=== PATIENT | female | born 1935 | race Caucasian/White ===

== ENCOUNTER 2017-01-03 07:53 | Outpatient (CLI) | payer MEDICARE, BC ==
[~2017-01-03] VITALS: Ht 165.1 cm; Wt 59.1 kg
--- NOTE | ~2017-01-03 | HEMODYNAMI ---
PATIENT:SANDI MONTAÑO MEDICAL RECORD: [id number] : 39 LOCATION:DCLEMENTE ADMISSION DATE: 01/03/17 Generatedon:01/03/201712:21 Patient name: SANDI MONTAÑO Patient #: [id number] SSN: : [id number] Date of study: 01/03/2017 Page: Of Hemodynamic Procedure Report Patient Data Patient Demographics Procedure consent was obtained First Name: SANDI Gender: Female Last Name: DANYEL : 1935 [facility] Initial: MICHAEL Age: 81 year(s) Patient #: [id number] Race: Additional ID: [id number] Contact details Address: [address] [place] [address] State: [place] City: [place] Zip code: [address] Past Medical History Allergies Allergen Reaction Date Comments Reported Other allergy 05/09/2016 Betapace, Codeine, Eliquis, Flagyl, Latex, Lortab, Morphine, Rhythmol, Sulfa, Tetracycline, Tramadol Other allergy 01/03/2017 Codeine, Eliquis, Flagyl, Latex, Lortab, Propafenone, Sotalol, Sulfa, Tetracycline, Tramadol Admission Admission Data Admission Date: 01/03/2017 Admission Time: 7:53 Admit Source: Other Lab Results Lab Result Date: 01/03/2017 Lab Result Time: 8:50 Biochemistry Name Units Result Min Max BUN mg/dl 14 --(--*-)-- 7 18 Creatinine mg/dl 1.1 --(--*-)-- 0.6 1.3 CBC Name Units Result Min Max Hematocrit % 35.6 *-(----)-- 42 54 Hemoglobin g/dl 11.8 *-(----)-- 13.5 17.5 Procedure Procedure Types Cath Procedure Diagnostic Procedure LHC LHC w/Coronaries PCI Procedure Coronary Stent Initial Miscellaneous Procedures Moderate Sedation up to 15 minutes Procedure Description Procedure Date Procedure Date: 01/03/2017 Procedure Start Time: 12:03 Procedure End Time: 12:18 Procedure Staff Name Function Floyd Young MD Performing Physician Oscar Iraheta RT Scrub Tramaine Reaves RN Nurse Ricco Jefferson RT Monitor Procedure Data Cath Procedure Fluoroscopy Diagnostic fluoroscopy Total fluoroscopy Time: 1.7 time: 1.7 min min Diagnostic fluoroscopy Total fluoroscopy dose: dose: 134.94 mGy 134.94 mGy Contrast Material Contrast Material Type Amount (ml) Isovue 300 71 Entry Location Entry Primary Successful Side Size Upsize Upsize Entry Closure Succes sful Closure Location (Fr) 1 (Fr) 2 (Fr) Remarks Device Remarks Femoral Right 5 Fr 6 Fr Exoseal artery Short Estimated blood loss: 10 ml Diagnostic catheters Device Type Used For End Catheter Placement Cordis 5Fr Pigtail Procedure Catheter (MP) Cordis 5Fr JL 4.0 Procedure Catheter (MP) Cordis 5Fr 3DRC Catheter Procedure (MP) Procedure Complications No complications Procedure Medications Medication Administration Route Dosage Oxygen NC 2 l/min Heparin Flush Bag added to field 2 bags (1000units/500ml NS) 0.9% NaCl I.V. 100 ml/hr Fentanyl I.V. 50 mcg Versed I.V. 1 mg Heparin Bolus I.V. 4000 units Hemodynamics Rest HGB: 11.8 (g/dl) Heart Rate: 56 (bpm) Pressure Samples Time Site Value (mmHg) Purpose Heart Use Rate(bpm) 12:04 LV 29/18,23 Snapshot 57 Snapshots Pre Cath Intra NCS Post Cath Vital Signs Time Heart Resp SPO2 NIBP (mmHg) Rhythm Pain Sedation Rate (ipm) (%) Status Level (bpm) 11:51:51 65 19 98 147/69(116) NSR 0 (11) 10(A) , No pain 11:56:13 57 18 94 140/63(114) NSR 0 (11) 10(A) , No pain 12:00:31 56 18 97 142/63(107) NSR 0 (11) 10(A) , No pain 12:05:28 55 17 98 141/59(114) NSR 0 (11) 9(A) , No pain 12:09:44 56 17 98 141/70(116) NSR 0 (11) 9(A) , No pain 12:14:04 58 19 98 146/63(118) NSR 0 (11) 9(A) , No pain 12:18:26 57 14 97 134/64(105) NSR 0 (11) 9(A) , No pain Medications Time Medication Route Dose Verified Delivered Reason Notes Effectiveness by by 11:45:21 Oxygen NC 2 Tramaine Tramaine Per physician l/min Jean Paul Reaves RN RN 11:45:36 Heparin Flush added 2 Tramaine Tramaine used for Bag to bags Jean Paul Reaves RN procedure (1000units/500ml field RN NS) 11:45:46 0.9% NaCl I.V. 100 Tramaine Zelayay Per physician ml/hr Jean Paul Reaves RN RN 12:01:21 Fentanyl I.V. 50 Tramaine Tramaine for sedation mcg Jean Paul Reaves RN RN 12:01:28 Versed I.V. 1 mg Tramaine Tramaine for sedation Jean Paul Reaves RN RN 12:09:38 Heparin Bolus I.V. 4000 Tramaine Redd for units Jean Paul Reaves RN anticoagulation sandblast or shotblast equipment tender Log Time Note 11:15:28 Tramaine Reaves RN sent for patient. Start room use. 11:41:11 Informed consent obtained and on chart 11:41:15 Admit Source: Other 11:41:27 Diagnostic Cath status Elective 11:41:37 Time tracking: Regular hours 11:41:40 Plan of Care:Hemodynamics will remain stable., Cardiac rhythm will remain stable., Comfort level will be maintained., Respiratory function will remain adequate., Patient/ family verbilizes understanding of procedure., Procedure tolerated without complication., Recovers from procedure without complications.. 11:41:44 Patient received from Pre/Post Procedure Room to [facility] Alert and oriented. Tansferred to table in Supine position. 11:41:45 Warm blankets applied, and vandana hugger turned on for patient comfort. 11:41:45 Correct patient and procedure confirmed by team. 11:41:46 ECG and BP/O2 sat monitors applied to patient. 11:41:57 H&P Date Dictated: 12/21/2016 Within 30 days and on chart., H&P Addendum completed by physician on day of procedure. (MUST COMPLETE FOR ALL OUTPATIENTS). 11:41:58 Pre-procedure instructions explained to patient. 11:41:58 Pre-op teaching completed and patient verbalized understanding. 11:45:21 Oxygen 2 l/min NC was administered by Tramaine Reaves RN; Per physician; 11:45:36 Heparin Flush Bag (1000units/500ml NS) 2 bags added to field was administered by Tramaine Reaves RN; used for procedure; 11:45:46 0.9% NaCl 100 ml/hr I.V. was administered by Tramaine Reaevs RN; Per physician; 11:50:33 Vital chart was started 11:51:30 Baseline sample Acquired. 11:51:35 Rhythm: sinus rhythm 11:51:39 Family in waiting room. 11:51:41 Patient NPO since Midnight. 11:52:34 Patient allergic to Other allergyCodeine, Eliquis, Flagyl, Latex, Lortab, Propafenone, Sotalol, Sulfa, Tetracycline, Tramadol 11:52:36 Is the patient allergic to Iodine/contrast media? No. 11:52:38 Is patient on blood thinner?Yes 11:52:40 ACC The patient was administered the following blood thiners within the last 24 hours: ACCPlavix 11:52:42 Patient diabetic? No. 11:52:45 Previous problem with sedation/anesthesia? No ? 11:52:45 Snore? Yes 11:52:46 Sleep apnea? No 11:52:47 Deviated septum? No 11:52:48 Opens mouth fully? Yes 11:52:48 Sticks out tongue? Yes 11:52:50 Airway obstruction? No ? 11:52:52 Dentures? No ? 11:52:54 Pre procedure: right dorsailis pedis pulse 2+ Normal; easily identifiable; not easily obliterated 11:52:56 Patient pain scale 7/10 ?. 11:53:02 IV patent on arrival in left antecubital with 0.9% NaCl at [facility]. 11:54:44 Lab Result : BUN 14 mg/dl ::44 Lab Result : Creatinine 1.1 mg/dl ::44 Lab Result : Hemoglobin 11.8 g/dl ::44 Lab Result : Hematocrit 35.6 % 11:54:46 Lab results completed and on chart. 11:54:48 Right groin area was prepped with chlora-prep and draped in sterile fashion 11:54:53 Alarms reviewed by RTate NTate 11:54:53 Sharps counted by scrub and verified by R.N. 11:54:56 Use device set Femoral Dx 11:54:58 Tegaderm 4 x 4 opened to sterile field. 11:54:59 Acist Syringe opened to sterile field. 11:54:59 Bag Decanter opened to sterile field. 11:55:01 Acist Manifold opened to sterile field. 11:55:02 Acist Hand Control opened to sterile field. 11:55:03 Medline Cath Pack opened to sterile field. 11:55:03 Terumo 5Fr Delton Sheath opened to sterile field. 11:55:04 St Anshu 260cm J .035 wire opened to sterile field. 11:55:04 Diagnostic Infinity 5Fr Multipack catheter opened to sterile field. 11:58:33 Physician paged 12:: Physician arrived :: --------ALL STOP TIME OUT------ 12::55 Final Timeout: patient, procedure, and site verified with staff and physician. All members of the team are in agreement. 12:00:57 Right groin site verified by team. 12:01:00 Physical assessment completed. ASA score P 2 - A patient with mild systemic disease as per Floyd Young MD. 12:01:09 Sedation plan: IV Moderate Sedation Versed, Fentanyl 12:01:11 Zero performed for pressure channel P1 12:01:21 Fentanyl 50 mcg I.V. was administered by Tramaine Reaves RN; for sedation; 12:01:28 Versed 1 mg I.V. was administered by Tramaine Reaves RN; for sedation; 12:03:32 Procedure started. 12:03:32 Full Disclosure recording started 12:03:35 Local anesthetic to right femoral artery with Lidocaine 2% by Floyd Yonug MD.INITIAL ACCESS ONLY 12:04:10 A 5 Fr sheath was inserted into the Right Femoral artery 12:04:16 A Cordis 5Fr Pigtail Catheter (MP) was advanced over the wire and used for Procedure. 12:04:53 LV gram done using TERRELL 12::58 Injector settings: Ml/sec: 102, Volume: 20, 12:05:03 EF : 60 % 12:05:07 A Cordis 5Fr JL 4.0 Catheter (MP) was advanced over the wire and used for Procedure. 12:05:40 LCA angiography performed. 12:06:50 Terumo 6Fr Delton Sheath opened to sterile field. 12:06:51 Gold Whisper J 300cm 0.014 guide wire opened to sterile field. 12:06:52 Sonalight BasixCompak Inflation Kit opened to sterile field. 12:06:58 Catheter exchanged over wire. 12:07:03 A Cordis 5Fr 3DRC Catheter (MP) was advanced over the wire and used for Procedure. 12:07:05 RCA angiography performed. 12:07:18 Catheter removed. 12:07:48 Proceeding to intervention. 12:07:55 Sheath upsized to a 6 Fr Short. 12:09:38 Heparin Bolus 4000 units I.V. was administered by Tramaine Reaves RN; for anticoagulation; 12:10:02 Cordis 6FR XBLAD 3.5 guide catheter opened to sterile field. 12:10:10 6 Fr xblad 3.5 guide catheter was inserted over the wire 12:10:16 whisper wire advanced. 12:11:05 ACC Pre-intervention VENUS Flow is 1. 12:11:07 Wire advanced across lesion. 12:11:36 Inflation Number: 1 A Ekaya.comtronic Integrity 2.5 X 12 stent was prepped and advanced across the Mid CX. The stent was deployed at 17 MARY BETH for 0:10 (min:sec). 12:11:51 Stent catheter was removed intact over wire. 12:11:51 Wire removed. 12:11:52 Guide catheter removed. 12:11:58 Cordis 6Fr Exoseal opened to sterile field. 12:13:00 Sheath removed intact; hemostasis achieved with Exoseal to the Right Femoral artery. 12:13:05 Procedure ended.(Physican Out) 12:13:55 Fluoroscopy time 01.70 minutes. 12:14:01 Fluoroscopy dose: 134.94 mGy 12:14:01 Flurop Dose total: 134.94 12:14:11 Contrast amount:Isovue 300 71ml. 12:14:23 Sharps counted by scrub and verified by R.N. 12:14:26 Insertion/operative site no bleeding no hematoma. 12:14:29 Post-op/insertion site Right Femoral artery dressed using a 4 x 4 and Tegaderm. 12:14:33 Post right femoral artery:stable, soft, clean and dry 12:14:34 Post Procedure Pulses reassessed and unchanged 12:14:36 Post-procedure physical assessment completed. ASA score P 2 - A patient with mild systemic disease as per Floyd Young MD. 12:14:38 Post procedure rhythm: unchanged. 12:14:42 Estimated blood loss: 10 ml 12:14:43 Post procedure instruction explained to patient.Patient verbalizes understanding. 12:14:43 Patient needs reinforcement of post procedure teaching. 12:15:52 Procedure type changed to Cath procedure, Diagnostic procedure, LHC, LHC w/Coronaries, PCI procedure, Coronary Stent Initial, Miscellaneous Procedures, Moderate Sedation up to 15 minutes 12:18:48 Procedure and supply charges have been captured, reviewed, submitted and are correct. 12:18:50 Procedure Complication : No complications 12:18:52 Vital chart was stopped 12:18:54 See physician's report for complete and final results. 12:18:55 Report given to Pre/Post Procedure Room. 12:18:57 Patient transfered to Pre/Post Procedure Room with Stretcher. 12:18:59 Procedure ended. 12:18:59 Full Disclosure recording stopped 12:19:35 End room use (Document Last) Intervention Summary Intervention Notes Time ActionType Lesion and Equipment Action# Pressure Duration Attributes Used 12:11:36 Place stent Mid CX Medtronic 1 17 00:10 Integrity 2.5 X 12 stent Device Usage Item Name Manufacture Quantity Catalog Hospital Part Current Minimal L ot# / Number Charge Number Stock Stock Serial# Code Tegaderm 4 3M 1 [id number] [id number] 974348 079529 5 x 4 Acist Acist 1 25632 973960 009633 618247 20 Syringe Medical Systems Inc Bag Microtek 1 2002S 644462 28839 796974 5 Decanter Medical Inc. Acist Acist 1 73119 884689 257804 806379 5 Manifold Medical Systems Inc Acist Hand Acist 1 62928 045135 942888 169949 5 Control Medical Systems Inc Medline Cardinal 1 [id number] 957744 28783 041577 5 Cath Pack Health Terumo 5Fr Terumo 1 [id number] 625215 171191 911830 [address] Anshu 1 525686 679698 839973 289503 30 260cm J .035 wire Diagnostic Cardinal 1 [id number] 433941 72306 166603 30 Infinity Health 5Fr Multipack catheter Cordis 5Fr Cardinal 1 657662 5 Pigtail Health Catheter (MP) Cordis 5Fr Cardinal 1 066177 5 JL 4.0 Health Catheter (MP) Terumo 6Fr Terumo 1 [id number] 338655 214199 207038 40 Delton Sheath Gold Gold 1 [id number] 960267 902213 549588 5 Whisper J Vascular 300cm 0.014 guide wire Merit Merit 1 HP7311 932730 826220 435325 15 BeOnDesk Medical Inflation Kit Cordis 5Fr Cardinal 1 005941 5 3DRC Health Catheter (MP) Cordis 6FR Cardinal 1 [id number] 823480 080776 038880 10 XBLAD 3.5 Health guide catheter Medtronic Medtronic 1 [id number] 325146 691925 3 0 [id number] Integrity 2.5 X 12 stent Cordis 6Fr Cardinal 1 EX600 647898 434565 293383 10 [facility] Signature Audit Perry Stage Time Signature Unsigned Intra-Procedure 01/03/2017 Ricco Jefferson 12:21:24 PM RT(R) Signatures Monitor : Ricco Jefferson RT Signature : Date : Time : [id number] [place] [address]
--- NOTE | ~2017-01-03 | OP ---
PATIENT NAME: SANDI MONTAÑO MEDICAL RECORD: [id number] :37 LOCATION:D.CAT ADMISSION DATE: SURGEON: OZIEL PHOENIX MD DATE OF OPERATION: 01/03/2017 PROCEDURES: 1. PTCA stent of the left circumflex. 2. Left heart catheterization. 3. Selective coronary angiography. 4. Left ventriculogram. INDICATION: Angina and coronary artery disease. PROCEDURE IN DETAIL: After informed consent was obtained and after detailed explanation of risks, benefits as well as alternative therapies, the patient elected to proceed with angiogram and angioplasty. The right femoral area was prepped and draped in normal sterile fashion. The right femoral artery was cannulated via modified Seldinger technique with placement of 6-Swazi sheath. All catheters exchanged through this sheath. FINDINGS: The left ventriculogram was performed in the standard 30-degree TERRELL view, reveals good cardiac wall motion throughout all segments. Overall ejection fraction estimated at 60%. SELECTIVE CORONARY ANGIOGRAPHY: 1. Left main is with no significant angiographic disease. 2. Left anterior descending has previously placed stents, these are widely patent with no significant restenosis. No disease elsewise throughout the LAD or its branches. 3. Left circumflex has previously placed stents, these are widely patient; however, there is 70% stenosis after the previously placed stents. 4. The right coronary has previously placed stents, these are widely patent. No disease elsewise throughout the right coronary or its branches. PTCA STENT OF THE LEFT CIRCUMFLEX: The stent used was a 2.5 x 12 mm Integrity. Result was 0% residual stenosis. OVERALL IMPRESSION: Successful percutaneous transluminal coronary angioplasty stent of the left circumflex going from 70% initial stenosis to 0% residual. TRANSINT:[id number] Voice Confirmation ID: [id number] DOCUMENT ID: [id number] OZIEL PHOENIX MD CC: [id number] DICTATION DATE: 01/03/17 1217 CONCRETE PAVER: 01/03/17 1331 [facility] [address] [place] [address]
[~2017-01-03 07:53] MED LIST: ACETAMINOPHEN500 M1 PO; AVALIDE 300-12.1 TA1 PO; AVAPRO300 MG PO; BAYER CHEWABLE81 MG PO; BIOTIN5 MG PO; CARDURA2 MG PO; CRANBERRY 400 M1 TA1 PO; DEPO-ESTRADIOL IM; DETROL LA4 MG PO; EDARBI40 MG PO; ESTROGEN SHOT; HYDROCHLOROTH12.5 M1 PO; HYDROCHLOROTHIA25 MG PO; KLOR-CON M2020 MEQ PO; LASIX20 MG PO; LINEZOLID; LOVENOX30 MG/0.3 SQ; MULTI-DAY VITAM1 TAB PO; NEURONTIN 300300 MG PO; NEXIUM40 MG PO; NITROSTAT0.4 MG SL; NORVASC2.5 MG PO; OXYBUTYNIN CHLOR5 MG PO; PACERONE200 MG PO; PLAVIX75 MG PO; PROTONIX40 MG PO; SALINE FLUSH10 ML IJ; SYNTHROID50 MCG PO; TOPROL XL50 MG PO; VALIUM5 MG PO; VITAMIN B-12500 MCG PO; ZOFRAN4 MG PO; [UNRECOGNIZED DRUG - OTHER] PO
[2017-01-03 08:24] VITALS: BP 217/85; Ht 165.1 cm; Wt 59.1 kg
[2017-01-03 08:48] LABS: CALCIUM 10.3 mg/dL (8.5-10.1); CARBON DIOXIDE 25.6 mmol/L (21.0-32.0); CREATININE - SERUM 1.1 mg/dL (0.6-1.3); POTASSIUM - SERUM 4.6 mmol/L (3.5-5.1)
[2017-01-03 08:55] LABS: BASOPHILS 0 % (0-2); EOSINOPHILS 0.4 % (0-7); HEMATOCRIT 35.6 % (36.0-48.0); HEMOGLOBIN 11.8 g/dL (12-16); IMMATURE GRANULOCYTES 0.4 % (0-5); LYMPHOCYTES 31.5 % (15-50); MCH 33.2 pg (26.0-34.0); MCHC 33.1 g/dL (31.0-37.0); MCV 100.3 fL (80.0-100.0); MEAN PLATELET VOLUME 9.3 fL (7.4-10.4); MONOCYTES 20.1 % (2-11); NEUTROPHILS 47.6 % (40-80); PLATELET COUNT 184 10x3/uL (130-400); RBC 3.55 10x6/uL (4.00-5.40); RDW 13.7 % (11.5-14.5); WBC 7.5 10x3/uL (4.8-10.8)
--- NOTE | 2017-01-03 12:45 | NUR ---
2L NC, NO RESP DISTRESS NOTED. RIGHT GROIN EXOSEAL CDI, NO BLEEDING OR HEMATOMA NOTED. NO C/O CHEST PAIN OR NAUSEA. VSS. SENIOR STATISTICAL PROGRAMMER SHOWS SB @ 55. INSTRUCTED PT TO KEEP HEAD FLAT ON PILLOW AND RIGHT LEG STRAIGHT.
--- NOTE | 2017-01-03 13:20 | NUR ---
DR. PHOENIX AT BEDSIDE SPEAKING WITH PT AND FAMILY. 2L NC, NO RESP DISTRESS NOTED. RIGHT GROIN EXOSEAL CDI, NO BLEEDING OR HEMATOMA NOTED. NO C/O CHEST PAIN OR NAUSEA. VSS. WILL CONTINUE TO MONITOR.
--- NOTE | 2017-01-03 13:35 | NUR ---
RESTING WITH HEAD FLAT ON PILLOW. 2L NC, NO RESP DISTRESS NOTED. RIGHT GROIN EXOSEAL CDI, NO BLEEDING OR HEMATOMA NOTED. VSS. NO C/O CHEST PAIN OR NAUSEA. CALL LIGHT WITHIN REACH.
--- NOTE | 2017-01-03 14:05 | NUR ---
RESTING QUIETLY WITH HEAD FLAT ON PILLOW. VSS. RIGHT GROIN EXOSEAL CDI, NO BLEEDING OR HEMATOMA NOTED. NO C/O AT THIS TIME. WILL CONTINUE TO MONITOR.
--- NOTE | 2017-01-03 14:35 | NUR ---
SLEEPING WITH HEAD FLAT ON PILLOW. 2L NC, NO RESP DISTRESS NOTED. VSS. RIGHT GROIN EXOSEAL CDI, NO BLEEDING OR HEMATOMA NOTED. NO C/O AT THIS TIME. CALL LIGHT WITHIN REACH.
--- NOTE | 2017-01-03 15:39 | NUR ---
HOB ELEVATED 30 DEGREES. SANDWICH TRAY AND SPRITE GIVEN.
--- NOTE | 2017-01-03 16:26 | NUR ---
UP FROM BED, AMBULATED TO BATHROOM TO VOID. PIV REMOVED FROM LEFT ARM, BANDAID APPLIED. UP TO BEDSIDE TO DRESS.
--- NOTE | 2017-01-03 16:34 | NUR ---
D/C INSTRUCTIONS DISCUSSED WITH PATIENT AND FAMILY AT BEDSIDE. R GROIN REMAINS C/D/I WITH NO HEMATOMA OR BLEEDING. WHEELED OUT VIA WHEELCHAIR BY CATH TEAM.
== END 2017-01-03 16:35 | disposition home or self-care (01) ==
LOC: D.CATH 07:53
PROVIDERS: Internal Medicine Interventional Cardiology
DX: I25.119 Atherosclerotic heart disease of native coronary artery with unspecified angina pectoris (principal); Z95.5 Presence of coronary angioplasty implant and graft

== ENCOUNTER 2017-05-14 07:56 | Outpatient (CLI) | payer MEDICARE, BC ==
[~2017-05-14] VITALS: Ht 165.1 cm; Wt 60.9 kg
--- NOTE | ~2017-05-14 | HEMODYNAMI ---
PATIENT:SANDI MONTAÑO MEDICAL RECORD: [id number] : 39 LOCATION:DCLEMENTE ADMISSION DATE: 05/14/17 Generatedon:05/14/201711:08 Patient name: SANDI MONTAÑO Patient #: [id number] SSN: : 1935 Date of study: 05/14/2017 Page: Of Hemodynamic Procedure Report Patient Data Patient Demographics Procedure consent was obtained First Name: SANDI Gender: Female Last Name: DANYEL : 1935 [facility] Initial: MICHAEL Age: 81 year(s) Patient #: [id number] Race: Additional ID: [id number] Contact details [address]: [address] [place] [address] State: [place] City: [place] Zip code: [address] Past Medical History Allergies Allergen Reaction Date Comments Reported Other allergy 05/09/2016 Betapace, Codeine, Eliquis, Flagyl, Latex, Lortab, Morphine, Rhythmol, Sulfa, Tetracycline, Tramadol Other allergy 01/03/2017 Codeine, Eliquis, Flagyl, Latex, Lortab, Propafenone, Sotalol, Sulfa, Tetracycline, Tramadol Other allergy 05/14/2017 Sulfa, Lortab, Eliquis, Codeine, Hydrocodone, Latex, Flacyl, Morphine, Sotalol, Tetracyline, Tramadol. Admission Admission Data Admission Date: 05/14/2017 Admission Time: 7:56 Lab Results Lab Result Date: 05/14/2017 Lab Result Time: 0:00 Biochemistry Name Units Result Min Max Creatinine mg/dl 1 --(--*-)-- 0.6 1.3 CBC Name Units Result Min Max Hemoglobin g/dl 12.8 -*(----)-- 13.5 17.5 Procedure Procedure Types Cath Procedure Diagnostic Procedure LHC LH w/Coronaries PCI Procedure Coronary Stent Initial x2 Miscellaneous Procedures Moderate Sedation up to 15 minutes Peripheral Cath Diagnostic Procedure Cath Peripheral Four Vessel Arteriogram Procedure Description Procedure Date Procedure Date: 05/14/2017 Procedure Start Time: 10:53 Procedure End Time: 11:07 Procedure Staff Name Function Floyd Young MD Performing Physician Isa Martin RT Scrub Ricco Jefferson RT Scrub Radha Wiley RN Nurse Shiloh Hill RT Monitor Procedure Data Cath Procedure Fluoroscopy Diagnostic fluoroscopy Total fluoroscopy Time: 3.2 time: 3.2 min min Diagnostic fluoroscopy Total fluoroscopy dose: 285 dose: 285 mGy mGy Contrast Material Contrast Material Type Amount (ml) Isovue 300 83 Entry Location Entry Primary Successful Side Size Upsize Upsize Entry Closure Succes sful Closure Location (Fr) 1 (Fr) 2 (Fr) Remarks Device Remarks Femoral Right 5 Fr 6 Fr Exoseal artery Short Estimated blood loss: 5 ml Diagnostic catheters Device Type Used For End Catheter Placement Cordis 5Fr Pigtail LV Angiography Catheter (MP) Cordis 5Fr JL 4.0 Left Coronary Catheter (MP) Angiography Cordis 5Fr 3DRC Catheter Right Coronary (MP) Angiography Cordis 5Fr 3DRC Catheter Cervical carotid (MP) (common) arteriography Cordis 5Fr 3DRC Catheter Cervical carotid (MP) (common) arteriography Cordis 5Fr 3DRC Catheter Vertebral (neck (MP) and/or head) arteriography Procedure Complications No complications Procedure Medications Medication Administration Route Dosage Oxygen NC 2 l/min Heparin Flush Bag added to field 2 bags (1000units/500ml NS) Lidocaine 2% added to field 20 Fentanyl I.V. 50 mcg Versed I.V. 1 mg Fentanyl I.V. 25 mcg Versed I.V. 0.5 mg Heparin Bolus I.V. 4000 units Integrilin (Bolus I.V. 5.6 ml 2mg/ml) Plavix P.O. 600 mg Hemodynamics Rest Heart Rate: 55 (bpm) Snapshots Pre Cath Intra NCS Post Cath Vital Signs Time Heart Resp SPO2 etCO2 [id number] NIBP (mmHg) Rhythm Pain Sedation Rate (ipm) (%) (mmHg) (mmHg) Status Level (bpm) 10:43:21 62 20 98 0 0 187/76(149) NSR 0 (11) 10(A) , No pain 10:48:12 57 17 95 0 0 156/65(117) NSR 0 (11) 9(A) , No pain 10:52:57 55 16 97 0 0 139/55(103) NSR 0 (11) 9(A) , No pain 10:57:38 56 18 97 0 0 145/58(112) NSR 0 (11) 9(A) , No pain 11:02:18 55 17 97 0 0 132/58(100) NSR 0 (11) 9(A) , No pain 11:06:55 60 12 97 0 0 139/63(108) NSR 0 (11) 9(A) , No pain Medications Time Medication Route Dose Verified Delivered Reason Notes Effectiveness by by 10:45:06 Oxygen NC 2 Radha Radha used for l/min Wiley Wiley instrument repair specialist RN 10:45:13 Heparin Flush added 2 Radha Radha used for Bag to bags Wiley Wiley procedure (1000units/500ml field RN RN NS) 10:45:20 Lidocaine 2% added 20ml Radha Radha used for to vial Wiley Wiley procedure field RN RN 10:49:05 Fentanyl I.V. 50 Radha Radha for sedation mcg Wiley Wiley RN RN 10:49:11 Versed I.V. 1 mg Radha Radha for sedation Wiley Wiley RN RN 10:54:17 Fentanyl I.V. 25 Radha Radha for sedation mcg Wiley Wiley RN RN 10:54:20 Versed I.V. 0.5 Radha Radha for sedation mg Wiley Wiley RN RN 11:00:18 Integrilin I.V. 5.6ml Radha Radha for 4.4ml (Bolus 2mg/ml) Wiley Wiley anticoagulation integrilin RN RN wasted 11:00:18 Heparin Bolus I.V. 4000 Radha Radha for units Wiley Wiley anticoagulation RN RN 11:06:07 Plavix P.O. 600 Radha Radha for mg Wiley Wiley antiplatelet RN RN therapy Procedure Log Time Note 10:32:34 Radha Wiley RN sent for patient. Start room use. 10:32:35 Time tracking: Regular hours 10:32:39 Plan of Care:Hemodynamics will remain stable., Cardiac rhythm will remain stable., Comfort level will be maintained., Respiratory function will remain adequate., Patient/ family verbilizes understanding of procedure., Procedure tolerated without complication., Recovers from procedure without complications.. 10:37:43 Patient received from Pre/Post Procedure Room to CCL 1 Alert and oriented. Tansferred to table in Supine position. 10:37:44 Warm blankets applied, and vandana hugger turned on for patient comfort. 10:37:44 Correct patient and procedure confirmed by team. 10:37:45 Signed procedure consent form obtained from patient. 10:37:46 ECG and BP/O2 sat monitors applied to patient. 10:37:47 Full Disclosure recording started 10:41:34 Vital chart was started 10:41:41 Rhythm: sinus rhythm 10:42:23 H&P Date Dictated: 05/09/2017 Within 30 days and on chart., H&P Addendum completed by physician on day of procedure. (MUST COMPLETE FOR ALL OUTPATIENTS). 10:42:24 Pre-procedure instructions explained to patient. 10:42:24 Pre-op teaching completed and patient verbalized understanding. 10:42:27 Family in patients room. 10:42:28 Patient NPO since Midnight. 10:43:47 Patient allergic to Other allergySulfa, Lortab, Eliquis, Codeine, Hydrocodone, Latex, Flacyl, Morphine, Sotalol, Tetracyline, Tramadol. 10:45:06 Oxygen 2 l/min NC was administered by Radha Wiley RN; used for procedure; 10:45:13 Heparin Flush Bag (1000units/500ml NS) 2 bags added to field was administered by Radha Wiley RN; used for procedure; 10:45:16 Is the patient allergic to Iodine/contrast media? No. 10:45:20 Lidocaine 2% 20ml vial added to field was administered by Radha Wiley RN; used for procedure; 10:45:20 Was the patient premedicated? No 10:45:21 Is patient on blood thinner?Yes 10:45:23 ACC The patient was administered the following blood thiners within the last 24 hours: ACCAspirin, ACCPlavix 10:45:25 Patient diabetic? No. 10:45:28 Previous problem with sedation/anesthesia? No ? 10:45:29 Snore? No 10:45:36 Sleep apnea? No 10:45:37 Deviated septum? No 10:45:37 Opens mouth fully? Yes 10:45:38 Sticks out tongue? Yes 10:45:40 Airway obstruction? No ? 10:45:46 Dentures? Yes Partial In 10:45:50 Pre procedure: right dorsailis pedis pulse 2+ Normal; easily identifiable; not easily obliterated 10:45:54 Patient pain scale 0/10 ?. 10:46:00 IV patent on arrival in left hand with 0.9% NaCl at [facility]. 10:46:24 Lab Result : Hemoglobin 12.8 g/dl 10:46:24 Lab Result : Creatinine 1 mg/dl 10:46:27 Lab results completed and on chart. 10:46:30 Right groin area was prepped with chlora-prep and draped in sterile fashion 10:46:31 Alarms reviewed by R. N. 10:46:32 Sharps counted by scrub and verified by R.N. 10:46:35 Use device set Femoral Dx 10:46:36 Acist Syringe opened to sterile field. 10:46:37 Bag Decanter opened to sterile field. 10:46:37 Medline Cath Pack opened to sterile field. 10:46:37 Terumo 5Fr Cataula Sheath opened to sterile field. 10:46:38 St Anshu 260cm J .035 wire opened to sterile field. 10:46:39 Acist Hand Control opened to sterile field. 10:46:39 Acist Manifold opened to sterile field. 10:46:39 Diagnostic Infinity 5Fr Multipack catheter opened to sterile field. 10:46:40 Tegaderm 4 x 4 opened to sterile field. 10:48:25 Final Timeout: patient, procedure, and site verified with staff and physician. All members of the team are in agreement. 10:48:26 Right groin site verified by team. 10:48:31 Physical assessment completed. ASA score P 2 - A patient with mild systemic disease as per Floyd Young MD. 10:48:33 Sedation plan: IV Moderate Sedation Versed, Fentanyl 10:49:05 Fentanyl 50 mcg I.V. was administered by Radha Wiley RN; for sedation; 10:49:11 Versed 1 mg I.V. was administered by Radha Wiley RN; for sedation; 10:51:42 Baseline sample Acquired. 10:51:50 Zero performed for pressure channel P1 10:53:55 Procedure started. 10:53:57 Local anesthetic to right femoral artery with Lidocaine 2% by Floyd Young MD.INITIAL ACCESS ONLY 10:54:09 A 5 Fr sheath was inserted into the Right Femoral artery 10:54:17 Fentanyl 25 mcg I.V. was administered by Radha Wiley RN; for sedation; 10:54:20 Versed 0.5 mg I.V. was administered by Radha Wiley RN; for sedation; 10:54:41 A Cordis 5Fr Pigtail Catheter (MP) was advanced over the wire and used for LV Angiography. 10:54:54 LV gram done using TERRELL 10:55:04 EF : 70 % 10:55:07 Injector settings: Ml/sec: 10, Volume: 20, 10:55:09 Catheter removed. 10:55:15 A Cordis 5Fr JL 4.0 Catheter (MP) was advanced over the wire and used for Left Coronary Angiography. 10:55:57 Catheter removed. 10:56:05 A Cordis 5Fr 3DRC Catheter (MP) was advanced over the wire and used for Right Coronary Angiography. 10:56:11 Terumo 6Fr Cataula Sheath opened to sterile field. 10:56:15 Viralicaisper J 300cm 0.014 guide wire opened to sterile field. 10:56:23 Cerevo BasixCompak Inflation Kit opened to sterile field. 10:57:23 A Cordis 5Fr 3DRC Catheter (MP) was advanced over the wire and used for Cervical carotid (common) arteriography.Right 10:57:51 A Cordis 5Fr 3DRC Catheter (MP) was advanced over the wire and used for Cervical carotid (common) arteriography.Left 10:58:12 A Cordis 5Fr 3DRC Catheter (MP) was advanced over the wire and used for Vertebral (neck and/or head) arteriography.Left 10:58:18 Catheter removed. 10:58:26 Cordis 6FR XBLAD 3.5 guide catheter opened to sterile field. 10:58:37 Sheath upsized to a 6 Fr Short. 10:59:07 6 Fr XBLAD 3.5 guide catheter was inserted over the wire 10:59:16 [email or web address] wire advanced. 11:00:18 Integrilin (Bolus 2mg/ml) 5.6ml I.V. was administered by Radha Wiley RN; for anticoagulation; 4.4ml integrilin wasted 11:00:18 Heparin Bolus 4000 units I.V. was administered by Radha Wiley RN; for anticoagulation; 11:01:02 Inflation Number: 1 A Abad OTW 2.5 x 12 stent was prepped and advanced across the Mid LAD. The stent was deployed at 11 MARY BETH for 0:06 (min:sec). 11:01:20 Wire redirected to Circ. 11:01:52 Stent catheter was removed intact over wire. 11:02:44 Inflation Number: 1 A Abad OTW 2.5 x 12 stent was prepped and advanced across the Dist CX. The stent was deployed at 15 MARY BETH for 0:10 (min:sec). 11:02:59 Stent catheter was removed intact over wire. 11:02:59 Wire removed. 11:03:00 Guide catheter removed. 11:03:11 Sheath removed intact; hemostasis achieved with Exoseal to the Right Femoral artery. 11:03:13 Procedure ended.(Physican Out) 11:03:27 Fluoroscopy time 03.20 minutes. 11:03:30 Flurop Dose total: 285 11:03:30 Fluoroscopy dose: 285 mGy 11:03:37 Contrast amount:Isovue 300 83ml. 11:03:40 Sharps counted by scrub and verified by R.N. 11:03:41 Insertion/operative site no bleeding no hematoma. 11:03:44 Post-op/insertion site Right Femoral artery dressed using a 4 x 4 and Tegaderm. 11:03:47 Post right femoral artery:stable, clean and dry 11:03:48 Post Procedure Pulses reassessed and unchanged 11:03:50 Post-procedure physical assessment completed. ASA score P 2 - A patient with mild systemic disease as per Floyd Young MD. 11:03:52 Post procedure rhythm: unchanged. 11:03:56 Estimated blood loss: 5 ml 11:03:57 Post procedure instruction explained to patient.Patient verbalizes understanding. 11:03:57 Patient needs reinforcement of post procedure teaching. 11:04:12 Procedure type changed to Cath procedure, Diagnostic procedure, LHC, LHC w/Coronaries, PCI procedure, Coronary Stent Initial x2, Miscellaneous Procedures, Moderate Sedation up to 15 minutes, Peripheral Cath Diagnostic Procedure, Cath Peripheral, Four Vessel Arteriogram 11:04:17 Procedure Complication : No complications 11:04:19 See physician's report for complete and final results. 11:04:34 Cordis 6Fr Exoseal opened to sterile field. 11:05:11 Procedure and supply charges have been captured, reviewed, submitted and are correct. 11:06:07 Plavix 600 mg P.O. was administered by Radha Wiley RN; for antiplatelet therapy; 11:07:44 Vital chart was stopped 11:07:46 Report given to Pre/Post Procedure Room. 11:07:48 Patient transfered to Pre/Post Procedure Room with Stretcher. 11:07:51 Procedure ended. 11:07:51 Full Disclosure recording stopped 11:07:56 End room use (Document Last) Intervention Summary Intervention Notes Time ActionType Lesion and Equipment Action# Pressure Duration Attributes Used 11:01:02 Place stent Mid LAD Jerome OTW 1 11 00:06 2.5 x 12 stent 11:02:44 Place stent Dist CX Abad OTW 1 15 00:10 2.5 x 12 stent Device Usage Item Name Manufacture Quantity Catalog Hospital Part Current Minimal Lot# / Number Charge Number Stock Stock Serial# Code Acist Acist 1 91787 [id number] 965189 137718 20 Syringe Medical [employer] Inc Bag Microtek 1 2002S 221439 02009 632367 5 Decanter Medical Inc. Medline Cardinal 1 [id number] 943460 02463 723862 5 Cath Pack Health Terumo 5Fr Terumo 1 HFF420 173671 653495 373745 [address] St Anshu 1 277834 147309 028764 656684 30 260cm J .035 wire Acist Hand Acist 1 51894 452948 877973 474169 5 Control Medical Systems Inc Acist Acist 1 78551 992829 718258 193692 5 Manifold Medical Systems Inc Diagnostic Cardinal 1 [id number] 251988 64922 513458 30 Infinity Health 5Fr Multipack catheter Tegaderm 4 3M 1 1626W 951268 181242 270627 5 x 4 Cordis 5Fr Cardinal 1 629587 5 Pigtail Health Catheter (MP) Cordis 5Fr Cardinal 1 738042 5 JL 4.0 Health Catheter (MP) Cordis 5Fr Cardinal 1 837015 5 3DRC Health Catheter (MP) Terumo 6Fr Terumo 1 RXR180 408469 175985 598387 40 Cataula Sheath Earn and Play 1 [id number] 654095 030780 419039 5 Whisper J Vascular 300cm 0.014 guide wire Merit Merit 1 CA3854 984850 743246 306349 15 [facility] Medical Inflation Kit Cordis 6FR Cardinal 1 [id number] 833912 097142 784912 10 XBLAD 3.5 Health guide catheter Jerome OTW Medtronic 2 [id number] 739255 16009 045491 5 [id number] 2.5 x 12 [id number] stent Cordis 6Fr Cardinal 1 EX600 954350 225306 180206 10 [facility] 1bib Signature Audit [place] Stage Time Signature Unsigned Intra-Procedure 05/14/2017 Shiloh 11:08:07 AM Counts RT(R) Signatures Monitor : Shiloh Signature : Counts RT Date : Time : [address] [address]
--- NOTE | ~2017-05-14 | OP ---
PATIENT NAME: SANDI MONTAÑO MEDICAL RECORD: [id number] :37 LOCATION:D.CAT ADMISSION DATE: SURGEON: OZIEL PHOENIX MD DATE OF OPERATION: 05/14/2017 PROCEDURE: 1. Four-vessel carotid. 2. Coronary angiography. INDICATION: Unsteady gait, carotid vascular disease. PROCEDURE IN DETAIL: After informed consent was obtained and after detailed explanation of risks, benefits as well as alternative therapies, the patient elected to proceed with angiogram. The right femoral area had a preexisting sheath from cardiac intervention. All catheters exchanged through this sheath. FINDINGS: 1. There was a subselection of each subclavian as well as the left carotid, right side. 2. The common internal and external carotids have mild plaquing, none greater than 20%, no flow-limiting stenosis. 3. Vertebral system: The vertebral system is devoid of disease. LEFT SYSTEM: The common internal and external carotids have mild plaquing, none greater than 20%. Vertebral artery has mild plaquing, none greater than 20%. OVERALL IMPRESSION: Wide patency of the carotid vasculature bilaterally with no significant flow limiting stenosis. Symptomatology is not secondary to carotid vascular insufficiency. TRANSINT:[id number] Voice Confirmation ID: [id number] DOCUMENT ID: [id number] OZIEL PHOENIX MD CC: [id number] DICTATION DATE: 05/14/17 1208 HOG DROPPER: 05/14/17 1230 REG [facility] [address] [id number]
--- NOTE | ~2017-05-14 | OP ---
PATIENT NAME: SANDI MONTAÑO MEDICAL RECORD: [id number] :37 LOCATION:D.CAT ADMISSION DATE: SURGEON: OZIEL PHOENIX MD DATE OF OPERATION: 05/14/2017 PROCEDURES: 1. PTCA stent to LAD. 2. PTCA stent to the left circumflex. 3. Left heart catheterization. 4. Selective coronary angiography. 5. Left ventriculogram. INDICATION: Angina and coronary artery disease. PROCEDURE IN DETAIL: After informed consent was obtained and after a detailed explanation of the risks, benefits as well as alternative therapies, the patient elected to proceed with angiogram and angioplasty. The right femoral area was prepped and draped in normal sterile fashion. The right femoral artery was cannulated via modified Seldinger technique with placement of 6-Setswana sheath. All catheters exchanged through this sheath. FINDINGS: Left ventriculogram was performed in standard 30-degree TERRELL view, reveals good cardiac wall motion throughout all segments. Overall ejection fraction is 60% to 70%. SELECTIVE CORONARY ANGIOGRAPHY: 1. Left main showed no significant angiographic disease. 2. Left anterior descending has previously placed stents, these are widely patent with no significant restenosis. However, after this, there is 75% stenosis in the mid LAD. 3. The left circumflex has previously placed stents, these are widely patent with no significant restenosis; however, in the mid distal vessel there is 75% stenosis. PTCA STENT OF THE LAD AND CIRCUMFLEX: Both vessels were addressed with a 2.5 x 12 mm Princess Anne stents. Result was 0% residual stenosis. OVERALL IMPRESSION: Successful percutaneous transluminal coronary angioplasty stent of the left anterior descending and circumflex going from 75% initial stenosis to 0% residual stenosis. TRANSINT:[id number] Voice Confirmation ID: [id number] DOCUMENT ID: [id number] OZIEL PHOENIX MD CC: [id number] DICTATION DATE: 05/14/17 1208 FAMILY MEDICINE PHYSICIAN: 05/14/17 1230 REG [facility] [address] [place] [address]
[2017-05-14 08:22] VITALS: BP 214/76; Ht 165.1 cm; Wt 60.9 kg
[2017-05-14 09:06] LABS: BASOPHILS 0.2 % (0-2); EOSINOPHILS 0.5 % (0-7); HEMATOCRIT 38.7 % (36.0-48.0); HEMOGLOBIN 12.8 g/dL (12-16); IMMATURE GRANULOCYTES 0.3 % (0-5); LYMPHOCYTES 28.7 % (15-50); MCH 33.6 pg (26.0-34.0); MCHC 33.1 g/dL (31.0-37.0); MCV 101.6 fL (80.0-100.0); MEAN PLATELET VOLUME 10.5 fL (7.4-10.4); MONOCYTES 19.3 % (2-11); PLATELET COUNT 185 10x3/uL (130-400); RBC 3.81 10x6/uL (4.00-5.40); WBC 5.7 10x3/uL (4.8-10.8)
[2017-05-14 09:13] LABS: ANION GAP 12.7 mmol/L (8-16); CALCIUM 10.1 mg/dL (8.5-10.1); CARBON DIOXIDE 25.7 mmol/L (21.0-32.0); POTASSIUM - SERUM 4.4 mmol/L (3.5-5.1)
--- NOTE | 2017-05-14 09:13 | NUR ---
INITAL BP 214/[address] PHOENIX NOTIFIED. ORDERS FOR .2 CLONIDINE PO MEDICATION GIVEN. 914 RECHECK OF BP NOW AT 179/74
[2017-05-14] MEDS ORDERED: PLAVIX75 MG PO (11:20)
--- NOTE | 2017-05-14 11:31 | NUR ---
2L NC, NO RESP DISTRESS NOTED. RIGHT GROIN 6F EXOSEAL CDI, NO BLEEDING OR HEMATOMA NOTED. NO C/O NAUSEA OR CHEST PAIN. INSTRUCTED PT TO KEEP HEAD FLAT ON PILLOW AND RIGHT LEG STRAIGHT. VSS. FAMILY AT BEDSIDE, CALL LIGHT WITHIN REACH.
--- NOTE | 2017-05-14 12:00 | NUR ---
2L NC, NO RESP DISTRESS NOTED. RIGHT GROIN 6F EXOSEAL CDI, NO BLEEDING OR HEMATOMA NOTED. DRINK AND SANDWICH TRAY GIVEN, NO C/O NAUSEA. DENIES ANY PAIN AT THIS TIME. VSS. WILL CONTINUE TO MONITOR.
--- NOTE | 2017-05-14 12:15 | NUR ---
RESTING QUIETLY. 2L NC, NO RESP DISTRESS NOTED. RIGHT GROIN 6F EXOSEAL CDI, NO BLEEDING OR HEMATOMA NOTED. VSS. NO C/O AT THIS TIME.
--- NOTE | 2017-05-14 12:45 | NUR ---
RIGHT GROIN 6F EXOSEAL CDI, NO BLEEDING OR HEMATOMA NOTED. VSS. 2L NC, NO RESP DISTRESS. FAMILY AT BEDSIDE, CALL LIGHT WITHIN REACH.
--- NOTE | 2017-05-14 13:15 | NUR ---
RIGHT GROIN 6F EXOSEAL CDI, NO BLEEDING OR HEMATOMA NOTED. 2L NC, NO RESP DISTRESS. NO C/O AT THIS TIME. FAMILY AT BEDSIDE. VSS. WILL CONTINUE TO MONITOR.
--- NOTE | 2017-05-14 14:13 | NUR ---
RESTING QUIETLY WITH EYES CLOSED. VSS. RIGHT GROIN 6F EXOSEAL CDI, NO BLEEDING OR HEMATOMA NOTED. 2L NC, NO RESP DISTRESS. NO C/O PAIN. CALL LIGHT WITHIN REACH.
--- NOTE | 2017-05-14 14:30 | NUR ---
HOB ELEVATED 30 DEGREES. RIGHT GROIN 6F EXOSEAL CDI, NO BLEEDING NOTED.
--- NOTE | 2017-05-14 14:45 | NUR ---
LEFT FA PIV D/C'D WITH CATHETER INTACT, BAND AID TO SITE. UP TO BEDSIDE TO GET DRESSED.
--- NOTE | 2017-05-14 14:55 | NUR ---
UP TO RESTROOM TO VOID.
--- NOTE | 2017-05-14 15:08 | NUR ---
DISCHARGE INSTRUCTIONS GIVEN, VERBALIZED UNDERSTANDING.
--- NOTE | 2017-05-14 15:15 | NUR ---
TAKEN OUT VIA WHEELCHAIR BY CATH DESIGN CENTER CONSULTANT. LEFT FACILITY WITH FAMILY MEMBER AND ALL PERSONAL BELONGINGS.
== END 2017-05-14 15:15 | disposition home or self-care (01) ==
LOC: D.CATH 07:56
PROVIDERS: Internal Medicine Interventional Cardiology
DX: I25.119 Atherosclerotic heart disease of native coronary artery with unspecified angina pectoris (principal); R42 Dizziness and giddiness; R06.02 Shortness of breath; Z01.812 Encounter for preprocedural laboratory examination
CPT/HCPCS: 93458; 36215 ×2; 36216; C9600 ×2

== ENCOUNTER → 2017-12-12 17:44 | Outpatient (CLI) | payer MEDICARE, BC ==
[2017-05-14 08:22] VITALS: BMI 22.3
[2017-12-12 18:49] LABS: ANION GAP 11.3 mmol/L (8-16); CALCIUM 10.4 mg/dL (8.5-10.1); CARBON DIOXIDE 25.6 mmol/L (21.0-32.0); CREATININE - SERUM 1.2 mg/dL (0.6-1.3); POTASSIUM - SERUM 4.9 mmol/L (3.5-5.1); T4 THYROXIN - FREE 1.2 ng/dL (0.76-1.46); THYROID STIMULATING HORMONE 1.86 uIU/mL (0.36-3.74)
== END | disposition home or self-care (01) ==
LOC: D.LABREF 17:44
PROVIDERS: Internal Medicine Cardiovascular Disease
DX: R42 Dizziness and giddiness (principal); R00.2 Palpitations; R06.02 Shortness of breath

== ENCOUNTER 2018-01-07 22:38 | Emergency (ER) | payer MEDICARE, BC ==
[2017-05-14 08:22] VITALS: BMI 22.3
[2018-01-07 23:48] LABS: ALBUMIN 3.6 g/dL (3.4-5.0); ALKALINE PHOSPHATASE 70 U/L (46-116); ALT (SGPT) 18 U/L (10-68); BILIRUBIN - TOTAL 0.81 mg/dL (0.2-1.3); CALC OSMOLALITY 275 mosm/kg (275-300); CALCIUM 10.2 mg/dL (8.5-10.1); CARBON DIOXIDE 24.7 mmol/L (21.0-32.0); CHLORIDE - SERUM 102 mmol/L (98-107); CREATININE - SERUM 1.1 mg/dL (0.6-1.3); GLUCOSE 106 mg/dL (74-106); POTASSIUM - SERUM 4.6 mmol/L (3.5-5.1); PROTEIN - SERUM 8.5 g/dL (6.4-8.2); SODIUM 137 mmol/L (136-145); UREA NITROGEN 18 mg/dL (7-18); eGFR NON AFRICAN AMERICAN 51 mL/min (90-120)
[2018-01-07 23:57] LABS: CHOL - HDL RATIO 3.3 ratio (2.3-4.1); CHOLESTEROL, TOTAL 198 mg/dL (0-200); CKMB 1.4 U/L (0.0-3.6); CREATINE KINASE 82 UL (21-215); HDL CHOLESTEROL 60 mg/dL (32-96); LDL CHOLESTEROL 117 mg/dL (0-100); TRIGLYCERIDE 109 mg/dL (30-200)
[2018-01-07 23:58] LABS: TROPONIN-I < 0.017 ng/mL (0.000-0.060)
[2018-01-07 23:59] LABS: BASOPHILS 0.1 % (0-2); EOSINOPHILS 0.2 % (0-7); HEMATOCRIT 41.1 % (36.0-48.0); HEMOGLOBIN 14.1 g/dL (12-16); IMMATURE GRANULOCYTES 0.4 % (0-5); LYMPHOCYTES 30.8 % (15-50); MCH 33.8 pg (26.0-34.0); MCHC 34.3 g/dL (31.0-37.0); MCV 98.6 fL (80.0-100.0); MEAN PLATELET VOLUME 11.5 fL (7.4-10.4); MONOCYTES 23.4 % (2-11); NEUTROPHILS 45.1 % (40-80); PLATELET COUNT 211 10x3/uL (130-400); RBC 4.17 10x6/uL (4.00-5.40); RDW 13.5 % (11.5-14.5); WBC 8.5 10x3/uL (4.8-10.8)
== END 2018-01-08 02:05 | disposition home or self-care (01) ==
LOC: D.ER 22:38
PROVIDERS: Emergency Medicine
DX: R07.9 Chest pain, unspecified (principal); I48.91 Unspecified atrial fibrillation; I10 Essential (primary) hypertension; R00.0 Tachycardia, unspecified; I44.7 Left bundle-branch block, unspecified

== ENCOUNTER 2018-02-13 08:09 | Outpatient (CLI) | payer MEDICARE, BC ==
[~2018-02-13] VITALS: Ht 163.8 cm; Wt 61.4 kg
--- NOTE | ~2018-02-13 | OP ---
PATIENT NAME: SANDI MONTAÑO MEDICAL RECORD: [id number] :37 LOCATION:D.CAT ADMISSION DATE: SURGEON: OZIEL PHOENIX MD DATE OF OPERATION: 02/13/2018 PROCEDURES: 1. PTCA LAD. 2. PTCA LAD diagonal. 3. Intravascular ultrasound. 4. Left heart catheterization. 5. Selective coronary angiography. 6. Left ventriculogram. INDICATION: Angina and coronary artery disease. PROCEDURE IN DETAIL: After informed consent was obtained and after detailed explanation of risks, benefits as well as alternative therapies, the patient elected to proceed with angiogram and angioplasty. The right femoral area was prepped and draped in normal sterile fashion. Right femoral artery was cannulated via modified Seldinger technique with placement of 6-Mauritanian sheath. All catheters exchanged through this sheath. FINDINGS: The left ventriculogram was performed on a standard 30-degree TERRELL view, reveals good cardiac wall motion throughout all segments. Overall ejection fraction estimated 60%. SELECTIVE CORONARY ANGIOGRAPHY: 1. Left main is with no significant angiographic disease. 2. Left anterior descending has previously placed stent. There is 70% in-stent restenosis confirmed by intravascular ultrasound. 3. Left circumflex has moderate irregularities, but no flow-limiting stenosis. Previously placed stent is widely patent. 4. The right coronary has previously placed stents. These are widely patent with no significant restenosis. No disease elsewise throughout the RCA or its branches. PTCA OF THE LAD AND DIAGONAL: LAD was addressed with a 3.0 high pressure balloon, the diagonal with a 1.5 balloon. Result was 0% residual stenosis. OVERALL IMPRESSION: Successful percutaneous transluminal coronary angioplasty for in-stent restenosis of the left anterior descending going from 70% initial stenosis to 0% residual. TRANSINT:[id number] Voice Confirmation ID: [id number] DOCUMENT ID: [id number] OZIEL PHOENIX MD at 1207 CC: [id number] DICTATION DATE: 02/13/18 1059 REGIONAL MERCHANDISING MANAGER: 02/13/18 1117 DEP CLI 02/13/[address] [address]
--- NOTE | ~2018-02-13 | HEMODYNAMI ---
PATIENT:SANDI MONTAÑO MEDICAL RECORD: [id number] : 39 LOCATION:DCLEMENTE ADMISSION DATE: 02/13/18 Generatedon:02/13/201811:06 Patient name: SANDI MONTAÑO Patient #: [id number] SSN: : 1935 Date of study: 02/13/2018 Page: Of Hemodynamic Procedure Report Patient Data Patient Demographics Procedure consent was obtained First Name: SANDI Gender: Female Last Name: DANYEL : 1935 [facility] Initial: MICHAEL Age: 82 year(s) Patient #: [id number] Race: Additional ID: [id number] Contact details Address: [address] [place] [address] State: [facility] Zip code: [address] Past Medical History Allergies Allergen Reaction Date Comments Reported Other allergy 05/09/2016 Betapace, Codeine, Eliquis, Flagyl, Latex, Lortab, Morphine, Rhythmol, Sulfa, Tetracycline, Tramadol Other allergy 01/03/2017 Codeine, Eliquis, Flagyl, Latex, Lortab, Propafenone, Sotalol, Sulfa, Tetracycline, Tramadol Other allergy 05/14/2017 Sulfa, Lortab, Eliquis, Codeine, Hydrocodone, Latex, Flacyl, Morphine, Sotalol, Tetracyline, Tramadol. Admission Admission Data Admission Date: 02/13/2018 Admission Time: 8:09 Lab Results Lab Result Date: 02/13/2018 Lab Result Time: 0:00 Biochemistry Name Units Result Min Max BUN mg/dl 13 --(--*-)-- 7 18 Creatinine mg/dl 1.2 --(---*)-- 0.6 1.3 Procedure Procedure Types Cath Procedure Diagnostic Procedure LHC LH w/Coronaries FFR/IVUS Intra-Coronary IVUS Initial Sedation Charges Moderate Sedation up to 15 minutes PCI Procedure PTCA PTCA Initial PTCA Additional Procedure Description Procedure Date Procedure Date: 02/13/2018 Procedure Start Time: 10:32 Procedure End Time: 11:05 Procedure Staff Name Function Floyd Young MD Performing Physician Oscar Iraheta RT Monitor Tramaine Reaves RN Nurse Isa Martin RT Scrub Procedure Data Cath Procedure Fluoroscopy Diagnostic fluoroscopy Total fluoroscopy Time: 6.8 time: 6.8 min min Diagnostic fluoroscopy Total fluoroscopy dose: dose: 355.17 mGy 355.17 mGy Contrast Material Contrast Material Type Amount (ml) Isovue 370 111 Entry Location Entry Primary Successful Side Size Upsize Upsize Entry Closure Succes sful Closure Location (Fr) 1 (Fr) 2 (Fr) Remarks Device Remarks Femoral Right 5 Fr 6 Fr Exoseal artery Short Estimated blood loss: 10 ml Diagnostic catheters Device Type Used For End Catheter Placement MULTIPACK Pigtail 5 Fr Procedure catheter MULTIPACK JL 4.0 5Fr Procedure catheter MULTIPACK 3DRC 5Fr Procedure catheter Procedure Medications Medication Administration Route Dosage Oxygen etCO2 Nasal cannula 2 l/min 0.9% NaCl I.V. 1000 ml/hr Heparin Flush Bag added to field 2 bags (1000units/500ml NS) Fentanyl I.V. 50 mcg Versed I.V. 1 mg Heparin Bolus I.V. 4000 units Fentanyl I.V. 50 mcg Versed I.V. 1 mg Nitroglycerin IC/IA I.C. 100 mcg Integrilin (Bolus I.V. 5.6 ml 2mg/ml) Nitroglycerin IC/IA I.C. 100 mcg Hemodynamics Rest Heart Rate: 54 (bpm) Pressure Samples Time Site Value (mmHg) Purpose Heart Use Rate(bpm) 10:34 LV 16/17,-45 Snapshot 101 Snapshots Pre Cath Intra NCS Post Cath Vital Signs Time Heart Resp SPO2 etCO2 NIBP (mmHg) Rhythm Pain Sedation Rate (ipm) (%) (mmHg) Status Level (bpm) 10:20:46 56 16 99 26.9 222/92(184) NSR 0 (11) 10(A) , No pain 10:25:27 58 16 92 23.9 173/71(137) NSR 0 (11) 10(A) , No pain 10:30:55 56 17 97 22.4 159/65(126) NSR 0 (11) 9(A) , No pain 10:35:27 65 16 88 0 150/75(113) NSR 0 (11) 9(A) , No pain 10:39:53 60 16 95 28.4 145/68(118) NSR 0 (11) 9(A) , No pain 10:44:22 58 17 97 20.2 132/53(107) NSR 0 (11) 9(A) , No pain 10:48:44 55 16 97 32.2 132/54(99) NSR 0 (11) 9(A) , No pain 10:52:58 59 17 94 34.4 135/62(101) NSR 0 (11) 9(A) , No pain 10:57:08 60 16 97 34.4 148/72(118) NSR 0 (11) 9(A) , No pain 11:01:26 58 14 97 25.4 147/65(120) NSR 0 (11) 9(A) , No pain 11:05:44 57 13 97 34.4 153/66(120) NSR 0 (11) 9(A) , No pain Medications Time Medication Route Dose Verified Delivered Reason Notes Effectiveness by by 10:26:09 Oxygen etCO2 2 Floyd Redd used for Nasal l/min Hannah Reaves RN procedure cannula 10:26:19 0.9% NaCl I.V. 1000 Floyd Redd Per physician ml/hr Hannah Reaves RN 10:26:29 Heparin Flush added 2 Floyd Redd used for Bag to bags Hannah Reaves RN procedure (1000units/500ml field NS) 10:30:02 Fentanyl I.V. 50 Floyd Redd for sedation mcg Hannah Reaves RN 10:30:10 Versed I.V. 1 mg Floyd Zelayay for sedation Hannah Reaves RN 10:39:13 Heparin Bolus I.V. 4000 Floyd Redd for units Hannah Reaves RN anticoagulation 10:39:18 Fentanyl I.V. 50 Floyd Zelayay for sedation mcg Hannah Reaves RN 10:39:23 Versed I.V. 1 mg Floyd Zelayay for sedation Hannah Reaves RN 10:50:08 Nitroglycerin I.C. 100 Floyd Barrientos for IC/IA mcg Hannah Young MD vasodilation 10:51:33 Nitroglycerin I.C. 100 Floyd Barrientos for IC/IA mcg Hannah Young MD vasodilation 10:52:00 Integrilin I.V. 5.6 Floyd Barrientos for (Bolus 2mg/ml) ml Hannah Young MD antiplatelet therapy Procedure Log Time Note 10:00:29 Oscar GUTHRIE(R) (CV) sent for patient. Start room use. 10:06:30 Time tracking: Regular hours (M-F 7:00 - 5:00) 10:06:32 Plan of Care:Hemodynamics will remain stable., Cardiac rhythm will remain stable., Comfort level will be maintained., Respiratory function will remain adequate., Patient/ family verbilizes understanding of procedure., Procedure tolerated without complication., Recovers from procedure without complications.. 10:06:34 Signed procedure consent form obtained from patient. 10:06:45 H&P Date Dictated: 01/24/2018 Within 30 days and on chart., H&P Addendum completed by physician on day of procedure. (MUST COMPLETE FOR ALL OUTPATIENTS). 10:12:58 Patient received from Pre/Post Procedure Room to CCL 3 Alert and oriented. Tansferred to table in Supine position. 10:12:59 Warm blankets applied, and vandana hugger turned on for patient comfort. 10:12:59 Correct patient and procedure confirmed by team. 10:13:00 ECG and BP/O2 sat monitors applied to patient. 10:18:03 Vital chart was started 10:25:51 Baseline sample Acquired. 10:25:57 Rhythm: sinus bradycardia 10:25:59 Full Disclosure recording started 10:26:06 Pre-procedure instructions explained to patient. 10:26:07 Pre-op teaching completed and patient verbalized understanding. 10:26:09 Oxygen 2 l/min etCO2 Nasal cannula was administered by Tramaine Reaves RN; used for procedure; 10:26:10 Family in waiting room. 10:26:13 Patient NPO since Midnight. 10:26:19 0.9% NaCl 1000 ml/hr I.V. was administered by Tramaine Reaves RN; Per physician; 10:26:21 Is the patient allergic to Iodine/contrast media? No. 10:26:29 Heparin Flush Bag (1000units/500ml NS) 2 bags added to field was administered by Tramaine Reaves RN; used for procedure; 10:26:39 Is patient on blood thinner?Yes 10::43 ACC The patient was administered the following blood thiners within the last 24 hours: ACCPlavix 10::46 Patient diabetic? No. 10::50 Patient not . Patient is over age 55. 10::51 ----Pre-sedation anethsthesia assessment.---- 10::55 Previous problem with sedation/anesthesia? No ? 10::57 Snore? Yes 10::58 Sleep apnea? No 10:27:00 Deviated septum? No 10:27:01 Opens mouth fully? Yes 10:27:03 Sticks out tongue? Yes 10:27:06 Airway obstruction? No ? 10:27:21 Dentures? Yes IN TIGHT 10:27:27 Pre procedure: right posterior tibial pulse 1+ Palpable, but thready & weak; easily obliterated 10:27:42 Patient pain scale 0/10 ?. 10:27:48 IV patent on arrival in left wrist with 0.9% NaCl at [facility]. 10:28:10 Lab Result : BUN 13 mg/dl 10:28:10 Lab Result : Creatinine 1.2 mg/dl 10:28:14 Lab results completed and on chart. 10:28:18 Right groin area was prepped with chlora-prep and draped in sterile fashion 10:28:19 Alarms reviewed by R. N. 10:28:20 Sharps counted by scrub and verified by R.N. 10:28:23 --------ALL STOP TIME OUT------ 10::23 Final Timeout: patient, procedure, and site verified with staff and physician. All members of the team are in agreement. 10:28:26 Right groin site verified by team. 10:28:29 Physical assessment completed. ASA score P 2 - A patient with mild systemic disease as per Floyd Young MD. 10:28:33 Sedation plan: IV Moderate Sedation Medication:Versed, Fentanyl 10:30:02 Fentanyl 50 mcg I.V. was administered by Tramaine Reaves RN; for sedation; 10:30:07 Use device set Femoral Dx 10:30:09 ACIST Syringe (77795) opened to sterile field. 10:30:10 Versed 1 mg I.V. was administered by Tramaine Reaves RN; for sedation; 10:30:10 Bag Decanter () opened to sterile field. 10:30:20 Medline Cath Pack ([id number]) opened to sterile field. 10:30:21 DIAGNOSTIC WIRE .035 260cm J wire (080735) opened to sterile field. 10:30:23 ACIST Hand Control (94141) opened to sterile field. 10:30:24 ACIST Manifold (35859) opened to sterile field. 10:30:59 DIAGNOSTIC Multipack 5Fr catheter set ([id number]) opened to sterile field. 10:30:59 Tegaderm 4 x 4 (1626W) opened to sterile field. 10:31:06 SHEATH Prelude 5Fr 0.035 (OTN-9P-77-035) opened to sterile field. 10:32:45 Procedure started. 10:32:51 Local anesthetic to right femoral artery with Lidocaine 2% by Floyd Young MD.INITIAL ACCESS ONLY 10:33:14 A 5 Fr sheath was inserted into the Right Femoral artery 10:33:38 Zero performed for pressure channel P1 10:33:45 Zero performed for pressure channel P1 10:33:47 Zero performed for pressure channel P1 10:33:50 Zero performed for pressure channel P1 10:34:11 A MULTIPACK Pigtail 5 Fr catheter was advanced over the wire and used for Procedure. 10:34:16 LV hemodynamics recorded. 10:34:26 EF : 60 % 10:34:28 LV gram done using TERRELL 10:34:30 Catheter removed. 10:34:44 A MULTIPACK JL 4.0 5Fr catheter was advanced over the wire and used for Procedure. 10:35:06 LCA angiography performed. 10:36:16 Catheter removed. 10:36:21 A MULTIPACK 3DRC 5Fr catheter was advanced over the wire and used for Procedure. 10:36:39 RCA angiography performed. 10:36:59 Catheter removed. 10:37:19 Proceeding to intervention. 10:37:34 SHEATH 6Fr Prelude ([id number]) opened to sterile field. 10:37:41 INFLATOR Merit BasixCompak (PN0942) opened to sterile field. 10:37:49 CHOICE PT Extra Support 182cm wire ([id number]) opened to sterile field. 10:38:01 GUIDE 6FR XBLAD 3.5 catheter (11294125) opened to sterile field. 10:38:12 Sheath upsized to a 6 Fr Short. 10:38:30 6 Fr XBLAD 3.50 guide catheter was inserted over the wire 10:38:42 Mccamey [place] IVUS Catheter (10146X) opened to sterile field. 10:38:51 CHOICE wire advanced. 10:39:13 Heparin Bolus 4000 units I.V. was administered by Tramaine Reaves RN; for anticoagulation; 10:39:15 Wire advanced across lesion. 10:39:18 Fentanyl 50 mcg I.V. was administered by Tramaine Reaves RN; for sedation; 10:39:21 IVUS catheter advanced over wire. 10:39:23 Versed 1 mg I.V. was administered by Tramaine Reaves RN; for sedation; 10:42:10 IVUS pass to LAD lesion performed. 10:42:13 IVUS catheter removed over wire. 10:42:29 68.4 % 10:43:19 Inflate balloon Inflation number: 1 A NC EUPHORA 3.0 x 20 balloon ([id number]) was prepped and advanced across the Mid LAD, then inflated to 17 MARY BETH for 0:10 (min:sec). 10:43:44 Inflation number: 2 The NC EUPHORA 3.0 x 20 balloon ([id number]) was reinflated across the Mid LAD, to 19 MARY BETH for 0:10 (min:sec). 10:44:18 Wire redirected to DIAGONAL. 10:44:25 Wire removed. 10:45:04 CHOICE PT Extra Support 182cm wire ([id number]) opened to sterile field. 10:46:01 Wire advanced across lesion. 10:47:17 The EUPHORA 2.0 x 10 Balloon ([id number]) was advanced and then removed because of failure to cross lesion 10:48:24 Inflate balloon Inflation number: 1 A EUPHORA 1.5 x 10 Balloon ([id number]) was prepped and advanced across the 1st Diag, then inflated to 21 MARY BETH for 0:10 (min:sec). 10:48:53 Wire redirected to LAD. 10:50:08 Nitroglycerin IC/IA 100 mcg I.C. was administered by Floyd Young MD; for vasodilation; 10:51:33 Nitroglycerin IC/IA 100 mcg I.C. was administered by Floyd Young MD; for vasodilation; 10:52:00 Integrilin (Bolus 2mg/ml) 5.6 ml I.V. was administered by Floyd Young MD; for antiplatelet therapy; 10:52:54 Balloon removed over the wire. 10:52:55 Wire removed. 10:52:56 Guide catheter removed. 10:53:19 Procedure type changed to Cath procedure, Diagnostic procedure, LHC, LHC w/Coronaries, FFR/IVUS, Intra-Coronary IVUS Initial, Sedation Charges, Moderate Sedation up to 15 minutes, PCI procedure, PTCA, PTCA Initial, PTCA Additional 10:55:16 EXOSEAL 6Fr (EX600) opened to sterile field. 10:55:40 Sheath removed intact; hemostasis achieved with Exoseal to the Right Femoral artery. 10:55:43 Procedure ended.(Physican Out) 10:56:10 Fluoroscopy time 06.80 minutes. 10:56:20 Fluoroscopy dose: 355.17 mGy 10:56:20 Flurop Dose total: 355.17 10:57:10 Contrast amount:Isovue 370 111ml. 10:57:11 Sharps counted by scrub and verified by R.N. 10:57:14 Insertion/operative site no bleeding no hematoma. 10:57:18 Post-op/insertion site Right Femoral artery dressed using a 4 x 4 and Tegaderm. 10:57:21 Post right femoral artery:stable, soft, clean and dry 10:57:23 Post Procedure Pulses reassessed and unchanged 10:57:25 Post-procedure physical assessment completed. ASA score P 2 - A patient with mild systemic disease as per Floyd Young MD. 10:57:27 Post procedure rhythm: unchanged. 10:57:29 Estimated blood loss: 10 ml 10:57:30 Post procedure instruction explained to patient.Patient verbalizes understanding. 10:57:31 Patient needs reinforcement of post procedure teaching. 11:01:18 Procedure and supply charges have been captured, reviewed, submitted and are correct. 11:04:24 FEMSTOP Gold (N67145) opened to sterile field. 11:05:12 GROIN STARTED BLEEDING FEMOSTOP APPLIED AT 147 11:05:31 Vital chart was stopped 11:05:32 See physician's report for complete and final results. 11:05:34 Report given to Pre/Post Procedure Room. 11:05:52 Patient transfered to Pre/Post Procedure Room with Stretcher. 11:05:55 Procedure ended. 11:05:55 Full Disclosure recording stopped 11:05:59 End room use (Document Last) Intervention Summary Intervention Notes Time ActionType Lesion and Equipment Action# Pressure Duration Attributes Used 10:43:19 Inflate Mid LAD NC EUPHORA 1 17 00:10 balloon 3.0 x 20 balloon ([id number]) 10:43:44 Reinflate Mid LAD NC EUPHORA 2 19 00:10 balloon 3.0 x 20 balloon ([id number]) 10:47:17 Discard EUPHORA 2.0 Balloon x 10 Balloon ([id number]) 10:48:24 Inflate 1st Diag EUPHORA 1.5 1 21 00:10 balloon x 10 Balloon ([id number]) Device Usage Item Name Manufacture Quantity Catalog Number Hospital Part Current M inimal Lot# / Charge Number Stock Stock Serial# Code ACIST Syringe Acist 1 50495 307992 986482 286429 2 0 (43159) Medical Systems Inc Bag Decanter Microtek 1 2001S 850261 98233 167830 5 (2001S) Medical Inc. Medline Cath Cardinal 1 [id number] 052156 50276 362482 5 Pack Health ([id number]) DIAGNOSTIC WIRE [place] 1 583645 789316 071559 396575 3 0 .035 260cm J wire (773910) ACIST Hand Acist 1 45426 323144 973819 480081 5 Control (07010) Medical Systems Inc ACIST Manifold Acist 1 95785 181561 984622 116045 5 (76144) Medical Systems Inc DIAGNOSTIC Cardinal 1 JE6420 072886 77472 345085 3 0 Multipack 5Fr Health catheter set (VH9693) Tegaderm 4 x 4 3M 1 1626W 540734 960390 272233 5 (1626W) SHEATH Prelude Merit 1 FEG-1L-04-035 417682 178502 195005 5 5Fr 0.035 Medical (EVE-4E-05-035) MULTIPACK Cardinal 1 726705 5 Pigtail 5 Fr Health catheter MULTIPACK JL Cardinal 1 030163 5 4.0 5Fr Health catheter MULTIPACK 3DRC Cardinal 1 554700 5 5Fr catheter Health SHEATH 6Fr Merit 1 [id number] 967745 117994 915920 5 Prelude Medical ([id number]) INFLATOR Merit Merit 1 AM2535 552529 210765 600436 1 5 [facility] (YB4215) CHOICE PT Extra [place] 2 [id number] 570437 496957 234484 5 Support 182cm Scientific wire ([id number]) GUIDE 6FR XBLAD Cardinal 1 [id number] 959763 927092 921932 1 0 3.5 catheter Health (12130219) Mccamey Mccamey 1 80890Q 652621 102227 257929 8 [place] IVUS Catheter (73620W) NC EUPHORA 3.0 Medtronic 1 [id number] 358924 129800 348055 0 [id number] x 20 balloon ([id number]) EUPHORA 2.0 x Medtronic 1 [id number] 870071 615254 735535 5 [id number] 10 Balloon ([id number]) EUPHORA 1.5 x Medtronic 1 [id number] 574009 657434 635581 5 [id number] 10 Balloon (CSG4432J) EXOSEAL 6Fr Cardinal 1 EX600 617195 395392 747698 1 0 (EX600) Health FEMSTOP Gold St [place] 1 H12949 757395 905491 770636 5 (J25069) Signature Audit [place] Time Signature Unsigned Intra-Procedure 02/13/2018 Oscar Iraheta 11:06:38 AM RT(R) (CV) Signatures Monitor : Oscar Iraheta RT Signature : Date : Time : [facility] [address] [place] [address]
[2018-02-13] MEDS ORDERED: DIOVAN80 MG PO (08:38)
[2018-02-13] MEDS ORDERED: TOPROL XL50 MG PO (08:39)
[2018-02-13 08:47] VITALS: BP 210/85; Ht 163.8 cm; Wt 61.4 kg
[2018-02-13 09:00] LABS: HEMATOCRIT 37.8 % (36.0-48.0); HEMOGLOBIN 12.7 g/dL (12-16); MCH 33.4 pg (26.0-34.0); MCHC 33.6 g/dL (31.0-37.0); MCV 99.5 fL (80.0-100.0); MEAN PLATELET VOLUME 10.4 fL (7.4-10.4); PLATELET COUNT 223 10x3/uL (130-400); RDW 13.5 % (11.5-14.5); WBC 7.2 10x3/uL (4.8-10.8)
[2018-02-13 09:11] LABS: CALCIUM 10.2 mg/dL (8.5-10.1); CARBON DIOXIDE 25.9 mmol/L (21.0-32.0); CREATININE - SERUM 1.2 mg/dL (0.6-1.3); POTASSIUM - SERUM 4.9 mmol/L (3.5-5.1)
[2018-02-13 09:56] LABS: LYMPHOCYTES 32 % (15-50); MONOCYTES 23 % (2-11); NEUTROPHILS 43 % (40-80)
[2018-02-13 09:57] LABS: PLATELET MORPHOLOGY GIANT PLTS PRESENT
[2018-02-13 09:58] LABS: PLATELET ESTIMATE NORMAL
== END 2018-02-13 17:15 | disposition home or self-care (01) ==
LOC: D.CATH 08:09
PROVIDERS: Internal Medicine Interventional Cardiology
DX: I25.119 Atherosclerotic heart disease of native coronary artery with unspecified angina pectoris (principal); T82.855A Stenosis of coronary artery stent, initial encounter; Z01.812 Encounter for preprocedural laboratory examination

== ENCOUNTER 2018-06-27 22:17 | Inpatient (IN) | payer MEDICARE, BC ==
[~2018-06-27] VITALS: Ht 163.8 cm; Wt 61.2 kg
--- NOTE | ~2018-06-27 | CN ---
PATIENT NAME:SANDI MONTAÑO MEDICAL RECORD: [id number] : 39 LOCATION:D. D.2111 ADMIT DATE: 06/28/18 ACCOUNT: [id number] CONSULTING PHYSICIAN: OZIEL PHOENIX MD REFERRING PHYSICIAN: ANTHONY MCCONNELL MD DATE OF CONSULTATION: 06/28/2018 CARDIOLOGY CONSULTATION DATE OF SERVICE: 06/28/2018 DIAGNOSES: 1. Cerebrovascular accident. 2. Hypertension. 3. Coronary artery disease. 4. Angina. HISTORY OF PRESENT ILLNESS: Mrs. Montaño presents with overall movement disorder being wobbly, unable to stand, that came as an acute onset yesterday. When she came in, she was quite hypertensive and she complained of chest pain. She does have a history of coronary artery disease. She as well has history of hypertension. For her hypertension, she is currently on losartan and diltiazem. She has been intolerant to beta-blockers in the past. She no longer has chest pain. Her systolic blood pressures in approximately the 150 range today. She is going to MRI now for evaluation of possible CVA. PHYSICAL EXAMINATION: GENERAL APPEARANCE: Well-nourished, well-developed, appears stated age. Level of distress, comfortable. PSYCHIATRIC: Mental status, alert, normal affect. Orientation, oriented to time, place and person. EYES: Lids and conjunctiva, noninjected. No discharge, no pallor. ENT: Lips, teeth, gums, normal dentition. Oropharynx, no cyanosis, no pallor. NECK: Carotid arteries, bilateral normal upstroke, no bruits, no thrills. JUGULAR VEINS: No jugular venous pressure or distention. CERVICAL LYMPH NODES: Nontender, nonenlarged. THYROID: Not enlarged. Nontender. No nodules. LUNGS: Respiratory effort, unlabored. CHEST: Normal curvature. No thoracic deformity. No chest wall tenderness. Percussion, resonant. Auscultation, clear. No wheezes, no rales, no rhonchi. CARDIOVASCULAR: Precordial exam, nondisplaced. No heaves or pericardial thrills. Rate and rhythm, regular. Heart sounds, normal S1, normal S2. No S3, no gallop, no rub. Systolic murmur, not heard. Diastolic murmur, not heard. EXTREMITIES: No cyanosis, no edema. Peripheral pulses, full and equal in all extremities, except as noted. No bruits appreciated. ABDOMEN: Soft, nondistended. Normal aorta. No bruit. Nontender. No masses. Liver, nontender, no hepatomegaly. Spleen, nontender, no splenomegaly. MUSCULOSKELETAL: No joint tenderness. No joint swelling. No erythema. NEUROLOGICAL: Normal gait, normal strength, normal tone. SKIN: Warm and dry. OVERALL IMPRESSION: Neurologic symptomatology. I agree with Dr. Mcconnell, this is most likely a cerebrovascular accident and not primary cardiac. She does have a history of atrial fibrillation, but telemetry has revealed nothing, but sinus rhythm. At this time, I also agree with Dr. Mcconnell, who do not want to CONSULT REPORT [id number] AUGUSTUS MONTAÑOYE MICHAEL lower the blood pressure too much extending the cerebrovascular accident. Hence, her blood pressure is good, where she is now. She is able to swallow, we can restart the diltiazem and losartan, but at this time no acute cardiac workup is necessary. TRANSINT:[id number] Voice Confirmation ID: [id number] DOCUMENT ID: [id number] OZIEL PHOENIX MD at 1031 CC: [id number] DICTATION DATE: 06/28/18 1524 AERODYNAMICIST: 06/28/182136 DIS IN 06/28/18 [address] [place] [address]
--- NOTE | ~2018-06-27 | MORECARE ---
CASE MANAGEMENT DISCHARGE SUMMARY PATIENT: SANDI MONTAÑO [place] UNIT: [id number] ADM DATE: 06/28/18 AGE: 82 : 37 SEX: F ROOM/BED: D.[facility] AUTHOR: STEFAN RICHARDSON PHYSICIAN: REFERRING PHYSICIAN: ANTHONY LÓPEZ MD DATE OF SERVICE: 07/01/18 Discharge Plan Patient Name: SANDI MONTAÑO Facility: [facility]:[place] : 1935 Planned Disposition: Acute Care Hospital Anticipated Discharge Date: 06/28/18 Discharge Date: 06/28/2018 Expected LOS: 1 Initial Reviewer: [email or web address] Initial Review Date: 07/01/2018 Generated: 07/01/18 9:53 am Patient Name: SANDI MONTAÑO Page 32854 at 0853 All edits/amendments must be made on the electronic document DICTATION DATE: 07/01/18851 MUSIC EDUCATION DIRECTOR: CHRISTA 07/01/18851 RPT#: [id number] DC DATE:06/28/18 STATUS: DIS IN [facility] [address] [place] [address] END OF REPORT
[~2018-06-27 22:17] MED LIST changes: +DIOVAN80 MG PO
[2018-06-27 22:31] VITALS: BP 188/99
[2018-06-27] MEDS ORDERED: CARTIA XT120 MG PO (22:33)
[2018-06-27] MEDS ORDERED: COZAAR100 MG PO (22:34)
[2018-06-27 23:00] VITALS: BP 171/77
[2018-06-27 23:30] VITALS: BP 193/91
[2018-06-28] VITALS (16 sets, daily range): BP systolic 154–207; BP diastolic 66–143; Ht 163.8 cm; Wt 61.2 kg
[2018-06-28 00:32] LABS: BASOPHILS 0.1 % (0-2); EOSINOPHILS 0.2 % (0-7); HEMATOCRIT 36.4 % (36.0-48.0); HEMOGLOBIN 12.1 g/dL (12-16); IMMATURE GRANULOCYTES 0.6 % (0-5); LYMPHOCYTES 19.5 % (15-50); MCH 33.2 pg (26.0-34.0); MCHC 33.2 g/dL (31.0-37.0); MCV 99.7 fL (80.0-100.0); MEAN PLATELET VOLUME 9.9 fL (7.4-10.4); MONOCYTES 17.7 % (2-11); NEUTROPHILS 61.9 % (40-80); PLATELET COUNT 197 10x3/uL (130-400); RBC 3.65 10x6/uL (4.00-5.40); RDW 14.3 % (11.5-14.5); WBC 12.4 10x3/uL (4.8-10.8)
[2018-06-28 00:42] LABS: APTT 25.1 SECONDS (22.8-39.4); INR 1.08 (0.85-1.17); PROTIME 13.6 SECONDS (11.6-15.0)
[2018-06-28 00:46] LABS: ALBUMIN 3.3 g/dL (3.4-5.0); ALKALINE PHOSPHATASE 73 U/L (46-116); ALT (SGPT) 40 U/L (10-68); CALC OSMOLALITY 272 mosm/kg (275-300); CARBON DIOXIDE 22.8 mmol/L (21.0-32.0); CHLORIDE - SERUM 102 mmol/L (98-107); CREATININE - SERUM 1.1 mg/dL (0.6-1.3); GLUCOSE 187 mg/dL (74-106); POTASSIUM - SERUM 5.2 mmol/L (3.5-5.1); PROTEIN - SERUM 7.8 g/dL (6.4-8.2); SODIUM 133 mmol/L (136-145); UREA NITROGEN 19 mg/dL (7-18); eGFR NON AFRICAN AMERICAN 51 mL/min (90-120)
[2018-06-28 01:00] LABS: CKMB 1.2 U/L (0.0-3.6); CREATINE KINASE 37 UL (21-215); MAGNESIUM - SERUM 1.9 mg/dL (1.8-2.4); TROPONIN-I < 0.017 ng/mL (0.000-0.060)
== END 2018-06-28 21:07 | disposition short-term general hospital (02) | DRG 65 ==
LOC: D.ER 22:17 → D.EDHOLD 06-28 03:12 → D.M2 06-28 03:12
PROVIDERS: Family Medicine
DX: I63.9 Cerebral infarction, unspecified (principal); E87.1 Hypo-osmolality and hyponatremia; J81.1 Chronic pulmonary edema; I16.0 Hypertensive urgency; I48.91 Unspecified atrial fibrillation; I44.7 Left bundle-branch block, unspecified; E87.5 Hyperkalemia; I25.119 Atherosclerotic heart disease of native coronary artery with unspecified angina pectoris; I10 Essential (primary) hypertension; D64.9 Anemia, unspecified

== ENCOUNTER 2018-08-23 16:06 | Inpatient (IN) | payer MEDICARE, BC ==
[~2018-08-23] VITALS: Ht 163.8 cm; Wt 59.2 kg
[~2018-08-23 16:06] MED LIST changes: +CARTIA XT120 MG PO; +CENTRUM SILVER VIT PO; +COZAAR100 MG PO; -[UNRECOGNIZED DRUG - OTHER] PO
[2018-08-23 17:16] LABS: BASOPHILS 0.1 % (0-2); EOSINOPHILS 0.3 % (0-7); HEMATOCRIT 29.9 % (36.0-48.0); HEMOGLOBIN 9.4 g/dL (12-16); IMMATURE GRANULOCYTES 0.3 % (0-5); LYMPHOCYTES 25.2 % (15-50); MCH 33.5 pg (26.0-34.0); MCHC 31.4 g/dL (31.0-37.0); MCV 106.4 fL (80.0-100.0); MEAN PLATELET VOLUME 10.9 fL (7.4-10.4); MONOCYTES 14.8 % (2-11); NEUTROPHILS 59.3 % (40-80); RBC 2.81 10x6/uL (4.00-5.40); RDW 19.7 % (11.5-14.5); WBC 7.7 10x3/uL (4.8-10.8)
[2018-08-23 17:32] LABS: ALBUMIN 1.9 g/dL (3.4-5.0); ANION GAP 9.1 mmol/L (8-16); BILIRUBIN - TOTAL 0.73 mg/dL (0.2-1.3); CALCIUM 9.2 mg/dL (8.5-10.1); CARBON DIOXIDE 29.3 mmol/L (21.0-32.0); CREATININE - SERUM 0.9 mg/dL (0.6-1.3); POTASSIUM - SERUM 4.4 mmol/L (3.5-5.1)
[2018-08-23 17:36] LABS: PLATELET COUNT 253 10x3/uL (130-400)
[2018-08-23 17:40] LABS: TROPONIN-I 0.033 ng/mL (0.000-0.060)
--- NOTE | 2018-08-23 19:14 | MORECARE ---
CASE MANAGEMENT DISCHARGE SUMMARY PATIENT: SANDI MONTAÑO [place] UNIT: [id number] ADM DATE: 08/23/18 AGE: 82 : 37 SEX: F ROOM/BED: D.2138 AUTHOR: STEFAN RICHARDSON PHYSICIAN: REFERRING PHYSICIAN: ANTHONY LÓPEZ MD DATE OF SERVICE: 08/23/18 Discharge Plan Patient Name: SANDI MONTAÑO Facility: [facility]:[place] : 1935 Planned Disposition: Nursing Facility [facility] Anticipated Discharge Date: 08/26/18 Discharge Date: Expected LOS: 3 Initial Reviewer: [email or web address] Initial Review Date: 08/23/2018 Generated: 08/23/18 8:14 pm Patient Name: SANDI MONTAÑO Page 79701 at 1914 All edits/amendments must be made on the electronic document DICTATION DATE: 08/23/181913 DIRECTOR SUPPLIER QUALITY: CHRISTA 08/23/181913 RPT#: [id number] DC DATE: STATUS: ADM IN [facility] [address] [place] [address] END OF REPORT
--- NOTE | 2018-08-23 19:40 | NUR ---
PT TO ROOM VIA BED ACCOMPANIED BY HOSPITAL STAFF AND DAUGHTER. PT A/O TO SITUATION. DENIES ANY PAIN OR DISCOMFORT. FOUND PT LINENS SOAKED WITH URINE AND BOTTOM RED. CHANGED LINENS AND APPLIED BARRIER CREAM TO KEY AREA. EDUCATED PT TO PRESS CALL LIGHT WHEN NEEDING TO GET UP OOB TO BSC. PT VERBALIZED UNDERSTANDING. FALL PRECAUTIONS IN USE. WILL CONTINUE TO OBSERVE AND FOLLOW POC. SR UP X2, CL IN REACH, BED ALARM ON AND FUNCTIONING PROPERLY.
--- NOTE | 2018-08-23 19:52 | MORECARE ---
CASE MANAGEMENT DISCHARGE SUMMARY PATIENT: SANDI MONTAÑO [place] UNIT: [id number] ADM DATE: 08/23/18 AGE: 82 : 37 SEX: F ROOM/BED: D.5985 AUTHOR: STEFAN RICHARDSON PHYSICIAN: REFERRING PHYSICIAN: ANTHONY LÓPEZ MD DATE OF SERVICE: 08/23/18 Discharge Plan Patient Name: SANDI MONTAÑO Facility: [facility]:[place] : 1935 Planned Disposition: Nursing Facility IMELDA Cert Anticipated Discharge Date: 08/26/18 Discharge Date: Expected LOS: 3 Initial Reviewer: [email or web address] Initial Review Date: 08/23/2018 Generated: 08/23/18 8:52 pm DCPIA - Discharge Planning Initial Assessment Updated by [email or web address]: Sushila Garrido on 08/23/18 7:46 pm * Is the patient Alert and Oriented? No * How many steps to enter\exit or inside your home? None * PCP Dr. Pablo * [facility] * Preadmission Environment Residential Facility * Facility Name [facility] * ADLs Partial Dependent * Partial ADLs (Assistance needed) Ambulation Bathing Dressing Medication Management Transfers * Equipment None * Other Equipment Does not have any equipment at home. Was independent 8 weeks ago prior to CVA. * List name and contact numbers for known caregivers / representatives who currently or will assist patient after discharge: Melinda Almeida - daughter - [phone] Kenneth aLuartur - [facility] other - [phone] * Community resources currently utilized Other * Please name any agencies selected above. [facility] - family taking patient's belongings and a new referral will have to be submitted for patient to return. * Additional services required to return to the preadmission environment? Yes * Can the patient safely return to the preadmission environment? Yes * Has this patient been hospitalized within the prior 30 days at any hospital? Yes Last DP export: 08/23/18 6:14 pm Patient Name: SANDI MONTAÑO Page [id number] at 1952 All edits/amendments must be made on the electronic document DICTATION DATE: 08/23/181950 CORNER TRIMMER OPERATOR: DM 08/23/181950 RPT#: [id number] DC DATE: STATUS: ADM IN [facility] [address] [place] [address] END OF REPORT
[2018-08-23 22:13] VITALS: BP 153/69
[2018-08-23 22:27] VITALS: BP 153/69; BMI 22.0
[2018-08-24] VITALS: BP 152/67
[2018-08-24 04:00] VITALS: BP 137/53
[2018-08-24 07:00] VITALS: BP 150/70
--- NOTE | 2018-08-24 07:52 | NUR ---
PT ASLEEP, DID NOT WAKE I ENTERED, DID NOT FURTHER DISTURB AT THIS TIME. CL IN REACH.
--- NOTE | 2018-08-24 09:16 | NUR ---
PT SEEMS PLESANTLY CONFUSED, I THINK SHE HAS HEARING DIFFICULTIES.
--- NOTE | 2018-08-24 10:32 | NUR ---
RESTS IN BED WITH EYES CLOSED. CALL LIGHT IN REACH. WILL CONT. PLAN OF CARE.
--- NOTE | 2018-08-24 10:48 | MORECARE ---
CASE MANAGEMENT DISCHARGE SUMMARY PATIENT: SANDI MONTAÑO [place] UNIT: [id number] ADM DATE: 08/23/18 AGE: 82 : 37 SEX: F ROOM/BED: D.4622 AUTHOR: DYLANDOC PHYSICIAN: REFERRING PHYSICIAN: ANTHONY LÓPEZ MD DATE OF SERVICE: 08/24/18 Discharge Plan Patient Name: SANDI MONTAÑO Facility: [facility]:[place] : 1935 Planned Disposition: Nursing Facility IMELDA Cert Anticipated Discharge Date: 08/26/18 Discharge Date: Expected LOS: 3 Initial Reviewer: [email or web address] Initial Review Date: 08/23/2018 Generated: 08/24/18 11:48 am Comments DCP- Discharge Planning Updated by [email or web address]: Sushila Garrido on 08/24/18 9:[address] Patient Name: SANDI MONTAÑO Admission Status: ER Accout number: [id number] Admission Date: 08-23-2018 : 1935 Admission Diagnosis: Attending: ANTHONY LÓPEZ Current LOS: 1 Anticipated DC Date: 08-26-2018 Planned Disposition: Nursing Facility IMELDA Cert Primary Insurance: MEDICARE A & B Discharge Planning Comments: CM met with patient and her daughter to complete initial dc planning assessment. CM educated patient on the CM role and verbal consent given by patient to complete assessment. Patient lives at home with her significant other. Prior to admission patient was at [facility]. Patient had a CVA approx 8 weeks ago and has has pneumonia multiple times since CVA resulting in readmission from rehabs to acute hospital. CM asked if patient had an ST Eval since the stroke and the daughter stated yes and after the last eval they changed her diet to [place] thick puree diet. Discussed this information with Dr. Zhao and orders received to change diet as above, PT eval, OT eval, ST eval with swallow study. At discharge patient plans to return to [facility]. Prior to her CVA patient was independent and did not use any assistive devices for ambulation. CM will continue to follow and will assist as needed with dc plans/needs. Sewer Pipe Press Operator: Sushila Garrido RN, [facility] DCPIA - Discharge Planning Initial Assessment Updated by [email or web address]: Sushila Garrido on 08/23/18 7:46 pm * Is the patient Alert and Oriented? No * How many steps to enter\exit or inside your home? None * PCP Dr. Pablo * Pharmacy [facility] on [address] * Preadmission Environment Care Home Facility * Facility Name [facility] * ADLs Partial Dependent * Partial ADLs (Assistance needed) Ambulation Bathing Dressing Medication Management Transfers * Equipment None * Other Equipment Does not have any equipment at home. Was independent 8 weeks ago prior to CVA. * List name and contact numbers for known caregivers / representatives who currently or will assist patient after discharge: Melinda Almeida - daughter - [phone] Kenneth Almeida - sig other - [phone] * Community resources currently utilized Other * Please name any agencies selected above. [facility] - family taking patient's belongings and a new referral will have to be submitted for patient to return. * Additional services required to return to the preadmission environment? Yes * Can the patient safely return to the preadmission environment? Yes * Has this patient been hospitalized within the prior 30 days at any hospital? Yes Last DP export: 08/23/18 6:52 pm Patient Name: SANDI MONTAÑO Page 19799 at 1048 All edits/amendments must be made on the electronic document DICTATION DATE: 08/24/181047 FIELD ADMINISTRATOR: CHRISTA 08/24/181047 RPT#: [id number] DC DATE: STATUS: ADM IN [facility] [address] [place] [address] END OF REPORT
[2018-08-24 11:00] VITALS: BP 137/70
[2018-08-24 11:57] VITALS: BMI 21.9
[2018-08-24 15:00] VITALS: BP 130/77
[2018-08-24 15:41] LABS: MAGNESIUM - SERUM 2.2 mg/dL (1.8-2.4); THYROID STIMULATING HORMONE 21.01 uIU/mL (0.36-3.74)
[2018-08-24 15:57] LABS: % SATURATION 19 % (15-55); IRON 68 ug/dl (35-150); TOTAL IRON BIND CAPACITY 355 ug/dl (260-445); UNSAT IRON BIND CAPACITY 287 ug/dl (150-375)
--- NOTE | 2018-08-24 20:21 | NUR ---
INITIAL ROUNDS COMPLETED AT 1915 HRS. PT RESTING WITH EYES CLOSED. RESP EVEN AND REGULAR. ASSESSMENT COMPLETED AT 1935 HRS. VSS. O2 4LNC. SR WITH BBB PER CM HR 68. PT ALERT AND ORIENTED. PT KONG[place]K. BRUISES NOTED TO BILAT ARMS. SMALL RED SPOT NOTED TO TOP OF R FOOT BY ANKLE. PEG TUBE TO L ABD CLAMPED. R SIDED WEAKNESS NOTED. IV TO LFA SL. PT DENIED ANY DISCOMFORT. SR UP X2, CALL LIGHT WITHIN REACH AND BED ALARM ON.
[2018-08-24 20:25] VITALS: BP 103/41
--- NOTE | 2018-08-24 23:01 | NUR ---
PM MEDS GIVEN WITH PT IN HIGH PALOMINO'S AND JUICE TO NECTAR CONSISTANCY. PT SWALLOWED WITHOUT DIFFICULTY. ASSISTED TO BSC AFTER MED TAKEN. LARGE AMOUNT OF URINE AND STOOL NOTED. ASSISTED BACK TO BED AND REPOSITIONED IN BED FOR COMFORT. PT CURRENTLY RESTING WITH EYES CLOSED. RESP EVEN AND REGULAR. SR UP X2, CALL LIGHT WITHIN REACH, BED ALARM ON AND DOOR OPEN.
--- NOTE | 2018-08-25 00:10 | NUR ---
PT AWAKE; DENIES ANY DISCOMFORT. CALL LIGHT WITHIN REACH AND BED ALARM ON.
[2018-08-25 00:30] VITALS: BP 113/44
--- NOTE | 2018-08-25 02:00 | NUR ---
PT RESTING WITH EYES CLOSED. RESP EVEN AND REGULAR. SR UP X2, CALL LIGHT WITHIN REACH.
--- NOTE | 2018-08-25 04:19 | NUR ---
PT UP TO BSC. BM NOTED. BED WET. BED LINENS CHANGED. SAMPLE NOT COLLECTED. CALL LIGHT WITHIN REACH.
[2018-08-25 04:45] VITALS: BP 115/51
--- NOTE | 2018-08-25 06:30 | NUR ---
VSS THROUGHOUT NIGHT. SR WITH BB PER CM. PT DENIED ANY DISCOMFORT. NEEDS MET; WILL CONTINUE TO MONITOR.
[2018-08-25 07:29] LABS: HEMATOCRIT 24.7 % (36.0-48.0); HEMOGLOBIN 7.6 g/dL (12-16); MCH 33.2 pg (26.0-34.0); MCHC 30.8 g/dL (31.0-37.0); MCV 107.9 fL (80.0-100.0); PLATELET COUNT 223 10x3/uL (130-400); RBC 2.29 10x6/uL (4.00-5.40); RDW 20.2 % (11.5-14.5)
--- NOTE | 2018-08-25 07:40 | NUR ---
PT RECEIVING BREATHING TX. HELPED ADJUST HER IN BED, RAISING HER UP. SHE IS VERY SWEET, NO CONCNERS/COMPLAINTS. NO FAMILY IN ROOM AT THIS TIME. CL IN REACH.
[2018-08-25 07:46] LABS: ANION GAP 8.8 mmol/L (8-16); CALCIUM 9.3 mg/dL (8.5-10.1); CARBON DIOXIDE 28.4 mmol/L (21.0-32.0)
[2018-08-25 07:47] LABS: POTASSIUM - SERUM 3.2 mmol/L (3.5-5.1)
[2018-08-25 07:57] LABS: ANISOCYTOSIS 1+; LYMPHOCYTES 32 % (15-50); MONOCYTES 16 % (2-11); NEUTROPHILS 49 % (40-80); PLATELET ESTIMATE NORMAL; POIKILOCYTOSIS 1+
[2018-08-25 08:25] VITALS: BP 121/68
[2018-08-25 09:45] LABS: APPEARANCE CLEAR (CLEAR); BILIRUBIN NEGATIVE (NEGATIVE); COLOR STRAW (YELLOW); GLUCOSE NEGATIVE (NEGATIVE); KETONE NEGATIVE (NEGATIVE); NITRITE POSITIVE (NEGATIVE); PROTEIN NEGATIVE (NEGATIVE); UROBILINOGEN NORMAL (NORMAL)
[2018-08-25 09:46] LABS: BACTERIA FEW /hpf (NONE SEEN); EPITHELIAL CELLS 0-5 /hpf (0-5); RED CELLS - URINE 0-5 /hpf (0-5); WHITE CELLS - URINE 0-5 /hpf (0-5); YEAST <1+ /hpf (NONE SEEN)
[2018-08-25 11:32] VITALS: BP 128/66
--- NOTE | 2018-08-25 11:35 | NUR ---
RESP UL ON . CALL LIGHT IN REACH. WILL CONT. PLAN OF CARE.
[2018-08-25 15:54] VITALS: BP 101/64
--- NOTE | 2018-08-25 16:00 | NUR ---
STARTED BLOOD. NO REACTION AT 15 MIN
--- NOTE | 2018-08-25 18:08 | NUR ---
NO BLOOD REACTION AT THIS TIME. IN ROOM. HELD LASIX D/T BLOOD TRANFUSION. WILL ADMIN ON VISE HAND POST TRANSFUSION
[2018-08-25 21:20] VITALS: BP 108/60
--- NOTE | 2018-08-26 00:03 | NUR ---
INITIAL ROUNDS COMPELTD AT 1920 HRS. PRBC'S INFUSING. PRBC'S INFUSED AT 1930 HRS. IV THEN SL. ASSISTED PT TO BR. VOIED 550 CC OF YELLOW URINE. PT ALSO URINATED SOME ON THE FLOOR AND THE BED. FLOOR CLEAN, BED LINENS CHANGED. ASSISTED BACK TO BED. ASSESSMENT COMPLETED AT 2030 HRS. VSS. SR PER CM HR 69. O2 4LNC. LUNGS DIMINISHED IN BASES BILAT. IV TO LFA SL. BRUISES NOTED TO BILAT ARMS. SMALL RED SPOT NOTED TO TOP OF R FOOT. PEG TUBE TO ABD CLAMPED. PM MEDS GIVEN WITH PT IN HIGH FOWLERS AND WITH NECTAR THICK LIQUIDS. PT SWALLOWED MED WELL. FLAGYL HELD PT ALLERGIC. PT CURRENTLY RESTING WITH EYES CLOSED. RESP EVEN AND REGULAR. SR UP X2, CALL LIGHT WITHIN REACH AND BED ALARM ON.
[2018-08-26 00:57] VITALS: BP 118/74
--- NOTE | 2018-08-26 01:52 | NUR ---
PT RESTING WITH EYES CLOSED. RESP EVEN AND REGULAR. SR UP X2, CALL LIGHT WITHIN REACH AND BED ALARM ON.
--- NOTE | 2018-08-26 04:48 | NUR ---
NECTAR THICK WATER GIVEN PER REQUEST. PT DENIES ANY WANTS OR NEEDS AT THIS TIME. SR UP X2, CALL LIGHT WITHIN REACH AND BED ALARM ON.
[2018-08-26 05:53] VITALS: BP 115/52
[2018-08-26 05:58] LABS: HEMATOCRIT 26.4 % (36.0-48.0); HEMOGLOBIN 8.4 g/dL (12-16); MCH 32.4 pg (26.0-34.0); MCHC 31.8 g/dL (31.0-37.0); PLATELET COUNT 188 10x3/uL (130-400); RBC 2.59 10x6/uL (4.00-5.40); RDW 22.6 % (11.5-14.5); WBC 5.9 10x3/uL (4.8-10.8)
[2018-08-26 06:25] LABS: CARBON DIOXIDE 28.4 mmol/L (21.0-32.0); POTASSIUM - SERUM 3.4 mmol/L (3.5-5.1)
[2018-08-26 06:38] LABS: MCV 101.9 fL (80.0-100.0)
--- NOTE | 2018-08-26 07:19 | NUR ---
PT STATED SHE NEEDED TO USE THE BSC AT 0620. WITH HANDS ON ASSIST TO A STANDING POSITION PT BEGAN URINATING ON THE FLOOR, SLIPPED AND FELL BACKWARDS ONTO HER BUTTOCKS. PT ASSISTED TO STANDING POSITION AND PLACED ON BSC. SKIN TEAR TO RFA NOTED 10CM IN LENGHT. WOUND CLEANED WITH WOUND REPORTER ANCHOR, COVERED WITH NON ADHERENT PADS AND WRAPPED IN CHRISS. NO OTHER INJURIES NOTED. PT DENIED ANY OTHER PAIN. FLOOR CLEANED AND NEW BED LINENS PLACED. PT ASSISTED BACK TO BED. DR LÓPEZ NOTIFIED AT 0645 HRS. DAUGHTER GÓMEZ NOTIFIED AT 0720 HRS. PT CURRENTLY WATCHING TV. SR UP X2, CALL LIGHT WITHIN REACH AND BED ALARM ON.
--- NOTE | 2018-08-26 07:40 | NUR ---
REPORT RECEIVED. WILL CONTINUE WITH POC. PT CURRENTLY LYING SEMI FOWLERS. CALL LIGHT W/I REACH. FALL PRECAUTIONS IN PLACE. BED ALARM TURNED ON AND FUNCTIONING PROPERLY. SIDE RAIL UPX2. BED IN LOWEST POSITION. RR EVEN AND UNLABORED ON 4L 02. L.FOR PIV IS SALINE LOCKED. PT DENIES ANY NEEDS AT THIS TIME. WILL CTM.
[2018-08-26 08:06] LABS: EOSINOPHILS 1 % (0-7); LYMPHOCYTES 29 % (15-50); MONOCYTES 15 % (2-11); NEUTROPHILS 54 % (40-80)
[2018-08-26 08:07] LABS: ANISOCYTOSIS 1+; PLATELET ESTIMATE NORMAL; POLYCHROMASIA OCC
[2018-08-26 09:20] VITALS: BP 124/46
--- NOTE | 2018-08-26 11:27 | NUR ---
RESTING QUIETLY NAD NOTED
--- NOTE | 2018-08-26 13:06 | NUR ---
ATTEMPTED TO ININITATE PIV IN R.UPPER ARM BUT WAS UNSUCCESSFUL. ALEM CEDILLO RN ALSO EXAMINED PT FOR PIV ACCESS BUT WAS UNSUCCESSFUL. CONSULTED TEODORA VASCULAR ACCESS FOR PIV. WILL CTM.
--- NOTE | 2018-08-26 13:08 | NUR ---
PREVIOUS PIV REMOVED WITH CATHETER TIP FULLY INTACT.
--- NOTE | 2018-08-26 18:14 | NUR ---
OT NOTE: PT COMPLETED SITTING BALANCE WITH MIN A. PT COMPLETED BUE AROM EXS. PT COMPLETED SIMPLE HYGIENE TASK WITH MIN A. THANK YOU, DALE JORDAN
--- NOTE | 2018-08-26 19:15 | NUR ---
ASSISTED UP TO BSC BUT STILL COMPLETE BED CHANGE. BACK TO BED BED LOW SRX2 CALL LIGHT IN REACH SOCKS IN PLACE LCTA O2 IS AT 4LNC NO RESP DISTRESS WHILE IN BED SKIN WARM AND DRY NOTED peg WITH CLEAN DRSG IN PLACE IV TO LEFT WRIST AT KVO , NO EDEMA NO PAIN.
--- NOTE | 2018-08-26 20:31 | NUR ---
PT SHOWS ALLERGIC TO FLAGYL...REPORT GIVEN THAT WE ARE HOLDING FLAGYL AND REASSESSING TOMORROW.. PLAN TO HOLD 3AM DOSE
[2018-08-26 20:56] VITALS: BP 117/49
--- NOTE | 2018-08-26 23:27 | NUR ---
PLUG CUTTER AT BEDSIDE TO OBTAIN VITALS, CALL LIGHT IN REACH. WILL CONTINUE WITH PLAN OF CARE.
--- NOTE | 2018-08-27 00:42 | NUR ---
BED LOW SRX2 CALL LIGHT IN REACH AT REST WITH EYES CLOSED
[2018-08-27 02:02] VITALS: BP 125/47
[2018-08-27 06:09] VITALS: BP 127/55
--- NOTE | 2018-08-27 06:25 | NUR ---
REPORTED BY LAB THAT SHE REFUSED LAB DRAW
--- NOTE | 2018-08-27 07:41 | NUR ---
REPORT RECEIVED. WILL CONTINUE WITH POC. PT CURRENTLY LYING SEMI FOWLERS. CALL LIGHT W/I REACH. PT IS AAO AND UP WITH ASSIST. FALL PRECAUTIONS IN PLACE. RR EVEN AND UNLABORED ON 4L 02. NS INFUSING @KVO VIA L.WRIST PIV. PT DENIES ANY NEEDS AT THIS TIME. WILL CTM.
[2018-08-27 08:22] LABS: FOLATE (FOLIC ACID) - SERUM >20.0 ng/mL (>3.0)
[2018-08-27 09:34] VITALS: BP 175/58
--- NOTE | 2018-08-27 11:05 | NUR ---
RESTING QUIETLY NAD NOTED
[2018-08-27 11:24] LABS: HEMATOCRIT 27.9 % (36.0-48.0); HEMOGLOBIN 8.9 g/dL (12-16); MCH 32.7 pg (26.0-34.0); MCHC 31.9 g/dL (31.0-37.0); MCV 102.6 fL (80.0-100.0); MEAN PLATELET VOLUME 9.8 fL (7.4-10.4); PLATELET COUNT 194 10x3/uL (130-400); RBC 2.72 10x6/uL (4.00-5.40); RDW 22.1 % (11.5-14.5)
[2018-08-27 11:32] LABS: ANION GAP 9.6 mmol/L (8-16); CALCIUM 8.8 mg/dL (8.5-10.1); CARBON DIOXIDE 26.6 mmol/L (21.0-32.0); CREATININE - SERUM 1.1 mg/dL (0.6-1.3); POTASSIUM - SERUM 3.2 mmol/L (3.5-5.1)
[2018-08-27 12:03] LABS: LYMPHOCYTES 22 % (15-50); MONOCYTES 12 % (2-11); NEUTROPHILS 61 % (40-80); PLATELET ESTIMATE NORMAL
--- NOTE | 2018-08-27 12:41 | MORECARE ---
CASE MANAGEMENT DISCHARGE SUMMARY PATIENT: SANDI MONTAÑO [place] UNIT: [id number] ADM DATE: 08/23/18 AGE: 82 : 37 SEX: F ROOM/BED: D.1852 AUTHOR: DYLANDOC PHYSICIAN: REFERRING PHYSICIAN: ANTHONY LÓPEZ MD DATE OF SERVICE: 08/27/18 Discharge Plan Patient Name: SANDI MONTAÑO Facility: [facility]:[place] : 1935 Planned Disposition: Nursing Facility IMELDA Cert Anticipated Discharge Date: 08/26/18 Discharge Date: Expected LOS: 3 Initial Reviewer: [email or web address] Initial Review Date: 08/23/2018 Generated: 08/27/18 1:41 pm Comments DCP- Discharge Planning Updated by [email or web address]: Sushila Garrido on 08/24/18 9:[address] Patient Name: SANDI MONTAÑO Admission Status: ER Accout number: [id number] Admission Date: 08-23-2018 : 1935 Admission Diagnosis: Attending: ANTHONY LÓPEZ Current LOS: 1 Anticipated DC Date: 08-26-2018 Planned Disposition: Nursing Facility IMELDA Cert Primary Insurance: MEDICARE A & B Discharge Planning Comments: CM met with patient and her daughter to complete initial dc planning assessment. CM educated patient on the CM role and verbal consent given by patient to complete assessment. Patient lives at home with her significant other. Prior to admission patient was at [facility]. Patient had a CVA approx 8 weeks ago and has has pneumonia multiple times since CVA resulting in readmission from rehabs to acute hospital. CM asked if patient had an ST Eval since the stroke and the daughter stated yes and after the last eval they changed her diet to [place] thick puree diet. Discussed this information with Dr. Zhao and orders received to change diet as above, PT eval, OT eval, ST eval with swallow study. At discharge patient plans to return to [facility]. Prior to her CVA patient was independent and did not use any assistive devices for ambulation. CM will continue to follow and will assist as needed with dc plans/needs. Room Service Attendant: Sushila Garrido RN, [facility] DCPIA - Discharge Planning Initial Assessment Updated by [email or web address]: Sushila Garrido on 08/23/18 7:46 pm * Is the patient Alert and Oriented? No * How many steps to enter\exit or inside your home? None * PCP Dr. Pablo * Pharmacy [facility] on [address] * Preadmission Environment Mcfp Facility * Facility Name [facility] * ADLs Partial Dependent * Partial ADLs (Assistance needed) Ambulation Bathing Dressing Medication Management Transfers * Equipment None * Other Equipment Does not have any equipment at home. Was independent 8 weeks ago prior to CVA. * List name and contact numbers for known caregivers / representatives who currently or will assist patient after discharge: Melinda Almeida - daughter - [phone] Kenneth Almeida - sig other - [phone] * Community resources currently utilized Other * Please name any agencies selected above. [facility] - family taking patient's belongings and a new referral will have to be submitted for patient to return. * Additional services required to return to the preadmission environment? Yes * Can the patient safely return to the preadmission environment? Yes * Has this patient been hospitalized within the prior 30 days at any hospital? Yes External Providers [facility] Next Contact Date: 08/28/2018 Service Request Date: Service Type: Resolution: Reviewer: Comments: Last DP export: 08/24/18 9:48 am Patient Name: SANDI MONTAÑO Page [id number] at 1241 All edits/amendments must be made on the electronic document DICTATION DATE: 08/27/18 1240 MANAGER ROOM: CHRISTA 08/27/18 1240 RPT#: [id number] DC DATE: STATUS: ADM IN [facility] [address] [place] [address] END OF REPORT
--- NOTE | 2018-08-27 12:54 | MORECARE ---
CASE MANAGEMENT DISCHARGE SUMMARY PATIENT: SANDI MONTAÑO [place] UNIT: [id number] ADM DATE: 08/23/18 AGE: 82 : 37 SEX: F ROOM/BED: D.8024 AUTHOR: DYLANDOC PHYSICIAN: REFERRING PHYSICIAN: ANTHONY LÓPEZ MD DATE OF SERVICE: 08/27/18 Discharge Plan Patient Name: SANDI MONTAÑO Facility: [facility]:[place] : 1935 Planned Disposition: Nursing Facility IMELDA Cert Anticipated Discharge Date: 08/26/18 Discharge Date: Expected LOS: 3 Initial Reviewer: [id number] Initial Review Date: 08/23/2018 Generated: 08/27/18 1:54 pm Comments DCP- Discharge Planning Updated by [email or web address]: Junior Albarran on 08/27/18 11:[address] Patient Name: SANDI MONTAÑO Encounter No: [id number] : 1935 Primary Insurance: MEDICARE A & B Anticipated DC Date: 08-26-2018 Planned Disposition: Nursing Facility [facility] Cert External Planned Provider: [facility], MEDICARE REHAB BED DCP follow-up note: CM REVIEWED CHART, FAXED REHAB REFERRAL TO [facility] AT [phone]. CM WAITING ADMISSION DETERMINATION FROM [facility]. DOT [facility] DCP- Discharge Planning Updated by [email or web address]: Junior Albarran on 08/27/18 11:[address] Patient Name: SANDI MONTAÑO Admission Status: ER Accout number: [id number] Admission Date: 08-23-2018 : 1935 Admission Diagnosis: Attending: ANTHONY LÓPEZ Current LOS: 1 Anticipated DC Date: 08-26-2018 Planned Disposition: Nursing Facility [facility] Cert Primary Insurance: MEDICARE A & B Discharge Planning Comments: CM met with patient and her daughter to complete initial dc planning assessment. CM educated patient on the CM role and verbal consent given by patient to complete assessment. Patient lives at home with her significant other. Prior to admission patient was at [facility]. Patient had a CVA approx 8 weeks ago and has has pneumonia multiple times since CVA resulting in readmission from rehabs to acute hospital. CM asked if patient had an ST Eval since the stroke and the daughter stated yes and after the last eval they changed her diet to [place] thick puree diet. Discussed this information with Dr. Zhao and orders received to change diet as above, PT eval, OT eval, ST eval with swallow study. At discharge patient plans to return to [facility]. Prior to her CVA patient was independent and did not use any assistive devices for ambulation. CM will continue to follow and will assist as needed with dc plans/needs. Program Counselor: Susihla Garrido RN, [facility] DCPIA - Discharge Planning Initial Assessment Updated by [email or web address]: Sushila Garrido on 08/23/18 7:46 pm * Is the patient Alert and Oriented? No * How many steps to enter\exit or inside your home? None * PCP Dr. Pablo * Pharmacy [facility] on [address] * Preadmission Environment [facility] Facility * Facility Name [facility] * ADLs Partial Dependent * Partial ADLs (Assistance needed) Ambulation Bathing Dressing Medication Management Transfers * Equipment None * Other Equipment Does not have any equipment at home. Was independent 8 weeks ago prior to CVA. * List name and contact numbers for known caregivers / representatives who currently or will assist patient after discharge: Melinda Almeida - daughter - [phone] Kenneth Almeida - sig other - [phone] * Community resources currently utilized Other * Please name any agencies selected above. [facility] - family taking patient's belongings and a new referral will have to be submitted for patient to return. * Additional services required to return to the preadmission environment? Yes * Can the patient safely return to the preadmission environment? Yes * Has this patient been hospitalized within the prior 30 days at any hospital? Yes Last DP export: 08/27/18 11:41 am Patient Name: SANDI MONTAÑO Page 22455 at 1254 All edits/amendments must be made on the electronic document DICTATION DATE: 08/27/18 1254 ICT DEVELOPMENT MANAGER: CHRISTA 08/27/18 1254 RPT#: [id number] DC DATE: STATUS: ADM IN [facility] [address] [place] [address] END OF REPORT
[2018-08-27 13:11] VITALS: BP 120/45
--- NOTE | 2018-08-27 16:34 | NUR ---
OT NOTE: ABLE TO PERFORM BED MOB WITH MIN ASSIST; AMB TO BATHROOM WITH ENVIRONMENTAL ENGINEERING ASSISTANT; TOILETING WITH MIN ASSIST FOR HYGIENE AND CLOTHING MGMT. ALSO ABLE TO AMB APPROX 20 FT WITH RW; VERY FATIGUED AND SOB UPON RETURNING TO BED. LILLI WALLACE,OTR/L
[2018-08-27 17:38] VITALS: BP 111/48
--- NOTE | 2018-08-27 18:17 | NUR ---
PT CURRENTLY LYING SEMI FOWLERS. CALL LIGHT W/I REACH. SON AT BEDSIDE. NS INFUSING @KVO VIA L.WRIST PIV. RR EVEN AND UNLABORED ON 4L 02. PT HAS NONPRODUCTIVE FREQUENT COUGH. PT DENIES ANY NEEDS AT THIS TIME. WILL PASS REPORT AND CONTINUE WITH POC.
--- NOTE | 2018-08-27 19:25 | NUR ---
REPOSITIONED IN BED HOB UP SRX2 BED LOW AND CALL LIGHT IS IN REACH...SKIN WARM AND DRY LCTA IV TO L WRIST NO EDEMA NO REDNESS...ENCOURAGED TO EXCEPT BLOOD DRAWS. FAMILY OF PATIENT AND PT CONFIRMED THAT THEY WANT PEG TUBE REMOVED...ALSO REQUESTING THAT POTASSIUM BE GIVEN DAILY AND TO DROP THE ELECTROLYTE PROTOCAL.
[2018-08-27 20:40] VITALS: BP 115/45
--- NOTE | 2018-08-27 21:22 | NUR ---
DRSG CHANGE PERFORMED TO PEG SITE
--- NOTE | 2018-08-27 22:15 | NUR ---
DISCOVERED THIS PATIENT IN BED. REPORT HAD BEEN CALLED TO ME FROM ER EARLIER FLUSHED SL LOCK TO LEFT AC.... LEFT IJ IN PLACE TO WITH LEVOQUIN RUNNING AT THIS TIME. LCTA BOWEL SOUNDS X4 SKIN WARM AND DRY RESP SLIGHTLY LABORED ASSISTED TO RESTROOM AND BACK TO BED VS 98.1 97% 135/73 110 22. BED LOW CALL LIGHT IN PLACE OTHER STAFF INSTRUCTED TO ASSIST PT TO ROOM ACCOMIDATIONS
--- NOTE | 2018-08-28 00:46 | NUR ---
AWAKE ASSISTED WITH COMFORT MEASURES SRX2 BED LOW AND CALL LIGHT IN REACH
[2018-08-28 00:56] VITALS: BP 124/58
--- NOTE | 2018-08-28 04:22 | NUR ---
ANSWERED CALL LIGHT IMEDIATLY AND FOUND PATIENT HAD LEFT CHAIR AND WAS SITTING ON THE BED..ATTEMPTED TO EXPLAIN WHY SHE NEEDED TO CALL BEFORE SHE AMBULATED ALONE..NO DISTRESS I ASSISTED ON INTO BED AND WITH COMFORT BED LOW SRX2 AND CALL LIGHT IN REACH
--- NOTE | 2018-08-28 04:34 | NUR ---
PT ASLEEP. NO S/S OF DISTRESS. BEDLOW AND CALL LIGHT IN REACH. WILL CPOC
[2018-08-28 06:09] VITALS: BP 127/55
[2018-08-28 06:18] LABS: HEMATOCRIT 28.4 % (36.0-48.0); HEMOGLOBIN 8.9 g/dL (12-16); MCHC 31.3 g/dL (31.0-37.0); MEAN PLATELET VOLUME 9.4 fL (7.4-10.4); PLATELET COUNT 169 10x3/uL (130-400); RDW 21.8 % (11.5-14.5); WBC 7.3 10x3/uL (4.8-10.8)
[2018-08-28 06:21] LABS: CALCIUM 9.2 mg/dL (8.5-10.1); CARBON DIOXIDE 26.7 mmol/L (21.0-32.0); POTASSIUM - SERUM 3.7 mmol/L (3.5-5.1)
[2018-08-28 06:25] LABS: MCV 105.2 fL (80.0-100.0)
--- NOTE | 2018-08-28 07:33 | NUR ---
REPORT RECEIVED. WILL CONTINUE WITH POC. PT CURRENTLY LYING SEMI FOWLERS. CALL LIGHT W/I REACH. PT IS AAO AND UP WITH ASSIST. RR EVEN AND UNLABORED ON 4L 02. NS INFUSING @KVO VIA L.WRIST PIV. PT DENIES ANY NEEDS AT THIS TIME. WILL CTM.
[2018-08-28 08:06] VITALS: BP 136/47
[2018-08-28 08:34] LABS: LYMPHOCYTES 28 % (15-50); MONOCYTES 19 % (2-11); NEUTROPHILS 53 % (40-80)
[2018-08-28 08:35] LABS: ANISOCYTOSIS OCC; PLATELET ESTIMATE NORMAL; ROULEAUX OCC
--- NOTE | 2018-08-28 10:35 | NUR ---
RESP UL ON . NURSE AT STARTING IV. WILL CONT. PLAN OF CARE.
--- NOTE | 2018-08-28 10:41 | NUR ---
REMOVED COBAN AND NONADHERENT PAD FROM RIGHT FOREARM SKIN TEAR FROM FALL ON 08/26. THE TEAR IS 10CM LONG APPROX 1CM WIDE. IRRIGATED WOUND WITH WOUND CLEANSER AND PATTED WITH WET GAUZE. PLACED NONADHERENT PAD TO SKIN TEAR WITH A PIECE OF GAUZE OVER THE TOP AND THE WRAPPED IN COBAN, THEN DATED AND INITIALED DRESSING. PT DENIES ANY NEEDS. WILL CTM.
[2018-08-28 11:22] VITALS: BP 115/40
[2018-08-28 15:40] VITALS: BP 122/47
--- NOTE | 2018-08-28 16:15 | MORECARE ---
CASE MANAGEMENT DISCHARGE SUMMARY PATIENT: SANDI MONTAÑO [place] UNIT: [id number] ADM DATE: 08/23/18 AGE: 82 : 37 SEX: F ROOM/BED: D.1199 AUTHOR: STEFAN RICHARDSON PHYSICIAN: REFERRING PHYSICIAN: ANTHONY LÓPEZ MD DATE OF SERVICE: 08/28/18 Discharge Plan Patient Name: SANDI MONTAÑO Facility: [facility] : 1935 Planned Disposition: Nursing Facility [facility] Cert Anticipated Discharge Date: 08/26/18 Discharge Date: Expected LOS: 3 Initial Reviewer: [email or web address] Initial Review Date: 08/23/2018 Generated: 08/28/18 5:15 pm Comments DCP- Discharge Planning Updated by [email or web address]: Junior Albarran on 08/28/18 3:[address] Patient Name: SANDI MONTAÑO Encounter No: [id number] : 1935 Primary Insurance: MEDICARE A & B Anticipated DC Date: 08-26-2018 Planned Disposition: Nursing Facility [facility] Cert External Planned Provider: [facility] MEDICARE REHAB BED DCP follow-up note: CM SPOKE TO LYNSEY VO WHO REPORTS PLAN TO DISCHARGE PT BACK TO REHAB TOMORROW, 08-29-18. CM CALLED AND SPOKE TO SHELDON AT [facility], , WHO REPORTS THEY PLAN TO ACCEPT PT BACK FOR REHAB AT DISCHARGE, WILL REVIEW UPDATE AND LET CM KNOW FOR SURE IF THEY CAN ACCEPT TOMORROW. CM FAXED UPDATE TO [facility], . [facility] TO VERIFY THAT THEY CAN ACCEPT TOMORROW FOR DISCHARGE TO REHAB; NURSE REPORT TO BE CALLED TO [facility] AT [phone]. FAX [facility] INFORMATION [facility] AT [phone]. [facility] TO [facility]RANGE VAN TRANSPORT. DOT Valadez DCP- Discharge Planning Updated by [id number]: Junior Albarran on 08/27/18 11:[address] Patient Name: SANDI MONTAÑO Encounter No: [id number] : 1935 Primary Insurance: MEDICARE A & B Anticipated DC Date: 08-26-2018 Planned Disposition: Nursing Facility [facility] Cert External Planned Provider: [facility] MED[facility]ARE REHAB B[facility] DCP follow-up note: CM REVIEWED CHART, FAXED REHAB REFERRAL TO SHELDON OF [facility] AT [phone]. CM WAITING ADMISSION DETERMINATION FROM [facility]. Junior Albarran, CASE MANAGEMENT DCP- Discharge Planning Updated by [email or web address]: Junior Albarran on 08/27/18 11:[address] Patient Name: SANDI MONTAÑO Admission Status: ER Accout number: [id number] Admission Date: 08-23-2018 : 1935 Admission Diagnosis: Attending: ANTHONY LÓPEZ Current LOS: 1 Anticipated DC Date: 08-26-2018 Planned Disposition: Nursing Facility [facility] Cert Primary Insurance: MEDICARE A & B Discharge Planning Comments: CM met with patient and her daughter to complete initial dc planning assessment. CM educated patient on the CM role and verbal consent given by patient to complete assessment. Patient lives at home with her significant other. Prior to admission patient was at [facility]. Patient had a CVA approx 8 weeks ago and has has pneumonia multiple times since CVA resulting in readmission from rehabs to acute hospital. CM asked if patient had an ST Eval since the stroke and the daughter stated yes and after the last eval they changed her diet to [place] thick puree diet. Discussed this information with Dr. Zhao and orders received to change diet as above, PT eval, OT eval, ST eval with swallow study. At discharge patient plans to return to [facility]. Prior to her CVA patient was independent and did not use any assistive devices for ambulation. CM will continue to follow and will assist as needed with dc plans/needs. Acoustical Installer: Sushila Garrido RN, [facility] DCPIA - Discharge Planning Initial Assessment Updated by [email or web address]: Sushila Garrido on 08/23/18 7:46 pm * Is the patient Alert and Oriented? No * How many steps to enter\exit or inside your home? None * PCP Dr. Pablo * Pharmacy [facility] [address] * Preadmission Environment Retirement Facility * Facility Name [facility] * ADLs Partial Dependent * Partial ADLs (Assistance needed) Ambulation Bathing Dressing Medication Management Transfers * Equipment None * Other Equipment Does not have any equipment at home. Was independent 8 weeks ago prior to CVA. * List name and contact numbers for known caregivers / representatives who currently or will assist patient after discharge: Melinda Almeida - daughter - [phone] Kenneth Almeida - sig other - [phone] * Community resources currently utilized Other * Please name any agencies selected above. [facility] - family taking patient's belongings and a new referral will have to be submitted for patient to return. * Additional services required to return to the preadmission environment? Yes * Can the patient safely return to the preadmission environment? Yes * Has this patient been hospitalized within the prior 30 days at any hospital? Yes Last DP export: 08/27/18 11:54 am Patient Name: SANDI MONTAÑO Page 41757 at 1615 All edits/amendments must be made on the electronic document DICTATION DATE: 08/28/181614 MYSQL DATABASE DEVELOPER: CHRISTA 08/28/181614 RPT#: [id number] DC DATE: STATUS: ADM IN [facility] [address] [place] [address] END OF REPORT
--- NOTE | 2018-08-28 16:54 | NUR ---
OT NOTE: PT SOB PRIOR TO STARTING THERAPY. STATED THAT SHE NEEDED TO GO TO BATHROOM. AMB WITH MIN ASSIST, IV, O2, RW, GAITBELT AND MIN ASSIST; TOILET HYGIENE WITH MAX ASSIST; CLOTHING MGMT WITH MOD ASSIST; MAX TO DUC SOCKS; ABLE TO AMB IN HALLWAY WITH MIN ASSIST X 2 X APPROX 30-40 FT; REQUIRED EXT REST BREAK WHEN RETURNING TO ROOM. BACK TO BED WITH SBA. LILLI WALLACE, OTR/L
--- NOTE | 2018-08-28 17:44 | NUR ---
OT NOTE: PT COMPLETED EOB SITTING ENDURANCE/BALANCE WITH SBA. PT COMPLETED SIT TO STAND WITH SBA. THANK YOU, DALE JORDAN
--- NOTE | 2018-08-28 18:27 | NUR ---
PT LYING SEMI FOWLERS. CALL LIGHT W/I REACH. SON AT BEDSIDE. NS INFUSING @KVO VIA L.WRIST PIV. RR EVEN AND UNLABORED ON 4L 02. PT DENIES ANY NEEDS. WILL PASS REPORT AND CONTINUE WITH POC.
[2018-08-28 21:07] VITALS: BP 118/58
[2018-08-29 01:12] VITALS: BP 123/47
--- NOTE | 2018-08-29 02:51 | NUR ---
ALERT SITTING UP IN BED IV INFUSING WITHOUT DIFFICULTY, O2 IN USE RESP UNLABORED IV INFUSING AT KVO, NO APPARENT DISTRESS CALL LIGHT IN REACH
[2018-08-29 06:11] VITALS: BP 134/50
[2018-08-29 06:27] LABS: ANION GAP 8.3 mmol/L (8-16); CALCIUM 9.4 mg/dL (8.5-10.1); CARBON DIOXIDE 29.7 mmol/L (21.0-32.0); CREATININE - SERUM 0.9 mg/dL (0.6-1.3)
[2018-08-29 07:12] LABS: HEMOGLOBIN 8.8 g/dL (12-16); LYMPHOCYTES 26.6 % (15-50); MCH 33.8 pg (26.0-34.0); MCHC 32.6 g/dL (31.0-37.0); MCV 103.8 fL (80.0-100.0); MEAN PLATELET VOLUME 9.4 fL (7.4-10.4); NEUTROPHILS 53.2 % (40-80); PLATELET COUNT 166 10x3/uL (130-400); RDW 20.6 % (11.5-14.5)
[2018-08-29 07:49] VITALS: BP 123/49
--- NOTE | 2018-08-29 08:34 | NUR ---
PT ALERT X 3, DISORIENTED TO TIME. BREATH SOUNDS CLEAR BILAT, 2L O2 PER NC. TELEMETRY IN PLACE. PEG TUBE TO UPPER LEFT QUAD, CLAMPED, NOT IN USE AT THIS TIME. PT REPORTING PAIN OF 6/10 AROUND PEG TUBE AREA, NO REDNESS SWELLING OR DRAINAGE NOTED, DRESSING CLEAN DRY AND INTACT, WILL MONITOR. IV TO LEFT HAND, PATENT, DRESSING CLEAN DRY AND INTACT. +1 EDEMA TO LOWER EXTREMITIES. BED LOW, CALL LIGHT IN REACH, NO OTHER NEEDS AT THIS TIME.
[2018-08-29 11:28] VITALS: BP 122/50
--- NOTE | 2018-08-29 12:45 | NUR ---
Nutrition consult: Diet: Low sodium pureed with nectar thick liquids; Boost with meals. Visited with pt and daughter re: PEG tube. Daughter states PEG tube has not been used for at least 2-3 weeks for nutrition or hydration. Pt is currently eating a pureed lunch and has eaten ~75% of meal. Wt: 132# Labs reviewed +BM RDN discussed pros and cons of PEG tube. Daughter states PEG tube is causing pt pain. Pt seems to be able to eat enough at this time to maintain current weight. Pt and daughter want PEG tube out. Recommend if PEG tube removed that pt be weighed daily during hospital, rehab stay and calorie count begin. RDN following.
--- NOTE | 2018-08-29 13:01 | NUR ---
OT NOTE: PT RECEIVING BREATHING TMT. FOLLOWING THIS, PT ABLE TO PERFORM BED MOB WITH CGA; EOB SITTING WITH SPV; AMB IN ROOM AND IN HALLWAY WITH RW, IV, 02, GAIT BELT AND MIN ASSIST. MIN ASSIST TO DUC SOCKS; SET UP TO DUC GOWN. PT DOING VERY WELL; WOULD BENEFIT FROM IN PT REHAB. LILLI WALLACE, OTR/L
[2018-08-29 15:54] VITALS: BP 127/95
[2018-08-29 20:00] VITALS: BP 127/35
--- NOTE | 2018-08-29 20:00 | NUR ---
THE PATIENT WAS LYING IN BED WHEN STAFF ENTERED HER ROOM. THE PATIENT IS PLESANT AND COOPERATIVE AND REQUESTS TO BE REPOSITIONED. BED IN THE LOW POSITION WITH SIDERAILS X2 AND CALL LIGHT WITHIN REACH. PATIENT DEMONSTRATES UNDERSTANDING OF THE CALL LIGHT VIA TEACHBACK METHOD. THE PATIENT HAS NO QUESTIONS OR CONCERNS AT THIS TIME.
[2018-08-30] VITALS: BP 122/47
--- NOTE | 2018-08-30 02:13 | NUR ---
THE PATIENT HAS REQUESTED TO BE REPOSITIONED SEVERAL TIMES DURING THE SHIFT. PATIENT IS ENCOURAGED TO USE HER CALL LIGHT WHEN SHE WANTS ANYTHING. THE PATIENT DMONSTRATES UNDERSTANDING VIA TEACHBACK METHOD.
[2018-08-30 04:00] VITALS: BP 120/53
--- NOTE | 2018-08-30 07:30 | NUR ---
RECEIVED A/A/OX4. DENIES ANY PAIN OR DISCOMFORT WITH NO REQUESTS VOICED. SALINE LOCK PATENT TO LEFT WRIST, 02 ON VIA N/C AT 2 L/M WITH RESP EVEN AND UNLABORED. BED IN LOW POSITION, SIDERAILS UP X 2 AND CALL LIGHT IN REACH. ASSESSMENT COMPLETED. DAUGHTER AT BEDSIDE AND STATE PT IS TO BE DISCHARGED TO REHAB AT [facility] TODAY.
[2018-08-30 09:22] VITALS: Ht 163.8 cm; Wt 59.2 kg
--- NOTE | 2018-08-30 10:20 | NUR ---
CALLED TO ROOM BY PT DAUGHTER. STATES SHE IS HAVING LEAKAGE FROM SITE OF PREVIOUS PEG TUBE. HAD LARGE AMT WHITE WATERY DISCHARGE COMING FROM SITE. PT CLEANED AND NO FURTHER DRAINAGE NOTED. DRESSED WITH 4X4S AND ABD PAD. PT IS VERY TENDER AT SITE AND REDDENED AREA AT TOP OF THE SITE.
--- NOTE | 2018-08-30 11:00 | NUR ---
RESP UL ON . FAMILY MEMBER AT BS. CALL LIGHT IN REACH. WILL CONT. PLAN OF CARE.
--- NOTE | 2018-08-30 11:07 | MORECARE ---
CASE MANAGEMENT DISCHARGE SUMMARY PATIENT: SANDI MONTAÑO [place] UNIT: [id number] ADM DATE: 08/23/18 AGE: 82 : 37 SEX: F ROOM/BED: D.4068 AUTHOR: STEFAN RICHARDSON PHYSICIAN: REFERRING PHYSICIAN: ANTHONY LÓPEZ MD DATE OF SERVICE: 08/30/18 Discharge Plan Patient Name: SANDI MONTAÑO Facility: [facility]:[place] : 1935 Planned Disposition: Nursing Facility [facility] Cert Anticipated Discharge Date: 08/26/18 Discharge Date: Expected LOS: 3 Initial Reviewer: [id number] Initial Review Date: 08/23/2018 Generated: 08/30/18 12:07 pm Comments DCP- Discharge Planning Updated by [email or web address]: Junior Albarran on 08/30/18 10:[address] Patient Name: SANDI MONTAÑO Encounter No: [id number] : 1935 Primary Insurance: MEDICARE A & B Anticipated DC Date: 08-26-2018 Planned Disposition: Nursing Facility [facility] Cert External Planned Provider: [facility], MEDICARE REHAB BED DCP follow-up note: CM CALLED AND SPOKE TO SHELDON AT [facility], , WHO REPORTS THEY PLAN TO ACCEPT PT BACK FOR REHAB AT DISCHARGE TODAY, CM FAXED UPDATE TO [facility], . PT NOTIFIED AND IN AGREEMENT WITH REHAB DISCHARGE TODAY. IMPORTANT MESSAGE FROM MEDICARE PROVIDED AND EXPLAINED. NURSE REPORT TO BE CALLED TO [facility] AT [phone]. FAX DISCHARGE INFORMATION TO [facility] AT [phone]. [facility] TO ARRANGE VAN TRANSPORT. Junior Albarran CASE RUEL DCP- Discharge Planning Updated by [email or web address]: Junior Albarran on 08/28/18 3:[address] Patient Name: SANDI MONTAÑO Encounter No: [id number] : 1935 Primary Insurance: MEDICARE A & B Anticipated DC Date: 08-26-2018 Planned Disposition: Nursing Facility [facility] Cert External Planned Provider: [facility] MEDICARE REHAB BED DCP follow-up note: CM SPOKE TO LYNSEY VO WHO REPORTS PLAN TO DISCHARGE PT BACK TO REHAB TOMORROW, 08-29-18. CM CALLED AND SPOKE TO SHELDON AT [facility], , WHO REPORTS THEY PLAN TO ACCEPT PT BACK FOR REHAB AT DISCHARGE, WILL REVIEW UPDATE AND LET CM KNOW FOR SURE IF THEY CAN ACCEPT TOMORROW. CM FAXED UPDATE TO [facility], . [facility] TO VERIFY THAT THEY CAN ACCEPT TOMORROW FOR DISCHARGE TO REHAB; NURSE REPORT TO BE CALLED TO [facility] AT [phone]. FAX DISCHARGE INFORMATION TO [facility] AT [phone]. [facility] TO ARRANGE VAN TRANSPORT. Junior Albarran CASE MANAGEMENT DCP- Discharge Planning Updated by [id number]: Junior Albarran on 08/27/18 11:[address] Patient Name: SANDI MONTAÑO Encounter No: [id number] : 1935 Primary Insurance: MEDICARE A & B Anticipated DC Date: 08-26-2018 Planned Disposition: Nursing Facility [facility] Cert External Planned Provider: [facility], MEDICARE REHAB BED DCP follow-up note: CM REVIEWED CHART, FAXED REHAB REFERRAL TO [facility] AT [phone]. CM WAITING ADMISSION DETERMINATION FROM [facility]. DOT Valadez DCP- Discharge Planning Updated by [email or web address]: Junior Albarran on 08/27/18 11:[address] Patient Name: SANDI MONTAÑO Admission Status: ER Accout number: [id number] Admission Date: 08-23-2018 : 1935 Admission Diagnosis: Attending: ANTHONY LÓPEZ Current LOS: 1 Anticipated DC Date: 08-26-2018 Planned Disposition: Nursing Facility [facility] Cert Primary Insurance: MEDICARE A & B Discharge Planning Comments: CM met with patient and her daughter to complete initial dc planning assessment. CM educated patient on the CM role and verbal consent given by patient to complete assessment. Patient lives at home with her significant other. Prior to admission patient was at [facility]. Patient had a CVA approx 8 weeks ago and has has pneumonia multiple times since CVA resulting in readmission from rehabs to acute hospital. CM asked if patient had an ST Eval since the stroke and the daughter stated yes and after the last eval they changed her diet to [place] thick puree diet. Discussed this information with Dr. Zhao and orders received to change diet as above, PT eval, OT eval, ST eval with swallow study. At discharge patient plans to return to [facility]. Prior to her CVA patient was independent and did not use any assistive devices for ambulation. CM will continue to follow and will assist as needed with dc plans/needs. Pest Control Worker Helper: Sushila Garrido RN, [facility] DCPIA - Discharge Planning Initial Assessment Updated by [id number]: Sushila Garrido on 08/23/18 7:46 pm * Is the patient Alert and Oriented? No * How many steps to enter\exit or inside your home? None * PCP Dr. Pablo * Pharm[facility] [address] * Preadmission Environment Senior Living Facility * Facility Name [facility] * ADLs Partial Dependent * Partial ADLs (Assistance needed) Ambulation Bathing Dressing Medication Management Transfers * Equipment None * Other Equipment Does not have any equipment at home. Was independent 8 weeks ago prior to CVA. * List name and contact numbers for known caregivers / representatives who currently or will assist patient after discharge: Danitacaryyanni Almeida - daughter - [phone] Kenneth Almeida - sig other - [phone] * Community resources currently utilized Other * Please name any agencies selected above. [facility] - family taking patient's belongings and a new referral will have to be submitted for patient to return. * Additional services required to return to the preadmission environment? Yes * Can the patient safely return to the preadmission environment? Yes * Has this patient been hospitalized within the prior 30 days at any hospital? Yes Last DP export: 08/28/18 3:15 pm Patient Name: SANDI MONTAÑO Page 86001 at 1107 All edits/amendments must be made on the electronic document DICTATION DATE: 08/30/181106 DEAN OF GRADUATE STUDIES: CHRISTA 08/30/181106 RPT#: [id number] DC DATE: STATUS: ADM IN [facility] [address] [place] [address] END OF REPORT
--- NOTE | 2018-08-30 11:23 | MORECARE ---
CASE MANAGEMENT DISCHARGE SUMMARY PATIENT: SANDI MONTAÑO [place] UNIT: [id number] ADM DATE: 08/23/18 AGE: 82 : 37 SEX: F ROOM/BED: D.9404 AUTHOR: STEFAN RICHARDSON PHYSICIAN: REFERRING PHYSICIAN: ANTHONY LÓPEZ MD DATE OF SERVICE: 08/30/18 Discharge Plan Patient Name: SANDI MONTAÑO Facility: [facility]:[place] : 1935 Planned Disposition: Nursing Facility [facility] Cert Anticipated Discharge Date: 08/30/18 Discharge Date: Expected LOS: 7 Initial Reviewer: [email or web address] Initial Review Date: 08/23/2018 Generated: 08/30/18 12:23 pm Comments DCP- Discharge Planning Updated by [email or web address]: Junior Albarran on 08/30/18 10:[address] Patient Name: SANDI MONTAÑO Encounter No: [id number] : 1935 Primary Insurance: MEDICARE A & B Anticipated DC Date: 08-26-2018 Planned Disposition: Nursing Facility [facility] Cert External Planned Provider: [facility], MEDICARE REHAB BED DCP follow-up note: CM CALLED AND SPOKE TO SHELDON AT [facility], , WHO REPORTS THEY PLAN TO ACCEPT PT BACK FOR REHAB AT DISCHARGE TODAY, CM FAXED UPDATE TO [facility], . PT NOTIFIED AND IN AGREEMENT WITH REHAB DISCHARGE TODAY. IMPORTANT MESSAGE FROM MEDICARE PROVIDED AND EXPLAINED. NURSE REPORT TO BE CALLED TO [facility] AT [phone]. FAX DISCHARGE INFORMATION TO [facility] AT [phone]. [facility] TO [facility]ANGE VAN TRANSPORT. Junior Albarran CASE RUEL DCP- Discharge Planning Updated by [email or web address]: Junior Albarran on 08/28/18 3:[address] Patient Name: SANDI MONTAÑO Encounter No: [id number] : 1935 Primary Insurance: MEDICARE A & B Anticipated DC Date: 08-26-2018 Planned Disposition: Nursing Facility [facility] Cert External Planned Provider: [facility] MEDICARE REHAB BED DCP follow-up note: CM SPOKE TO LYNSEY VO WHO REPORTS PLAN TO DISCHARGE PT BACK TO REHAB TOMORROW, 08-29-18. CM CALLED AND SPOKE TO SHELDON AT [facility], , WHO REPORTS THEY PLAN TO ACCEPT PT BACK FOR REHAB AT DISCHARGE, WILL REVIEW UPDATE AND LET CM KNOW FOR SURE IF THEY CAN ACCEPT TOMORROW. CM FAXED UPDATE TO [facility], . [facility] TO VERIFY THAT THEY CAN ACCEPT TOMORROW FOR DISCHARGE TO REHAB; NURSE REPORT TO BE CALLED TO [facility] AT [phone]. FAX DISCHARGE INFORMATION TO [facility] AT [phone]. [facility] TO ARRANGE VAN TRANSPORT. Junior Albarran CASE MANAGEMENT DCP- Discharge Planning Updated by [email or web address]: Junior Albarran on 08/27/18 11:[address] Patient Name: SANDI MONTAÑO Encounter No: [id number] : 1935 Primary Insurance: MEDICARE A & B Anticipated DC Date: 08-26-2018 Planned Disposition: Nursing Facility [facility] Cert External Planned Provider: [facility], MEDICARE REHAB BED DCP follow-up note: CM REVIEWED CHART, FAXED REHAB REFERRAL TO [facility] AT [phone]. CM WAITING ADMISSION DETERMINATION FROM [facility]. DOT Valadez DCP- Discharge Planning Updated by [id number]: Junior Albarran on 08/27/18 11:[address] Patient Name: SANDI MONTAÑO Admission Status: ER Accout number: [id number] Admission Date: 08-23-2018 : 1935 Admission Diagnosis: Attending: ANTHONY LÓPEZ Current LOS: 1 Anticipated DC Date: 08-26-2018 Planned Disposition: Nursing Facility [facility] Cert Primary Insurance: MEDICARE A & B Discharge Planning Comments: CM met with patient and her daughter to complete initial dc planning assessment. CM educated patient on the CM role and verbal consent given by patient to complete assessment. Patient lives at home with her significant other. Prior to admission patient was at [facility]. Patient had a CVA approx 8 weeks ago and has has pneumonia multiple times since CVA resulting in readmission from rehabs to acute hospital. CM asked if patient had an ST Eval since the stroke and the daughter stated yes and after the last eval they changed her diet to [place] thick puree diet. Discussed this information with Dr. Zhao and orders received to change diet as above, PT eval, OT eval, ST eval with swallow study. At discharge patient plans to return to [facility]. Prior to her CVA patient was independent and did not use any assistive devices for ambulation. CM will continue to follow and will assist as needed with dc plans/needs. Song Lyricist: Sushila Garrido RN, [facility] DCPIA - Discharge Planning Initial Assessment Updated by [email or web address]: Sushila Garrido on 08/23/18 7:46 pm * Is the patient Alert and Oriented? No * How many steps to enter\exit or inside your home? None * PCP Dr. Pablo * [facility] [address] * Preadmission Environment Care Home Facility * Facility Name [facility] * ADLs Partial Dependent * Partial ADLs (Assistance needed) Ambulation Bathing Dressing Medication Management Transfers * Equipment None * Other Equipment Does not have any equipment at home. Was independent 8 weeks ago prior to CVA. * List name and contact numbers for known caregivers / representatives who currently or will assist patient after discharge: Melinda Lauartur - daughter - [phone] Kenneth Almeida - sig other - [phone] * Community resources currently utilized Other * Please name any agencies selected above. [facility] - family taking patient's belongings and a new referral will have to be submitted for patient to return. * Additional services required to return to the preadmission environment? Yes * Can the patient safely return to the preadmission environment? Yes * Has this patient been hospitalized within the prior 30 days at any hospital? Yes Coverage Notice Reviewer: [id number] - Junior Albarran Notice Issued Date-Time: 08/30/2018 11:15 Notice Type: IM Discharge Notice Notice Delivered To: Family Member Relationship to Patient: Daughter Clerical Adviser Name: GÓMEZ HANSEN Delivery Method: HAND - Hand Delivered Natalie Days: Prior Verbal Notification: Recipient Understood Notice: Yes Recipient Signature: Yes Med Rec Note Co-signed by Attending: Coverage Notice Comment: Last DP export: 08/30/18 10:07 a Patient Name: SANDI MONTAÑO Page 93989 at 1123 All edits/amendments must be made on the electronic document DICTATION DATE: 08/30/181121 QUALITY PROCESS LEAD: CHRISTA 08/30/181121 RPT#: [id number] DC DATE: STATUS: ADM IN [facility] [address] [place] [address] END OF REPORT
[2018-08-30] MEDS ORDERED: LEVAQUIN750 MG PO (12:33)
[2018-08-30 14:01] VITALS: BP 125/72
--- NOTE | 2018-08-30 14:15 | NUR ---
DISCHARGE INSTRUCTIONS REVIEWED WITH PT AND HER DAUGHTER. VERBALIZED UNDERSTANDING WITH NO QUESTIONS. SALINE LOCK REMOVED WITH TIP INTACT. ASSISTED WITH DRESSING AND LEFT FLOOR VIA W/C WITH ALL PERSONAL BELONGINGS. LEFT FACILITY VIA VAN FROM [facility]. REPORT CALLED TO N[facility]. [phone].
--- NOTE | 2018-08-30 14:30 | MORECARE ---
CASE MANAGEMENT DISCHARGE SUMMARY PATIENT: SANDI MONTAÑO TAVERNIER UNIT: [id number] ADM DATE: 08/23/18 AGE: 82 : 37 SEX: F ROOM/BED: D.3559 AUTHOR: DYLAN,DOC PHYSICIAN: REFERRING PHYSICIAN: ANTHONY LÓPEZ MD DATE OF SERVICE: 08/30/18 Discharge Plan Patient Name: SANDI MONTAÑO Facility: [facility]:[place] : 1935 Planned Disposition: Nursing Facility [facility] Cert Anticipated Discharge Date: 08/30/18 Discharge Date: Expected LOS: 7 Initial Reviewer: [email or web address] Initial Review Date: 08/23/2018 Generated: 08/30/18 3:30 pm Comments DCP- Discharge Planning Updated by [email or web address]: Junior Albarran on 08/30/18 1:[address] Patient Name: SANDI MONTAÑO Encounter No: [id number] : 1935 Primary Insurance: MEDICARE A & B Anticipated DC Date: 08-26-2018 Planned Disposition: Nursing Facility [facility] Cert External Planned Provider: [facility], MEDICARE REHAB BED DCP follow-up note: CM CALLED AND SPOKE TO SHELDON AT [facility], , WHO REPORTS THEY PLAN TO ACCEPT PT BACK FOR REHAB AT DISCHARGE TODAY, CM FAXED UPDATE TO [facility], . PT NOTIFIED AND IN AGREEMENT WITH REHAB DISCHARGE TODAY. IMPORTANT MESSAGE FROM MEDICARE PROVIDED AND EXPLAINED. NURSE REPORT TO BE CALLED TO [facility] AT [phone]. FAX DISCHARGE INFORMATION TO [facility] AT [phone]. [facility] TO [facility] VAN TRANSPORT. Junior Albarran CASE MANAGEMENT Appended by Junior Albarran on 08/30/2018 14:25 PHYSICAL THERAPY AIDES TEACHER: CM RECEIVED DISCHARGE, FAXED DISCHARGE INFORMATION TO [facility] AT [phone]. NURSE REPORT TO BE CALLED TO SHARLENE OF [facility] AT [phone]. [facility] TO [facility]AN TRANSPORT. DOT Valadez DCP- Discharge Planning Updated by [email or web address]: Junior Albarran on 08/28/18 3:[address] Patient Name: SANDI MONTAÑO Encounter No: [id number] : 1935 Primary Insurance: MEDICARE A & B Anticipated DC Date: 08-26-2018 Planned Disposition: Nursing Facility [facility] Cert External Planned Provider: [facility], MEDICARE REHAB BED DCP follow-up note: CM SPOKE TO [facility] WHO REPORTS PLAN TO DISCHARGE PT BACK TO REHAB TOMORROW, 08-29-18. CM CALLED AND SPOKE TO SHELDON AT [facility], , WHO REPORTS THEY PLAN TO ACCEPT PT BACK FOR REHAB AT DISCHARGE, WILL REVIEW UPDATE AND LET CM KNOW FOR SURE IF THEY CAN ACCEPT TOMORROW. CM FAXED UPDATE TO [facility], . [facility] TO VERIFY THAT THEY CAN ACCEPT TOMORROW FOR DISCHARGE TO REHAB; NURSE REPORT TO BE CALLED TO [facility] AT [phone]. FAX DISCHARGE INFORMATION TO [facility] AT [phone]. [facility] TO ARRANGE VAN TRANSPORT. Junior Albarran CASE MANAGEMENT DCP- Discharge Planning Updated by [id number]: Junior Albarran on 08/27/18 11:[address] Patient Name: SANDI MONTAÑO Encounter No: [id number] : 1935 Primary Insurance: MEDICARE A & B Anticipated DC Date: 08-26-2018 Planned Disposition: Nursing Facility [facility] Cert External Planned Provider: [facility] MEDICARE REHAB BED DCP follow-up note: CM REVIEWED CHART, FAXED REHAB REFERRAL TO SHELDON OF [facility] AT [phone]. CM WAITING ADMISSION DETERMINATION FROM [facility]. DOT Valade[facility] DCP- Discharge Planning Updated by [id number]: Junior Albarran on 08/27/18 11:[address] Patient Name: SANDI MONTAÑO Admission Status: ER Accout number: [id number] Admission Date: 08-23-2018 : 1935 Admission Diagnosis: Attending: ANTHONY LÓPEZ Current LOS: 1 Anticipated DC Date: 08-26-2018 Planned Disposition: Nursing Facility [facility] Cert Primary Insurance: MEDICARE A & B Discharge Planning Comments: CM met with patient and her daughter to complete initial dc planning assessment. CM educated patient on the CM role and verbal consent given by patient to complete assessment. Patient lives at home with her significant other. Prior to admission patient was at [facility]. Patient had a CVA approx 8 weeks ago and has has pneumonia multiple times since CVA resulting in readmission from rehabs to acute hospital. CM asked if patient had an ST Eval since the stroke and the daughter stated yes and after the last eval they changed her diet to Symonds thick puree diet. Discussed this information with Dr. Zhao and orders received to change diet as above, PT eval, OT eval, ST eval with swallow study. At discharge patient plans to return to [facility]. Prior to her CVA patient was independent and did not use any assistive devices for ambulation. CM will continue to follow and will assist as needed with dc plans/needs. Investigator Utility Bill Complaints: Sushila Garrido RN, [facility] DCPIA - Discharge Planning Initial Assessment Updated by [id number]: Sushila Garrido on 08/23/18 7:46 pm * Is the patient Alert and Oriented? No * How many steps to enter\exit or inside your home? None * PCP Dr. Pablo * Pharmacy [facility] on [address] * Preadmission Environment [facility] * Facility Name [facility] * ADLs Partial Dependent * Partial ADLs (Assistance needed) Ambulation Bathing Dressing Medication Management Transfers * Equipment None * Other Equipment Does not have any equipment at home. Was independent 8 weeks ago prior to CVA. * List name and contact numbers for known caregivers / representatives who currently or will assist patient after discharge: Danitacaryyanni Almeida - daughter - [phone] Kenneth Almeida - sig other - [phone] * Community resources currently utilized Other * Please name any agencies selected above. [facility] - family taking patient's belongings and a new referral will have to be submitted for patient to return. * Additional services required to return to the preadmission environment? Yes * Can the patient safely return to the preadmission environment? Yes * Has this patient been hospitalized within the prior 30 days at any hospital? Yes External Providers External Provider: [facility] Next Contact Date: 08/28/2018 Service Request Date: Service Type: Resolution: Reviewer: Comments: Coverage Notice Reviewer: [email or web address] Lizbeth Albarran Notice Issued Date-Time: 08/30/2018 11:15 Notice Type: IM Discharge Notice Notice Delivered To: Family Member Relationship to Patient: Daughter Lead Burner Helper Name: GÓMEZ HANSEN Delivery Method: HAND - Hand Delivered Natalie Days: Prior Verbal Notification: Recipient Understood Notice: Yes Recipient Signature: Yes Med Rec Note Co-signed by Attending: Coverage Notice Comment: Last DP export: 08/30/18 10:23 a Patient Name: SANDI MONTAÑO Page [phone] at 1430 All edits/amendments must be made on the electronic document DICTATION DATE: 08/30/18 1430 METAL MILLING MACHINE OPERATOR: CHRISTA 08/30/18 1430 RPT#: [id number] DC DATE: STATUS: ADM IN [facility] [address] [place] [address] END OF REPORT
== END 2018-08-30 14:15 | DRG 291 ==
LOC: D.ER 16:06 → D.EDHOLD 17:51 → D.M2 17:51
PROVIDERS: Family Medicine; ADMIT Internal Medicine Nephrology
DX: I11.0 Hypertensive heart disease with heart failure (principal); I50.21 Acute systolic (congestive) heart failure; J18.1 Lobar pneumonia, unspecified organism; J96.01 Acute respiratory failure with hypoxia; N39.0 Urinary tract infection, site not specified; E87.1 Hypo-osmolality and hyponatremia; E44.0 Moderate protein-calorie malnutrition; I25.10 Atherosclerotic heart disease of native coronary artery without angina pectoris; I48.0 Paroxysmal atrial fibrillation; I44.7 Left bundle-branch block, unspecified; I34.0 Nonrheumatic mitral (valve) insufficiency; D53.9 Nutritional anemia, unspecified; Z68.22 Body mass index [BMI] 22.0-22.9, adult; Z95.1 Presence of aortocoronary bypass graft; Y95 Nosocomial condition

== ENCOUNTER 2018-09-23 11:20 | Observation (INO) | payer MEDICARE, BC ==
[~2018-09-23] VITALS: Ht 163.8 cm; Wt 54.5 kg
[2018-09-23] VITALS (11 sets, daily range): BP systolic 110–160; BP diastolic 54–81; Ht 163.8 cm; Wt 54.5 kg
[~2018-09-23 11:20] MED LIST changes: +LEVAQUIN750 MG PO
[2018-09-23 11:44] LABS: BASOPHILS 0 % (0-2); EOSINOPHILS 0.2 % (0-7); HEMATOCRIT 32.2 % (36.0-48.0); HEMOGLOBIN 10.3 g/dL (12-16); IMMATURE GRANULOCYTES 0.6 % (0-5); LYMPHOCYTES 27.7 % (15-50); MCH 33.3 pg (26.0-34.0); MCV 104.2 fL (80.0-100.0); MEAN PLATELET VOLUME 9.6 fL (7.4-10.4); MONOCYTES 17.5 % (2-11); RBC 3.09 10x6/uL (4.00-5.40); RDW 19.1 % (11.5-14.5); WBC 11.8 10x3/uL (4.8-10.8)
[2018-09-23 11:49] LABS: PLATELET COUNT 240 10x3/uL (130-400)
[2018-09-23 11:58] LABS: ALBUMIN 2.7 g/dL (3.4-5.0); ALKALINE PHOSPHATASE 71 U/L (46-116); ALT (SGPT) 13 U/L (10-68); CALC OSMOLALITY 273 mosm/kg (275-300); CALCIUM 9.7 mg/dL (8.5-10.1); CARBON DIOXIDE 19.3 mmol/L (21.0-32.0); CHLORIDE - SERUM 105 mmol/L (98-107); CREATININE - SERUM 1.3 mg/dL (0.6-1.3); GLUCOSE 120 mg/dL (74-106); POTASSIUM - SERUM 4.3 mmol/L (3.5-5.1); PROTEIN - SERUM 7.1 g/dL (6.4-8.2); SODIUM 137 mmol/L (136-145); UREA NITROGEN 11 mg/dL (7-18); eGFR NON AFRICAN AMERICAN 42 mL/min (90-120)
[2018-09-23 12:14] LABS: CKMB 1.4 U/L (0.0-3.6); CREATINE KINASE 19 UL (21-215); PRO BNP 6864 pg/mL (0-450); TROPONIN-I 0.019 ng/mL (0.000-0.060)
--- NOTE | 2018-09-23 15:13 | NUR ---
PT ARRIVED FROM ER VIA STRETCHER. MONITOR ON AND RATE IS 134 UCAF WITH BBB.CARDIZEM GTT IS GOING AT10/HR.SEE ASSESSMENT FOR FURTHER EVAL
--- NOTE | 2018-09-23 15:24 | NUR ---
PT DOES NOT KNOW HER MEDS NOR WHICH PHARMACY SHE USES. SHE SAYS HER SPOUSE WILL BE HERE LATER AND HAS THE LIST AND KNOWS WHICH PHARMACY.
--- NOTE | 2018-09-23 15:56 | NUR ---
ASSESSMENT COMPLETE PT UP TO BR WITH ASSIST UNSTEADY ON FEET SOB ON EXERTION FAMILY AT BEDSIDE
--- NOTE | 2018-09-23 16:59 | NUR ---
WITHOUT CHANGES OR DISTRESS NOTED AT THIS TIME. DENIES NEEDS.
--- NOTE | 2018-09-23 19:51 | NUR ---
INITIAL ROUNDS AND ASSESSMENT COMPLETED. PT RESTING IN BED WITH NO DISTRESS. CARDIZEM DRIP AT 10ML/HR INFUSING TO RIGHT A/C. CURRENTLY 65/SR PER TELEMETRY. NONLABORED RESPIRATIONS ON ROOM AIR. MONITOR AND CPOC.
--- NOTE | 2018-09-23 20:04 | NUR ---
SINCE PT IS 60 SR AND HAS BEEN AROUND THIS RATE SINCE START OF SHIFT, WILL HOLD SCHEDULED DIGOXIN DOSE AT 2000 AND RE-EVALUATE AT MIDNIGHT WHEN SHE ALSO HAS A SCHEDULED DIGOXIN DOSE.
--- NOTE | 2018-09-23 23:25 | NUR ---
PT SITTING ON SIDE OF BED. VOICING NO NEEDS. ALERT/ORIENTED. ASKING ABOUT HER HOME MEDS. ALL MEDS ON HOLD UNTIL REVIEWED BY MD. PT VOICED UNDERSTANDING. PLUS SHE WILL BE NPO AFTER MIDNIGHT FOR HEART CATH IN THE AM. MONITOR AND CPOC.
--- NOTE | 2018-09-23 23:38 | NUR ---
PT RESTING IN BED. ALERT/ORIENTED. ASSISTED TO PUT ON CLEAN DEPENDS. IV CARDIZEM DECREASED TO 5ML/HR DUE TO 65/SR AND HAS BEEN SR SINCE BEGINNING OF SHIFT. CONTINUING TO HOLD ORDERED DIGOXIN PT IS STAYING SR.
[2018-09-24] VITALS: BP 134/55
--- NOTE | 2018-09-24 01:45 | NUR ---
PT AWAKE, LYING IN BED AND STARING AT HER CARDIZEM DRIP TUBING. STATES IT HAS NOT DRIPPED "IN HOURS" AND SOMETHING MUST BE WRONG WITH IT. EXPLAINED TO PATIENT THAT SHE IS RECIEVING 5ML/HR AND IT WILL BE A SUPER SLOW DRIP BUT IS STILL EFFECTIVE, PLUS NECESSARY TO WEAN HER OFF OF THE CARDIZEM. PT STILL CHOOSES TO NOT SIGN ANY CONSENT FORMS FOR POTENTIAL CATH OR CARDIOVERSION IN AM. SON IS SUPPOSED TO BE HERE IN AM TO TALK WITH HIS MOTHER/PATIENT.
[2018-09-24 04:00] VITALS: BP 125/50
--- NOTE | 2018-09-24 08:15 | NUR ---
ASSESSMENT DONE. DENIES NEEDS.
[2018-09-24 08:52] VITALS: BP 142/60
[2018-09-24 10:06] LABS: BASOPHILS 0.1 % (0-2); EOSINOPHILS 0.5 % (0-7); HEMATOCRIT 30.8 % (36.0-48.0); HEMOGLOBIN 9.7 g/dL (12-16); IMMATURE GRANULOCYTES 0.6 % (0-5); LYMPHOCYTES 32.5 % (15-50); MCH 33.1 pg (26.0-34.0); MCHC 31.5 g/dL (31.0-37.0); MCV 105.1 fL (80.0-100.0); MEAN PLATELET VOLUME 10.2 fL (7.4-10.4); MONOCYTES 18.1 % (2-11); NEUTROPHILS 48.2 % (40-80); PLATELET COUNT 198 10x3/uL (130-400); RBC 2.93 10x6/uL (4.00-5.40)
[2018-09-24 10:08] LABS: ANION GAP 12.6 mmol/L (8-16); CALCIUM 9.6 mg/dL (8.5-10.1); CARBON DIOXIDE 22.9 mmol/L (21.0-32.0); WBC 8.5 10x3/uL (4.8-10.8)
[2018-09-24 10:09] LABS: POTASSIUM - SERUM 3.5 mmol/L (3.5-5.1)
--- NOTE | 2018-09-24 12:47 | NUR ---
DC GIVEN TO PT AND DAUGHTER
--- NOTE | 2018-09-24 13:00 | NUR ---
DC HOME PER PERSONAL CAR
--- NOTE | 2018-09-25 07:57 | MORECARE ---
CASE MANAGEMENT DISCHARGE SUMMARY PATIENT: SANDI MONTAÑOHAM UNIT: [id number] ADM DATE: 09/23/18 AGE: 83 : 37 SEX: F ROOM/BED: D.3727 AUTHOR: STEFAN RICHARDSON PHYSICIAN: REFERRING PHYSICIAN: OZIEL PHOENIX MD DATE OF SERVICE: 09/25/18 Discharge Plan Patient Name: SANDI MONTAÑO Facility: [facility]:[place] : 1935 Planned Disposition: Home Anticipated Discharge Date: 09/24/18 Discharge Date: 09/24/2018 Expected LOS: 1 Initial Reviewer: [email or web address] Initial Review Date: 09/25/2018 Generated: 09/25/18 8:57 am Coverage Notice Reviewer: [email or web address] Lizbeth Garrido Notice Issued Date-Time: 09/23/2018 13:39 Notice Type: Medicare Outpatient Observation Notice Notice Delivered To: Patient Relationship to Patient: Multimedia Producer Name: Delivery Method: HAND - Hand Delivered Natalie Days: Prior Verbal Notification: Recipient Understood Notice: Yes Recipient Signature: Yes Med Rec Note Co-signed by Attending: Coverage Notice Comment: Patient Name: SANDI MONTAÑO Page [phone] at 0757 All edits/amendments must be made on the electronic document DICTATION DATE: 09/25/18 0757 FILTERATION OPERATOR: CHRISTA 09/25/18 0757 RPT#: [id number] DC DATE:09/24/18 STATUS: DIS IN [facility] [address] [place] [address] END OF REPORT
--- NOTE | 2018-09-26 17:10 | DS ---
PATIENT:SANDI MONTAÑO :[birth year] MEDICAL RECORD: [id number] DISCHARGE SUMMARY ADMISSION DATE: 09/23/18 DISCHARGE DATE: 09/24/18 DATE OF SERVICE: 09/24/2018. DIAGNOSES: 1. Paroxysmal atrial fibrillation. 2. Coronary artery disease. 3. Hypertension. 4. Dyspnea on exertion and shortness of breath. HOSPITAL COURSE: Mrs. Montaño presents with dyspnea on exertion, shortness of breath, found to have atrial fibrillation. She has a history of atrial fibrillation. She was given an extra dose of sotalol converted to sinus rhythm and was discharged home with no change in her medications. We were really unsure as to what she is taking. She will follow up tomorrow and bring her medications. We will adjust her sotalol and Cardizem at that time. TRANSINT:[id number] Voice Confirmation ID: [id number] DOCUMENT ID: [id number] OZIEL PHOENIX MD at 1710 CC: [id number] DICTATION DATE: 09/24/18 1055 INCREMENT MANAGER: 09/25/18 0151 DIS IN 09/24/18 [facility] [address] [place] [address]
== END 2018-09-24 13:00 | disposition home or self-care (01) ==
LOC: D.ER 11:20 → OBSVTIME 13:09 → D.EDHOLD 13:09 → D.M2 13:44
PROVIDERS: Family Medicine; ADMIT Internal Medicine Interventional Cardiology
DX: I48.0 Paroxysmal atrial fibrillation (principal); I10 Essential (primary) hypertension; I25.10 Atherosclerotic heart disease of native coronary artery without angina pectoris; R06.00 Dyspnea, unspecified

== ENCOUNTER 2018-10-15 08:15 | Emergency (ER) | payer MEDICARE, BC ==
[~2018-10-15] VITALS: Ht 163.8 cm; Wt 54.1 kg
[2018-10-15 08:20] VITALS: Ht 163.8 cm; Wt 54.1 kg
[2018-10-15 09:03] LABS: BASOPHILS 0.1 % (0-2); EOSINOPHILS 0.2 % (0-7); HEMATOCRIT 40.4 % (36.0-48.0); HEMOGLOBIN 13.2 g/dL (12-16); IMMATURE GRANULOCYTES 0.2 % (0-5); LYMPHOCYTES 43.6 % (15-50); MCH 33.7 pg (26.0-34.0); MCHC 32.7 g/dL (31.0-37.0); MCV 103.1 fL (80.0-100.0); MEAN PLATELET VOLUME 10.5 fL (7.4-10.4); MONOCYTES 14.3 % (2-11); NEUTROPHILS 41.6 % (40-80); PLATELET COUNT 261 10x3/uL (130-400); RBC 3.92 10x6/uL (4.00-5.40); RDW 15.8 % (11.5-14.5); WBC 9.4 10x3/uL (4.8-10.8)
[2018-10-15 09:28] LABS: ALKALINE PHOSPHATASE 74 U/L (46-116); ALT (SGPT) 12 U/L (10-68); BILIRUBIN - TOTAL 0.29 mg/dL (0.2-1.3); CARBON DIOXIDE 22.1 mmol/L (21.0-32.0); CHLORIDE - SERUM 104 mmol/L (98-107); CKMB 2.6 U/L (0.0-3.6); CREATINE KINASE 44 UL (21-215); GLUCOSE 133 mg/dL (74-106); POTASSIUM - SERUM 4.1 mmol/L (3.5-5.1); PROTEIN - SERUM 7.9 g/dL (6.4-8.2); SODIUM 138 mmol/L (136-145)
[2018-10-15 09:49] LABS: CALC OSMOLALITY 305 mosm/kg (275-300); CALCIUM 10.1 mg/dL (8.5-10.1); TROPONIN-I 0.078 ng/mL (0.000-0.060); UREA NITROGEN 91 mg/dL (7-18); eGFR NON AFRICAN AMERICAN 56 mL/min (90-120)
[2018-10-15 11:21] VITALS: BP 118/68
--- NOTE | 2018-10-16 15:29 | CN ---
PATIENT NAME:SANDI MONTAÑO MEDICAL RECORD: [id number] : [birth year] LOCATION:.ER ADMIT DATE: ACCOUNT: [id number] CONSULTING PHYSICIAN: OZIEL PHOENIX MD REFERRING PHYSICIAN: LORNE VILLA MD DATE OF CONSULTATION: 10/15/2018 CARDIOLOGY CONSULTATION DATE OF SERVICE: 10/15/2018 DIAGNOSES: 1. Atrial fibrillation with rapid ventricular response. 2. Paroxysmal atrial fibrillation. 3. Hypertension. 4. Coronary artery disease. 5. Shortness of breath, dyspnea on exertion. HISTORY OF PRESENT ILLNESS: Mrs. Montaño presents with shortness of breath, dyspnea on exertion and atrial fibrillation with rapid ventricular response. In the past, she has been on sotalol, but 80 mg b.i.d. made her too bradycardic. We then switched to Cardizem. She has reverted back to the atrial fibrillation. She was given 2 doses of Cardizem and converted to sinus rhythm. PHYSICAL EXAMINATION: GENERAL APPEARANCE: Well-nourished, well-developed, appears stated age. Level of distress, comfortable. PSYCHIATRIC: Mental status, alert, normal affect. Orientation, oriented to time, place and person. EYES: Lids and conjunctiva, noninjected. No discharge, no pallor. ENT: Lips, teeth, gums, normal dentition. Oropharynx, no cyanosis, no pallor. NECK: Carotid arteries, bilateral normal upstroke, no bruits, no thrills. JUGULAR VEINS: No jugular venous pressure or distention. CERVICAL LYMPH NODES: Nontender, nonenlarged. THYROID: Not enlarged. Nontender. No nodules. LUNGS: Respiratory effort, unlabored. CHEST: Normal curvature. No thoracic deformity. No chest wall tenderness. Percussion, resonant. Auscultation, clear. No wheezes, no rales, no rhonchi. CARDIOVASCULAR: Precordial exam, nondisplaced. No heaves or pericardial thrills. Rate and rhythm, regular. Heart sounds, normal S1, normal S2. No S3, no gallop, no rub. Systolic murmur, not heard. Diastolic murmur, not heard. EXTREMITIES: No cyanosis, no edema. Peripheral pulses, full and equal in all extremities, except as noted. No bruits appreciated. ABDOMEN: Soft, nondistended. Normal aorta. No bruit. Nontender. No masses. Liver, nontender, no hepatomegaly. Spleen, nontender, no splenomegaly. MUSCULOSKELETAL: No joint tenderness. No joint swelling. No erythema. NEUROLOGICAL: Normal gait, normal strength, normal tone. SKIN: Warm and dry. OVERALL IMPRESSION: At this time, we will retry the sotalol, but only at half a tablet - 40 mg b.i.d. in addition to the Cardizem. Follow up with [facility] as previously scheduled. TRANSINT:[id number] Voice Confirmation ID: [id number] DOCUMENT ID: [id number] CONSULT REPORT [id number] SANDI MONTAÑO JEFFREY MD at 1529 CC: [id number] DICTATION DATE: 10/15/18 1019 ANIMAL MAINTENANCE SUPERVISOR: 10/15/18 1114 DEP ER 10/15/[address] [address]
== END 2018-10-15 11:10 | disposition home or self-care (01) ==
LOC: D.ER 08:15
PROVIDERS: Emergency Medicine
DX: I48.91 Unspecified atrial fibrillation (principal); E03.9 Hypothyroidism, unspecified

== ENCOUNTER 2018-10-26 08:05 | Emergency (ER) | payer MEDICARE, BC ==
[~2018-10-26] VITALS: Ht 163.8 cm; Wt 55.7 kg
[2018-10-26 08:15] VITALS: Ht 163.8 cm; Wt 55.7 kg
[2018-10-26 08:33] LABS: HEMATOCRIT 35.6 % (36.0-48.0); HEMOGLOBIN 11.5 g/dL (12-16); MCH 33.2 pg (26.0-34.0); MCHC 32.3 g/dL (31.0-37.0); MCV 102.9 fL (80.0-100.0); MEAN PLATELET VOLUME 10.7 fL (7.4-10.4); RBC 3.46 10x6/uL (4.00-5.40); RDW 15.4 % (11.5-14.5); WBC 10.8 10x3/uL (4.8-10.8)
[2018-10-26 08:39] LABS: PLATELET COUNT 160 10x3/uL (130-400)
[2018-10-26 08:59] LABS: APTT 27.3 SECONDS (22.8-39.4); INR 1.22 (0.85-1.17); PROTIME 14.9 SECONDS (11.6-15.0)
[2018-10-26 09:03] LABS: ALBUMIN 3.1 g/dL (3.4-5.0); ALKALINE PHOSPHATASE 74 U/L (46-116); ALT (SGPT) 14 U/L (10-68); BILIRUBIN - TOTAL 0.81 mg/dL (0.2-1.3); CALC OSMOLALITY 276 mosm/kg (275-300); CALCIUM 10.1 mg/dL (8.5-10.1); CARBON DIOXIDE 25.2 mmol/L (21.0-32.0); CHLORIDE - SERUM 106 mmol/L (98-107); GLUCOSE 103 mg/dL (74-106); POTASSIUM - SERUM 4.2 mmol/L (3.5-5.1); PROTEIN - SERUM 7.7 g/dL (6.4-8.2); SODIUM 139 mmol/L (136-145); UREA NITROGEN 9 mg/dL (7-18); eGFR NON AFRICAN AMERICAN 56 mL/min (90-120)
[2018-10-26 09:14] LABS: CKMB 0.9 U/L (0.0-3.6); CREATINE KINASE 35 UL (21-215); MAGNESIUM - SERUM 1.8 mg/dL (1.8-2.4); THYROID STIMULATING HORMONE 0.86 uIU/mL (0.36-3.74); TROPONIN-I 0.027 ng/mL (0.000-0.060)
[2018-10-26 09:45] LABS: ANISOCYTOSIS 1+; LYMPHOCYTES 30 % (15-50); MONOCYTES 14 % (2-11); NEUTROPHILS 50 % (40-80); PLATELET ESTIMATE NORMAL
[2018-10-26 12:37] VITALS: BP 166/78
== END 2018-10-26 12:38 | disposition other institution (70) ==
LOC: D.ER 08:05
PROVIDERS: Family Medicine
DX: I63.9 Cerebral infarction, unspecified (principal); R47.01 Aphasia; R29.810 Facial weakness; G83.21 Monoplegia of upper limb affecting right dominant side

== ENCOUNTER → 2019-06-04 08:35 | Outpatient (CLI) | payer MEDICARE, BC ==
[2018-10-26 08:15] VITALS: BMI 20.7
[~2019-06-04 08:35] MED LIST changes: +BETAPACE 120 M120 MG PO; +CRANBERRY PO; +ELIQUIS2.5 MG PO; +LANOXIN125 MCG PO; +LEVOFLOXACIN500 MG PO; +LIPITOR20 MG PO; +MACROBID100 MG PO; +SULFAMETHOXAZOL1 TA2 PO
--- NOTE | 2019-06-04 09:17 | NUR ---
0861 PT RECEIVED TO WATER QUALITY ANALYST HOLDING, CONSENTS SIGNED. EKG DONE, NSR. [address] PHOENIX, ORDERS TO RELEASE PT TO [facility] FOR SCHEDULED STRESS TEST. ORDERS TO CANCEL CARDIOVERSION. 1861 PT TRANSFERED AMBULATORY TO [facility] WITH TECH.
--- NOTE | 2019-06-06 13:29 | ST ---
PATIENT:SANDI MONTAÑO MEDICAL RECORD: [id number] SEX: F LOCATION:D.CAT ORDER #: ADMISSION DATE: 06/04/19 AGE OF PATIENT: 83 REFERRING PHYSICIAN: INTERPRETING PHYSICIAN: OZIEL PHOENIX MD DATE OF SERVICE: 06/04/2019 PROCEDURE: Nuclear stress test. INDICATION: Angina and coronary artery disease, hypertension, shortness of breath. She was exercised on standard Lexiscan protocol with 33 mCi of sestamibi injected at the peak stress, 11 mCi used previously for rest images. FINDINGS: Gated SPECT reveals preserved ejection fraction at 73% with good wall motion and thickening and brightening throughout all segments. SPECT imaging: Cardiolite was used as myocardial fusion agent. There is homogeneous uptake throughout all segments at rest and stress with no evidence of inducible ischemia or previous infarction. OVERALL IMPRESSION: 1. This is a normal nuclear stress test with no evidence of inducible ischemia or previous infarction. 2. Gated SPECT reveals a preserved ejection fraction at 73%. In this patient with ongoing symptomatology, the current scan does not suggest the presence of hemodynamically significant coronary artery disease. Evaluate noncardiac etiology of chest pain. TRANSINT:[id number] Voice Confirmation ID: [id number] DOCUMENT ID: [id number] OZIEL PHOENIX MD at 1329 CC: ANGELINE GUZMÁN MD [id number] DICTATION DATE: 06/04/19 1650 FERRYBOAT PILOT: 06/05/19 0758 DEP CLI 06/04/19 [facility] [address] [place] [address]
== END | disposition home or self-care (01) ==
LOC: D.CATH 08:35 → D.HCCARDIO 11:00
PROVIDERS: ATTEND Internal Medicine Interventional Cardiology
DX: I25.119 Atherosclerotic heart disease of native coronary artery with unspecified angina pectoris (principal); I10 Essential (primary) hypertension; R06.02 Shortness of breath

== ENCOUNTER 2019-06-08 10:09 | Inpatient (IN) | payer MEDICARE, BC ==
[~2019-06-08] VITALS: Ht 163.8 cm; Wt 49.9 kg
--- NOTE | ~2019-06-08 | HEMODYNAMI ---
PATIENT:SANDI MONTAÑO MEDICAL RECORD: [id number] : 39 LOCATION:IselaMS Weiss2232 ADMISSION DATE: 06/08/19 Generatedon:06/09/201915:51 Patient name: SANDI MONTAÑO Patient #: [id number] SSN: : 1935 Date of study: 06/09/2019 Page: Of Hemodynamic Procedure Report Patient Data Patient Demographics Procedure consent was obtained First Name: SANDI Gender: Female Last Name: DANYEL : 1935 Middle Initial: MICHAEL Age: 83 year(s) Patient #: [id number] Race: Additional ID: [id number] Contact details Address: [address] [place] [address] State: [facility] Zip code: [address] Past Medical History Allergies Allergen Reaction Date Comments Reported Other 05/09/2016 Betapace, Codeine, Eliquis, Flagyl, Latex, Lortab , Morphine, allergy Rhythmol, Sulfa, Tetracycline, Tramadol Other 01/03/2017 Codeine, Eliquis, Flagyl, Latex, Lortab, Propafen one, Sotalol, allergy Sulfa, Tetracycline, Tramadol Other 05/14/2017 Sulfa, Lortab, Eliquis, Codeine, Hydrocodone, Lat ex, Flacyl, allergy Morphine, Sotalol, Tetracyline, Tramadol. Sulfa 06/09/2019 drugs Morphine 06/09/2019 Other 06/09/2019 metronidazole, allergy tetracycline,tramadol,proprolactone,ahythmol,code ine,hydrocodone Admission Admission Data Admission Date: 06/08/2019 Admission Time: 13:37 Room #: [id number].2232 Height (in.): 64 BSA: 1.52 (m2) Height (cm.): 162.56 BMI: 18.88 (kg/m2) Weight (lbs.): 110 Weight (kg.): 49.9 Procedure Procedure Types Cath Procedure Peripheral Cath Diagnostic Procedure Ground Surveillance Systems Operator Peripheral Procedures Miscellaneous Aspiration/Injection (Joint) Procedure Description Procedure Date Procedure Date: 06/09/2019 Procedure Start Time: 15:17 Procedure Staff Name Function Mina Gómez MD Performing Physician Tanna Morris RT Vice President Sales DAVID CASTELLANOS RT Scrub Procedure Data Cath Procedure Fluoroscopy Diagnostic fluoroscopy Total fluoroscopy Time: 0.6 time: 0.6 min min Diagnostic fluoroscopy Total fluoroscopy dose: 3 dose: 3 mGy mGy Hemodynamics Rest BSA: 1.52 (m2) O2 Consumption: Estimated: 206.72 (ml/min) O2 Consumption indexed : Estimated:136 (ml/min/m) Pre Cath Intra NCS Post Cath Procedure Log Time Note 13:39:54 Patient Height : 64 inches 13:39:58 Patient Weight : 110 lbs 14:05:50 Time tracking: Regular hours (M-F 7:00 - 5:00) 14:06:08 Plan of Care:Hemodynamics will remain stable., Cardiac rhythm will remain stable., Comfort level will be maintained., Respiratory function will remain adequate., Patient/ family verbilizes understanding of procedure., Procedure tolerated without complication., Recovers from procedure without complications.. 14:06:14 Patient received from Med/Surg to IR Alert and oriented. Tansferred to table in Supine position. 14:06:19 Signed procedure consent form obtained from guardian. 14:06:29 H&P Date Dictated: 06/09/2019 Within 30 days and on chart.. 14:06:32 Pre-procedure instructions explained to patient. 14:06:33 Pre-op teaching completed and patient verbalized understanding. 14:06:36 Family in patients room. 14:06:49 Patient allergic to Sulfa drugs 14:07:00 Patient allergic to Morphine 14:45:23 Patient allergic to Other allergymetronidazole, tetracycline,tramadol,proprolactone,ahythmol,codeine,hydrocodone 15:16:42 Right Arm was prepped with betadine and draped in sterile fashion. 15:16:44 Physician arrived 15:16:45 --------ALL STOP TIME OUT------ 15:16:45 Final Timeout: patient, procedure, and site verified with staff and physician. All members of the team are in agreement. 15:17:04 Procedure started. 15:17:05 Full Disclosure recording started 15:31:28 Procedure ended.(Physican Out) 15:50:32 Fluoroscopy time 00.60 minutes. 15:50:36 Fluoroscopy dose: 3 mGy 15:50:36 Flurop Dose total: 3 15:50:38 Procedure and supply charges have been captured, reviewed, submitted and are correct. Signature Audit [place] Stage Time Signature Unsigned Intra-Procedure 06/09/2019 Tanna Morris 3:51:37 PM RT(R) [facility] [address] [place] [address]
[~2019-06-08 10:09] MED LIST changes: -CRANBERRY PO; -LEVOFLOXACIN500 MG PO; -LIPITOR20 MG PO; -MACROBID100 MG PO; -SULFAMETHOXAZOL1 TA2 PO
[2019-06-08] MEDS ORDERED: OXYBUTYNIN CHLOR5 MG PO (10:37)
[2019-06-08] MEDS ORDERED: LIPITOR20 MG PO (10:40)
--- NOTE | 2019-06-08 10:46 | NUR ---
PT IN CT.
--- NOTE | 2019-06-08 10:51 | NUR ---
BACK FROM CT. MURRAY. WELL. CT STATES PT TALKED TO HIM IN CT.
[2019-06-08 11:15] LABS: HEMATOCRIT 35.7 % (36.0-48.0); HEMOGLOBIN 11.9 g/dL (12-16); MCHC 33.3 g/dL (31.0-37.0); MCV 98.9 fL (80.0-100.0); MEAN PLATELET VOLUME 10.3 fL (7.4-10.4); PLATELET COUNT 163 10x3/uL (130-400); RBC 3.61 10x6/uL (4.00-5.40); RDW 13.3 % (11.5-14.5); WBC 15.2 10x3/uL (4.8-10.8)
[2019-06-08 11:25] LABS: APTT 34.3 SECONDS (22.8-39.4); INR 1.39 (0.85-1.17); PROTIME 16.5 SECONDS (11.6-15.0)
[2019-06-08 11:26] LABS: CALC OSMOLALITY 259 mosm/kg (275-300); CARBON DIOXIDE 27.5 mmol/L (21.0-32.0); CHLORIDE - SERUM 98 mmol/L (98-107); GLUCOSE 135 mg/dL (74-106); POTASSIUM - SERUM 3.9 mmol/L (3.5-5.1); SODIUM 129 mmol/L (136-145); UREA NITROGEN 10 mg/dL (7-18); eGFR NON AFRICAN AMERICAN 56 mL/min (90-120)
[2019-06-08 11:41] LABS: ALBUMIN 3.4 g/dL (3.4-5.0); ALKALINE PHOSPHATASE 73 U/L (46-116); ALT (SGPT) 14 U/L (10-68); BILIRUBIN - TOTAL 2.61 mg/dL (0.2-1.3); CKMB 0.7 U/L (0.0-3.6); CREATINE KINASE 23 UL (21-215); MAGNESIUM - SERUM 1.6 mg/dL (1.8-2.4); PROTEIN - SERUM 8.2 g/dL (6.4-8.2); THYROID STIMULATING HORMONE 2.04 uIU/mL (0.36-3.74)
[2019-06-08 11:42] LABS: LYMPHOCYTES 16 % (15-50); MONOCYTES 24 % (2-11); NEUTROPHILS 58 % (40-80); PLATELET ESTIMATE NORMAL
[2019-06-08 11:43] LABS: C-REACTIVE PROTEIN 3.5 mg/dL (0.0-0.9); URIC ACID 3.8 mg/dL (2.6-7.2)
[2019-06-08 11:49] LABS: TROPONIN-I < 0.017 ng/mL (0.000-0.060)
[2019-06-08 11:57] VITALS: BP 163/83
[2019-06-08 12:54] VITALS: BP 127/83
[2019-06-08 14:22] VITALS: BP 126/65; BMI 18.6
--- NOTE | 2019-06-08 14:30 | NUR ---
PT RECEIVED TO ROOM WITH FALL PRECATIONS IN PLANCE WITH DAUGHTER PRESENT. LIMITED ROM AND ERRYTHEMA NOTED TO RT WRIST WITH PEDAL PULSES NOTED. CONFUSION NOTED DUE TO DEMENTIA BUT PLEASANT AND ABLE TO FOLLOW SIMPLE COMMANDS. AMBULATES WITH SBA TO BATHROOM. ENCOURAGED PT AND DAUGHTER TO USE CALL LIGHT FOR ASSSIT.
[2019-06-08 15:16] LABS: APPEARANCE CLOUDY (CLEAR); BILIRUBIN NEGATIVE (NEGATIVE); COLOR STRAW (YELLOW); GLUCOSE NEGATIVE (NEGATIVE); KETONE NEGATIVE (NEGATIVE); NITRITE POSITIVE (NEGATIVE); PROTEIN NEGATIVE (NEGATIVE); UROBILINOGEN NORMAL (NORMAL)
[2019-06-08 15:17] LABS: RED CELLS - URINE OCC /hpf (0-5); WHITE CELLS - URINE OCC /hpf (NEGATIVE)
[2019-06-08 15:18] LABS: BACTERIA MANY /hpf (NEGATIVE)
[2019-06-08 16:09] VITALS: BP 124/60
--- NOTE | 2019-06-08 16:20 | NUR ---
Rehab Note- Acute Inpatient Rehab prescreen order received. The patient has pending consults and medical work up pending. Will follow at this time for possible inpatient acute rehab stay when medically stable and ready for discharge from the acute hospital. Thank you for this referral! Willow Pratt RN Clinical Liaison, [facility] Rehab
--- NOTE | 2019-06-08 19:20 | NUR ---
WENT IN TO MEET AND ASSESS PATIENT. SIGNIFICANT OTHER AT BEDSIDE. VITALS OBTAINED AT THIS TIME. PULSE RATE IS RANGING 40-45. ONLY ONCE DID HEART RATE PEAK AT 49 DURING SEVERAL MINUTES OF MONITORING. REVIEWED HS MEDICATIONS WITH SIGNIFICANT OTHER WHO IS DISEASE CASE MANAGER RN. INSTRUCTED PATIENT THAT IF PULSE RATE DOESN'T RISE, THIS NURSE WILL HOLD UNTIL IT IS ABOVE 60. SIGNIFICANT OTHER UPSET. STATES THAT WE ARE GOING TO GET HER A FIB OUT OF CONTROL. EDUCATED PATIENT ON EFFECTS OF SOTALOL, ESPECIALLY 120 MG BID, THAT WITH PULSE RATE THAT LOW IT COULD LOWER PULSE RATE TO AN UNSAFE RANGE. SIGNIFICANT OTHER CONTINUALLY UPSET. THIS NURSE STATED THAT SHE WOULD CALL THE DOCTOR FOR FURTHER INSTRUCTION. JULIETA SHINE APRN WHO IS HONEY BLENDER FOR ADMITTING DR--DR. Dejan DESHPANDE. IMMEDIATE RETURN CALL. DISCUSSED FINDINGS WITH RL VO APRN. DISCUSSED PULSE RATE IN DEPTH. RL VO APRN STATED TO HOLD SOTALOL AT THIS TIME AND CONSULT CARDIOLOGY FOR IN THE MORNING. RL VO APRN STATED THAT PATIENT WAS HOSPITALIZED EARLIER IN THE YEAR AND PATIENT HAS/IS DIG TOXIC AND MEDICATIONS NEED TO BE REVIEWED WITH CARDIOLOGY AT THIS TIME. ORDER PUT IN FOR CARDIOLOGY. PATIENT SLIGHTLY CONFUSED, ORIENTED TO SELF AND SURROUNDINGS. UNSURE OF YEAR AND EXACT LOCATION. PATIENT RIGHT WRIST SIGINIFICANTLY MORE SWOLLEN THAN LEFT WRIST. VISIBLE REDNESS AND WARM TO TOUCH. PATIENT IS CURRENTLY SALINE LOCKED AT THIS TIME. OTHER THAN PULSE RATE, VITAL SIGNS ARE STABLE. PATIENT HAS A 20 G TO THE LEFT HAND. DENIES PAIN AT THIS TIME. CALL LIGHT IN REACH. FALL PRECAUTIONS IN PLACE. DENIES FURTHER NEEDS AT THIS TIME. CPOC.
--- NOTE | 2019-06-08 20:00 | NUR ---
INFORMED PATIENT AND SIGNIFICANT OTHER. PATIENT STILL IRRITATED WITH THIS NURSE ABOUT HOLDING SOTALOL. INSTRUCTED THAT AN ORDER HAS BEEN PLACED FOR CARDIOLOGY. PATIENT SIGNIFICANT OTHER STATED THAT PATIENT WEARS A MEDICAL ALERT [place]KLACE BECAUSE [facility] [place] PLACED A IVC FILTER. DENIES PAIN. FALL PRECAUTIONS IN PLACE. CALL LIGHT IN REACH. CPOC
--- NOTE | 2019-06-08 21:00 | NUR ---
PATIENT SIGNIFICANT OTHER LEFT. FALL PRECAUTIONS CHECKED X 2 BY THIS NURSE AND CONSTRUCTION TRADES CONTRACTOR. REEDUCATED PATIENT ON USE OF CALL LIGHT.
[2019-06-08 21:09] VITALS: BP 163/48
[2019-06-09 00:53] VITALS: BP 142/50
--- NOTE | 2019-06-09 02:35 | NUR ---
I have reviewed this patient and I concur with the Shift Assessment completed by the Licensed Practical Nurse today this shift.
--- NOTE | 2019-06-09 03:34 | NUR ---
ASSISTED PATIENT TO BATHROOM. RETURNED TO BED AND REAPPLIED SCD'S. JUAN ALARM ON. DOOR OPEN. CONTINUAL MONITORING OF PATIENT. CPOC.
[2019-06-09 04:47] VITALS: BP 154/58
[2019-06-09 05:08] LABS: BASOPHILS 0 % (0-2); EOSINOPHILS 0.1 % (0-7); HEMATOCRIT 31.1 % (36.0-48.0); HEMOGLOBIN 10.4 g/dL (12-16); IMMATURE GRANULOCYTES 0.4 % (0-5); LYMPHOCYTES 22.8 % (15-50); MCHC 33.4 g/dL (31.0-37.0); MCV 98.7 fL (80.0-100.0); MEAN PLATELET VOLUME 10.7 fL (7.4-10.4); MONOCYTES 36.9 % (2-11); NEUTROPHILS 39.8 % (40-80); PLATELET COUNT 145 10x3/uL (130-400); RBC 3.15 10x6/uL (4.00-5.40); RDW 13.7 % (11.5-14.5)
[2019-06-09 05:24] LABS: WBC 11.2 10x3/uL (4.8-10.8)
[2019-06-09 05:28] LABS: ANION GAP 9.7 mmol/L (8-16); CALCIUM 9.2 mg/dL (8.5-10.1); CARBON DIOXIDE 25.2 mmol/L (21.0-32.0); CREATININE - SERUM 0.9 mg/dL (0.6-1.3); POTASSIUM - SERUM 3.9 mmol/L (3.5-5.1)
--- NOTE | 2019-06-09 06:37 | NUR ---
TREATED 1.6 MAGNESIUM WITH 400 MG MAGOX
--- NOTE | 2019-06-09 08:00 | NUR ---
ASSESSMENT PER FLOW SHEET. PT IS WITHOUT DISTRESS.CALL LIGHT IN REACH.
[2019-06-09 08:01] VITALS: BP 166/59
[2019-06-09 13:17] VITALS: BP 148/88
[2019-06-09 14:33] VITALS: Ht 163.8 cm; Wt 49.9 kg
[2019-06-09 16:42] VITALS: BP 142/78
--- NOTE | 2019-06-09 18:59 | NUR ---
PT REMAINS WITHOUT DISTRESS.FAMILY IN ROOM.CONT PLAN OF CARE
[2019-06-09 19:07] LABS: EOS BF 2 %; MACROPHAGES BF 8 %; MESOTHELIALS BF 1 %; NEUT - BF 77 %
--- NOTE | 2019-06-09 20:00 | NUR ---
A&O X 4, WITH OCCASIONAL REORIENTation to place AND SITUATION. REPORTS PAIN OF 8/10 TO RIGHT WRIST. FAMILY AT BEDSIDE. DENIES NEEDS AT THIS TIME, WILL CONTINUE TO MONITOR.
--- NOTE | 2019-06-09 20:19 | NUR ---
OT NOTE: PT COMPLETED BED MOB WITH MIN A. PT COMPLETED EOB SITTING WITH SBA. PT COMPLETED TOILETING WITH MIN A. THANK YOU,DALE JORDAN
[2019-06-09 20:50] VITALS: BP 150/70
[2019-06-10 01:04] VITALS: BP 126/87
--- NOTE | 2019-06-10 01:33 | NUR ---
I have reviewed this patient and I concur with the Shift Assessment completed by the Licensed Practical Nurse today this shift.
[2019-06-10 04:42] VITALS: BP 138/82
[2019-06-10 05:15] LABS: HEMATOCRIT 31.4 % (36.0-48.0); HEMOGLOBIN 10.5 g/dL (12-16); MCH 33.5 pg (26.0-34.0); MCHC 33.4 g/dL (31.0-37.0); MCV 100.3 fL (80.0-100.0); MEAN PLATELET VOLUME 10.7 fL (7.4-10.4); PLATELET COUNT 148 10x3/uL (130-400); RBC 3.13 10x6/uL (4.00-5.40); RDW 13.8 % (11.5-14.5); WBC 12.8 10x3/uL (4.8-10.8)
[2019-06-10 06:04] LABS: ALBUMIN 2.6 g/dL (3.4-5.0); ANION GAP 8.9 mmol/L (8-16); BILIRUBIN - TOTAL 1.71 mg/dL (0.2-1.3); CARBON DIOXIDE 24.7 mmol/L (21.0-32.0); CREATININE - SERUM 0.9 mg/dL (0.6-1.3); POTASSIUM - SERUM 3.6 mmol/L (3.5-5.1); PROTEIN - SERUM 6.4 g/dL (6.4-8.2)
--- NOTE | 2019-06-10 08:00 | NUR ---
ASSESSMENT PER FLOW SHEET. PT IS WITHOUT DISTRESS.FALL PREVENTION IN PLACE WITH JUAN. DOOR OPEN.MONITOR FOR NEEDS.
[2019-06-10 08:27] VITALS: BP 179/66
[2019-06-10 11:12] LABS: ANISOCYTOSIS OCC; EOSINOPHILS 2 % (0-7); HYPOCHROMASIA OCC; LYMPHOCYTES 23 % (15-50); MONOCYTES 22 % (2-11); NEUTROPHILS 48 % (40-80); PLATELET ESTIMATE NORMAL; ROULEAUX OCC
--- NOTE | 2019-06-10 12:15 | NUR ---
OT NOTE: PT PERFORMED VERY WELL TODAY. BED MOB WITH CGA; IN ROOM AMBULATION WITH CGA; FUNCTIONAL TRANSFERS WITH CGA; SIMPLE GROOMING TASKS WITH SET UP; TOILETING WITH CGA. ABLE TO AMB THROUGHOUT HALLWAY X 200 FT WITH CGA. NO SOB NOTED. MILD PAIN REPORTED IN WRIST. LILLI WALLACE, OTR/L
[2019-06-10 12:34] VITALS: BP 147/55
--- NOTE | 2019-06-10 15:11 | MORECARE ---
CASE MANAGEMENT DISCHARGE SUMMARY PATIENT: SANDI MONTAÑO [place] UNIT: [id number] ADM DATE: 06/08/19 AGE: 83 : 37 SEX: F ROOM/BED: D.2232 AUTHOR: STEFAN RICHARDSON PHYSICIAN: REFERRING PHYSICIAN: BLAISE DESHPANDE MD DATE OF SERVICE: 06/10/19 Discharge Plan Patient Name: SANDI MONTAÑO Facility: [facility]:[place] : 1935 Planned Disposition: Home Anticipated Discharge Date: Discharge Date: Expected LOS: Initial Reviewer: [email or web address] Initial Review Date: 06/10/2019 Generated: 06/10/19 4:11 pm Patient Name: SANDI MONTAÑO Page 13457 at 1511 All edits/amendments must be made on the electronic document DICTATION DATE: 06/10/191510 NIGHT BAKER: CHRISTA 06/10/191510 RPT#: [id number] DC DATE: STATUS: ADM IN [facility] [address] [place] [address] END OF REPORT
--- NOTE | 2019-06-10 15:27 | MORECARE ---
CASE MANAGEMENT DISCHARGE SUMMARY PATIENT: ASNDI MONTAÑO [place] UNIT: [id number] ADM DATE: 06/08/19 AGE: 83 : 37 SEX: F ROOM/BED: D.2232 AUTHOR: STEFAN RICHARDSON PHYSICIAN: REFERRING PHYSICIAN: BLAISE DESHPANDE MD DATE OF SERVICE: 06/10/19 Discharge Plan Patient Name: SANDI MONTAÑO Facility: [facility]:[place] : 1935 Planned Disposition: Home Anticipated Discharge Date: Discharge Date: Expected LOS: Initial Reviewer: [email or web address] Initial Review Date: 06/10/2019 Generated: 06/10/19 4:27 pm DCPIA - Discharge Planning Initial Assessment Updated by [id number]: Terra Roberto on 06/10/19 3:27 pm * Is the patient Alert and Oriented? Yes * How many steps to enter\exit or inside your home? 0/0 * PCP Dr. Pablo * Pharmacy [facility] on [address] * Preadmission Environment Home with Family * ADLs Partial Dependent * Partial ADLs (Assistance needed) Medication Management * Equipment Cane Power Chair or Electric Scooter Walker * List name and contact numbers for known caregivers / representatives who currently or will assist patient after discharge: Porfirio Almeida - [facility] other - [phone] Erin Juan Pablo - R - [phone] * Verbal permission to speak to the caregivers and representatives has been obtained from the patient. Yes * Community resources currently utilized None * Additional services required to return to the preadmission environment? No * Can the patient safely return to the preadmission environment? Yes * Has this patient been hospitalized within the prior 30 days at any hospital? No Last DP export: 06/10/19 2:11 Patient Name: SANDI MONTAÑO Page 92362 at 1527 All edits/amendments must be made on the electronic document DICTATION DATE: 06/10/191526 PLAY BACK OPERATOR: CHRISTA 06/10/191526 RPT#: [id number] DC DATE: STATUS: ADM IN [facility] [address] [place] [id number] END OF REPORT
--- NOTE | 2019-06-10 15:38 | MORECARE ---
CASE MANAGEMENT DISCHARGE SUMMARY PATIENT: SANDI MONTAÑO [place] UNIT: [id number] ADM DATE: 06/08/19 AGE: 83 : 37 SEX: F ROOM/BED: D.2232 AUTHOR: STEFAN RICHARDSON PHYSICIAN: REFERRING PHYSICIAN: BLAISE DESHPANDE MD DATE OF SERVICE: 06/10/19 Discharge Plan Patient Name: SANDI MONTAÑO Facility: [facility]:[place] : 1935 Planned Disposition: Home Anticipated Discharge Date: Discharge Date: Expected LOS: Initial Reviewer: [email or web address] Initial Review Date: 06/10/2019 Generated: 06/10/19 4:37 pm Comments DCP- Discharge Planning Updated by [id number]: Terra Roberto on 06/10/19 2:[address] Patient Name: SANDI MONTAÑO Admission Status: ER Accout number: [id number] Admission Date: 06-08-2019 : 1935 Admission Diagnosis: Attending: BLAISE DESHPANDE Current LOS: 2 Anticipated DC Date: Planned Disposition: Home Primary Insurance: MEDICARE A & B Discharge Planning Comments: CM met with patient to discuss discharge planning/needs, she is alone in the room. She states she lives with her significant other and has for 7 years. States she is independent with all ADL's. She is fixated on wanting to go home and declines home health. She states she has had home health before and "it didn't work out." I called Porfirio to further discuss discharge plans. He states she is independent, except he sets up her medications. He states that she has a cane and walker at the house, but does not use them. She also has an electric scooter. I informed him of home health, rehab and DME benefits available and he declines need at this time. CM will continue to follow and assist with discharge planning/needs. Gold Leaf Layer: Terra Roberto DCPIA - Discharge Planning Initial Assessment Updated by [email or web address]: Terra Roberto on 06/10/19 3:27 pm * Is the patient Alert and Oriented? Yes * How many steps to enter\\exit or inside your home? 0/0 * PCP Dr. Pablo * Pharmacy [facility] on [address] * Preadmission Environment Home with Family * ADLs Partial Dependent * Partial ADLs (Assistance needed) Medication Management * Equipment Cane Power Chair or Electric Scooter Walker * List name and contact numbers for known caregivers / representatives who currently or will assist patient after discharge: Porfirio Almeida - significant other - [phone] Erin Almeida - DTR - [phone] * Verbal permission to speak to the caregivers and representatives has been obtained from the patient. Yes * Community resources currently utilized None * Additional services required to return to the preadmission environment? No * Can the patient safely return to the preadmission environment? Yes * Has this patient been hospitalized within the prior 30 days at any hospital? No Last DP export: 06/10/19 2:27 Patient Name: SANDI MONTAÑO Page 68511 at 1538 All edits/amendments must be made on the electronic document DICTATION DATE: 06/10/191536 CIRCUIT BREAKER SUPERVISOR: CHRISTA 06/10/191536 RPT#: [id number] DC DATE: STATUS: ADM IN [facility] [address] [place] [address] END OF REPORT
[2019-06-10 17:19] VITALS: BP 160/73
--- NOTE | 2019-06-10 18:22 | NUR ---
FAMILY TO VISIT AGAIN. PT IS WITHOUT DISTRESS. SHE WANTS TO GO HOME IN AM. FAMILY TALKING WITH HER RE.. IMPORTANCE OF TEST PLANNED FOR AM. PT REMAINS WITHOUT NEEDS.CONT PLAN OF CARE
--- NOTE | 2019-06-10 18:35 | NUR ---
OT NOTE: PT COOPERATIVE. PT COMPLETED ADL MOB WITH CGA. PT COMPLETED BED MOB WITH CGA/MIN A. PT COMPLETED TOILETING TASKS WITH MIN A. THANK YOU, DALE JORDAN
--- NOTE | 2019-06-10 20:00 | NUR ---
ALERT SITTING UP IN BED, SON AT BEDSIDE, SLIGHT EDEMA AND REDNESS NOTED TO RIGHT WRIST, SEE SHIFT ASSESSMENT, CALL LIGHT IN REACH
[2019-06-10 20:34] VITALS: BP 167/70
[2019-06-11 01:19] VITALS: BP 140/66
[2019-06-11 05:03] VITALS: BP 176/68
[2019-06-11 05:10] LABS: BASOPHILS 0.1 % (0-2); EOSINOPHILS 0.2 % (0-7); HEMATOCRIT 30.3 % (36.0-48.0); HEMOGLOBIN 9.9 g/dL (12-16); IMMATURE GRANULOCYTES 0.5 % (0-5); LYMPHOCYTES 29.4 % (15-50); MCH 32.8 pg (26.0-34.0); MCHC 32.7 g/dL (31.0-37.0); MCV 100.3 fL (80.0-100.0); MEAN PLATELET VOLUME 10.7 fL (7.4-10.4); MONOCYTES 30.9 % (2-11); NEUTROPHILS 38.9 % (40-80); PLATELET COUNT 141 10x3/uL (130-400); RBC 3.02 10x6/uL (4.00-5.40); RDW 13.7 % (11.5-14.5)
[2019-06-11 05:38] LABS: WBC 8.2 10x3/uL (4.8-10.8)
[2019-06-11 05:42] LABS: ALBUMIN 2.5 g/dL (3.4-5.0); ANION GAP 8.9 mmol/L (8-16); BILIRUBIN - TOTAL 1.35 mg/dL (0.2-1.3); C-REACTIVE PROTEIN 5.9 mg/dL (0.0-0.9); CALCIUM 9.3 mg/dL (8.5-10.1); CARBON DIOXIDE 25.2 mmol/L (21.0-32.0); CREATININE - SERUM 0.8 mg/dL (0.6-1.3); POTASSIUM - SERUM 4.1 mmol/L (3.5-5.1); PROTEIN - SERUM 6.7 g/dL (6.4-8.2)
--- NOTE | 2019-06-11 07:10 | NUR ---
ALERT SITTING UP IN BED, CONFUSED AT TIMES. UP WITH ASSIST. NO C/O PAIN. NO S/S OF ACUTE DISTRESS NOTED. SWELLING AND BRUISING TO RIGHT WRIST. JUAN ALARM ON. SCDS. IV TO LEFT FOREARM, NS INFUSING @ 75ML/HR. SITE PATENT WITHOUT REDNESS OR SWELLING. TELEMETRY 98 AFIB. PATIENT DENIES ANY NEEDS AT THIS TIME. CALL LIGHT IN REACH. FAMILY AT BEDSIDE. WILL CONTINUE TO MONITOR.
[2019-06-11 08:41] LABS: ERYTHROCYTE SEDIMENTATION RATE 8 mm/hr (0-30)
[2019-06-11 09:21] VITALS: BP 213/107
[2019-06-11 10:27] VITALS: BP 162/76
--- NOTE | 2019-06-11 11:30 | NUR ---
I have reviewed this patient and I concur with the Shift Assessment completed by the Licensed Practical Nurse today this shift.
[2019-06-11 12:40] VITALS: BP 169/71
--- NOTE | 2019-06-11 15:22 | NUR ---
CALLED REPORT TO HERON AT [facility].
--- NOTE | 2019-06-11 17:14 | NUR ---
OT NOTE: PT COMPLETED BED MOB WITH MIN A. PT COMPLETED SIT TO STAND WITH CGA. PT COMPLETED FACE WASH WITH SET UP. PT COMPLETED HAIR GROOMING WITH SETUP. PT REQUIRED INCREASED COG CUES. THANK YOU, DALE JORDAN
--- NOTE | 2019-06-11 18:35 | NUR ---
RESTING IN BED. NO C/O PAIN. NO S/S OF ACUTE DISTRESS NOTED. DENIES ANY NEEDS AT THIS TIME. CALL LIGHT IN REACH. WILL CONTINUE TO MONITOR.
--- NOTE | 2019-06-11 19:31 | NUR ---
IN BED WITH EYES CLOSED, AROUSES EASILY TO VOICE. DENIES ANY PAIN AT THIS TIME. ALERT TO PERSON, ENVIRONMENT. TELEMETRY IN PLACE. IV TO LEFT FA IS PATENT WITH FLUIDS INFUSING VIA ORDERS. WILL NOTE ANY CHANGE.
[2019-06-11 20:39] VITALS: BP 158/72
--- NOTE | 2019-06-12 01:40 | NUR ---
I have reviewed this patient and I concur with the Shift Assessment completed by the Licensed Practical Nurse today this shift.
--- NOTE | 2019-06-12 03:56 | NUR ---
RESTED WELL THIS SHIFT, HAS NOT VOICED ANY CONCERNS. RESTING QUIETLY AT THIS TIME.
[2019-06-12 05:03] VITALS: BP 183/89
--- NOTE | 2019-06-12 05:37 | NUR ---
VERY DISGRUNTLED THIS MORNING. SAYS THE DARK CURLY HAIRED CONSTANCE TOLD HER YESTERDAY SHE COULD GO HOME THIS MORNING AND SHE DOES NOT UNDERSTAND WHY WE ARE WANTING TO GIVE HER MEDICATION OR DRAW HER BLOOD, SHE KEEPS SAYING EVERYONE HAS TOLD HER THAT SHE IS GOING HOME, THIS NURSE ATTEMPTED TO EDUCATE PT THAT THE STAFF ON THIS SHIFT HAVE NOT INSTRUCTED HER OF THIS AND THAT ONLY THE DR ARE ALLOWED TO MAKE THOSE DECISIONS. SHE IS VERY UNHAPPY WITH MOST STAFF, WE ATTEMPTED TO REDIRECT HER, IT WAS UNSUCCESSFUL. WILL NOTE ANY BORJA.
--- NOTE | 2019-06-12 06:55 | NUR ---
ALERT, RESTING IN BED. VERY DETERMINED TO GO HOME TODAY. SIGNIFICANT OTHER AT BEDSIDE. NO C/O PAIN. NO S/S OF ACUTE DISTRESS NOTED. UP WITH ASSIST. SWELLING AND BRUISING TO RIGHT WRIST. JUAN ALARM ON. IV TO LEFT FOREARM, NS INFUSING @ 75ML/HR. TELEMETRY 106 ST WITH PACS. DENIES ANY NEEDS AT THIS TIME. CALL LIGHT IN REACH. WILL CONTINUE TO MONITOR.
[2019-06-12 08:34] LABS: ANION GAP 10.2 mmol/L (8-16); BILIRUBIN - TOTAL 1.13 mg/dL (0.2-1.3); CALCIUM 10.1 mg/dL (8.5-10.1); CARBON DIOXIDE 25.8 mmol/L (21.0-32.0); CREATININE - SERUM 0.8 mg/dL (0.6-1.3); PROTEIN - SERUM 7.6 g/dL (6.4-8.2)
[2019-06-12 09:18] LABS: HEMOGLOBIN 10.8 g/dL (12-16); MCH 32.5 pg (26.0-34.0); MCHC 32.7 g/dL (31.0-37.0); MCV 99.4 fL (80.0-100.0); MEAN PLATELET VOLUME 10.8 fL (7.4-10.4); RBC 3.32 10x6/uL (4.00-5.40); RDW 13.6 % (11.5-14.5); WBC 7.1 10x3/uL (4.8-10.8)
[2019-06-12 09:21] VITALS: BP 126/72
[2019-06-12 09:23] LABS: PLATELET COUNT 188 10x3/uL (130-400)
[2019-06-12 10:24] LABS: EOSINOPHILS 1 % (0-7); LYMPHOCYTES 23 % (15-50); MONOCYTES 21 % (2-11); NEUTROPHILS 52 % (40-80); PLATELET ESTIMATE NORMAL; ROULEAUX OCC
--- NOTE | 2019-06-12 11:30 | NUR ---
I have reviewed this patient and I concur with the Shift Assessment completed by the Licensed Practical Nurse today this shift.
--- NOTE | 2019-06-12 12:54 | NUR ---
MATERIALS BRANCH CHIEF STATED THERE IS A CHANGE IN RHYTHUM ON MONITOR, MORE FREQUENT PACS PRESENT. NOTIFIED IRISHSolagne NIETON. ORDERED STAT MAG AND EKG. SHOWED RESULTS OF EKG TO CONTINUOUS IMPROVEMENT MANAGER, PAGED CARDIOLOGY. DR. PHOENIX RETURNED PAGE, THIS NURSE SPOKE WITH ALBAN. PHYSICIAN STATED, NOT CONCERNED AT THIS TIME WITH INCREASES PACS ON EKG. THIS NURSE NOTIFIED CONTINUOUS IMPROVEMENT MANAGER OF RESPONSE OF NET DEVELOPER CONTRACT.
[2019-06-12 13:10] VITALS: BP 165/103
[2019-06-12] MEDS ORDERED: LEVOFLOXACIN500 MG PO (13:49)
[2019-06-12] MEDS ORDERED: SULFAMETHOXAZOL1 TA2 PO (13:55)
[2019-06-12 14:05] VITALS: BP 136/85
--- NOTE | 2019-06-12 14:47 | MORECARE ---
CASE MANAGEMENT DISCHARGE SUMMARY PATIENT: SANDI MONTAÑO [place] UNIT: [id number] ADM DATE: 06/08/19 AGE: 83 : 37 SEX: F ROOM/BED: D.2232 AUTHOR: STEFAN RICHARDSON PHYSICIAN: REFERRING PHYSICIAN: BLAISE DESHPANDE MD DATE OF SERVICE: 06/12/19 Discharge Plan Patient Name: SANDI MONTAÑO Facility: [facility]:[place] : 1935 Planned Disposition: Home Anticipated Discharge Date: Discharge Date: Expected LOS: Initial Reviewer: [id number] Initial Review Date: 06/10/2019 Generated: 06/12/19 3:47 pm Comments DCP- Discharge Planning Updated by [id number]: Terra Roberto on 06/12/19 1:[address] Patient Name: SANDI MONTAÑO Encounter No: [id number] : 1935 Primary Insurance: MEDICARE A & B Anticipated DC Date: Planned Disposition: Home External Planned Provider: : DCP follow-up note: Patient and family in agreement with discharge plan. No changes to plan. She refuses home health, states "I know what it is, I have had it before and I don't want it. " Significant other is in the room and he also declines for her. He states "she don't need it." Case management will follow and assist as needed. Terra Roberto DCP- Discharge Planning Updated by [id number]: Terra Roberto on 06/10/19 2:[address] Patient Name: SANDI MONTAÑO Admission Status: ER Accout number: [id number] Admission Date: 06-08-2019 : 1935 Admission Diagnosis: Attending: BLAISE DESHPANDE Current LOS: 2 Anticipated DC Date: Planned Disposition: Home Primary Insurance: MEDICARE A & B Discharge Planning Comments: CM met with patient to discuss discharge planning/needs, she is alone in the room. She states she lives with her significant other and has for 7 years. States she is independent with all ADL's. She is fixated on wanting to go home and declines home health. She states she has had home health before and "it didn't work out." I called Porfirio to further discuss discharge plans. He states she is independent, except he sets up her medications. He states that she has a cane and walker at the house, but does not use them. She also has an electric scooter. I informed him of home health, rehab and DME benefits available and he declines need at this time. CM will continue to follow and assist with discharge planning/needs. Card Table Attendant: Terra Roberto DCPIA - Discharge Planning Initial Assessment Updated by [email or web address]: Terra Roberto on 06/10/19 3:27 pm * Is the patient Alert and Oriented? Yes * How many steps to enter\\exit or inside your home? 0/0 * PCP Dr. Pablo * Pharmacy [facility] on [address] * Preadmission Environment Home with Family * ADLs Partial Dependent * Partial ADLs (Assistance needed) Medication Management * Equipment Cane Power Chair or Electric Scooter Walker * List name and contact numbers for known caregivers / representatives who currently or will assist patient after discharge: Porfirio Juan Pablo - significant other - [phone] Erin Almeida - DTR - [phone] * Verbal permission to speak to the caregivers and representatives has been obtained from the patient. Yes * Community resources currently utilized None * Additional services required to return to the preadmission environment? No * Can the patient safely return to the preadmission environment? Yes * Has this patient been hospitalized within the prior 30 days at any hospital? No Coverage Notice Reviewer: [email or web address] Lizbeth Roberto Notice Issued Date-Time: 06/12/2019 14:39 Notice Type: IM Discharge Notice Notice Delivered To: Patient Relationship to Patient: Self Laboratory Sampler Name: Delivery Method: HAND - Hand Delivered Natalie Days: Prior Verbal Notification: Recipient Understood Notice: Yes Recipient Signature: Yes Med Rec Note Co-signed by Attending: Coverage Notice Comment: IMM explained, signed, given, copy placed in MR. Her significant other is in the room and states she understands it and can sign. Reviewer: [email or web address] Lizbeth Roberto Notice Issued Date-Time: 06/12/2019 14:39 Notice Type: Patient Choice Letter Notice Delivered To: Patient Relationship to Patient: Self Laboratory Sampler Name: Delivery Method: HAND - Hand Delivered Natalie Days: Prior Verbal Notification: Recipient Understood Notice: Yes Recipient Signature: Yes Med Rec Note Co-signed by Attending: Coverage Notice Comment: MELISSA for refusal for home health signed Last DP export: 06/10/19 2:38 Patient Name: SANDI MONTAÑO Page 10132 at 1447 All edits/amendments must be made on the electronic document DICTATION DATE: 06/12/191446 BEE PRODUCER: CHRISTA 06/12/191446 RPT#: [id number] DC DATE: STATUS: ADM IN [facility] [address] [place] [address] END OF REPORT
--- NOTE | 2019-06-12 15:15 | NUR ---
I have reviewed this patient and I concur with the Shift Assessment completed by the Licensed Practical Nurse today this shift.
--- NOTE | 2019-06-12 16:16 | NUR ---
DISCHARGED PATIENT VIA WHEELCHAIR, WITH FAMILY. WENT OVER DISCHARGE INSTRUCTIONS WITH PATIENT AND FAMILY, VERBALIZED UNDERSTANDING OF INSTRUCTIONS. NO C/O PAIN. NO S/S OF ACUTE DISTRESS NOTED. DENIES ANYTHING FURTHER AT THIS TIME.
--- NOTE | 2019-06-13 16:03 | MORECARE ---
CASE MANAGEMENT DISCHARGE SUMMARY PATIENT: SANDI MONTAÑO [place] UNIT: [id number] ADM DATE: 06/08/19 AGE: 83 : 37 SEX: F ROOM/BED: D.2232 AUTHOR: STEFAN RICHARDSON PHYSICIAN: REFERRING PHYSICIAN: BLAISE DESHPANDE MD DATE OF SERVICE: 06/13/19 Discharge Plan Patient Name: SANDI MONTAÑO Facility: [facility]:[place] : 1935 Planned Disposition: Home Anticipated Discharge Date: Discharge Date: 06/12/2019 Expected LOS: Initial Reviewer: [email or web address] Initial Review Date: 06/10/2019 Generated: 06/13/19 5:02 pm Comments DCP- Discharge Planning Updated by [email or web address]: Terra Roberto on 06/12/19 1:[address] Patient Name: SANDI MONTAÑO Encounter No: [id number] : 1935 Primary Insurance: MEDICARE A & B Anticipated DC Date: Planned Disposition: Home External Planned Provider: : DCP follow-up note: Patient and family in agreement with discharge plan. No changes to plan. She refuses home health, states "I know what it is, I have had it before and I don't want it. " Significant other is in the room and he also declines for her. He states "she don't need it." Case management will follow and assist as needed. Terra Roberto DCP- Discharge Planning Updated by [email or web address]: Terra Roberto on 06/10/19 2:[address] Patient Name: SANDI MONTAÑO Admission Status: ER Accout number: [id number] Admission Date: 06-08-2019 : 1935 Admission Diagnosis: Attending: BLAISE DESHPANDE Current LOS: 2 Anticipated DC Date: Planned Disposition: Home Primary Insurance: MEDICARE A & B Discharge Planning Comments: CM met with patient to discuss discharge planning/needs, she is alone in the room. She states she lives with her significant other and has for 7 years. States she is independent with all ADL's. She is fixated on wanting to go home and declines home health. She states she has had home health before and "it didn't work out." I called Porfirio to further discuss discharge plans. He states she is independent, except he sets up her medications. He states that she has a cane and walker at the house, but does not use them. She also has an electric scooter. I informed him of home health, rehab and DME benefits available and he declines need at this time. CM will continue to follow and assist with discharge planning/needs. Dental Technology Advisor: Terra Roberto DCPIA - Discharge Planning Initial Assessment Updated by [email or web address]: Terra Roberto on 06/10/19 3:27 pm * Is the patient Alert and Oriented? Yes * How many steps to enter\\exit or inside your home? 0/0 * PCP Dr. Pablo * Pharmacy [facility] on [address] * Preadmission Environment Home with Family * ADLs Partial Dependent * Partial ADLs (Assistance needed) Medication Management * Equipment Cane Power Chair or Electric Scooter Walker * List name and contact numbers for known caregivers / representatives who currently or will assist patient after discharge: Porfirio Almeida - significant other - [phone] Erinтатьяна Almeida - DTR - [phone] * Verbal permission to speak to the caregivers and representatives has been obtained from the patient. Yes * Community resources currently utilized None * Additional services required to return to the preadmission environment? No * Can the patient safely return to the preadmission environment? Yes * Has this patient been hospitalized within the prior 30 days at any hospital? No Coverage Notice Reviewer: [email or web address] Lizbeth Roberto Notice Issued Date-Time: 06/12/2019 14:39 Notice Type: IM Discharge Notice Notice Delivered To: Patient Relationship to Patient: Self Naturalist Name: Delivery Method: HAND - Hand Delivered Natalie Days: Prior Verbal Notification: Recipient Understood Notice: Yes Recipient Signature: Yes Med Rec Note Co-signed by Attending: Coverage Notice Comment: IMM explained, signed, given, copy placed in MR. Her significant other is in the room and states she understands it and can sign. Reviewer: [id number] Lizbeth Roberto Notice Issued Date-Time: 06/12/2019 14:39 Notice Type: Patient Choice Letter Notice Delivered To: Patient Relationship to Patient: Self Naturalist Name: Delivery Method: HAND - Hand Delivered Natalie Days: Prior Verbal Notification: Recipient Understood Notice: Yes Recipient Signature: Yes Med Rec Note Co-signed by Attending: Coverage Notice Comment: MELISSA for refusal for home health signed Last DP export: 06/12/19 1:47 Patient Name: SANDI MONTAÑO Page 53659 at 1603 All edits/amendments must be made on the electronic document DICTATION DATE: 06/13/191601 MARKETING EDUCATION TEACHER: CHRISTA 06/13/191601 RPT#: [id number] DC DATE:06/12/19 STATUS: DIS IN [facility] [address] [place] [address] END OF REPORT
[2019-07-03] MEDS ORDERED: CRANBERRY PO (09:47)
== END 2019-06-12 16:18 | disposition home or self-care (01) | DRG 564 ==
LOC: D.ER 10:09 → D.MS 13:37
PROVIDERS: Emergency Medicine; Family Medicine; General Practice; Orthopaedic Surgery; ADMIT Emergency Medicine; ATTEND Emergency Medicine
PROC: 0R9N3ZX Drainage of Right Wrist Joint, Percutaneous Approach, Diagnostic (ICD-10-PCS; principal; 2019-06-09 14:00)
DX: M25.431 Effusion, right wrist (principal); G93.41 Metabolic encephalopathy; N39.0 Urinary tract infection, site not specified; I48.19 Other persistent atrial fibrillation; M25.531 Pain in right wrist; E03.9 Hypothyroidism, unspecified; I10 Essential (primary) hypertension; I50.9 Heart failure, unspecified; Z79.01 Long term (current) use of anticoagulants; T46.0X5A Adverse effect of cardiac-stimulant glycosides and drugs of similar action, initial encounter; I25.10 Atherosclerotic heart disease of native coronary artery without angina pectoris; M19.90 Unspecified osteoarthritis, unspecified site

== ENCOUNTER 2019-07-07 06:55 | Inpatient (IN) | payer MEDICARE, BC ==
--- NOTE | 2019-07-03 10:31 | NUR ---
notified janice antony's nurse about difference on bp readings. rt-117/42 lt-121/80. she stated she would let janice know.
[2019-07-03 10:56] LABS: HEMATOCRIT 35.8 % (36.0-48.0); HEMOGLOBIN 11.6 g/dL (12-16); MCH 32.8 pg (26.0-34.0); MCHC 32.4 g/dL (31.0-37.0); MCV 101.1 fL (80.0-100.0); MEAN PLATELET VOLUME 10.2 fL (7.4-10.4); RBC 3.54 10x6/uL (4.00-5.40); RDW 13.8 % (11.5-14.5); WBC 6.4 10x3/uL (4.8-10.8)
[2019-07-03 11:05] LABS: ANION GAP 9.1 mmol/L (8-16); CALCIUM 10.2 mg/dL (8.5-10.1); CARBON DIOXIDE 26.1 mmol/L (21.0-32.0); POTASSIUM - SERUM 4.2 mmol/L (3.5-5.1)
[2019-07-03 11:15] LABS: APTT 33.8 SECONDS (22.8-39.4); INR 1.32 (0.85-1.17); PROTIME 15.8 SECONDS (11.6-15.0)
[2019-07-07] VITALS (13 sets, daily range): BP systolic 143–191; BP diastolic 77–92; BMI 19.3; BMI 19.4
[~2019-07-07] VITALS: Ht 163.8 cm; Wt 51.9 kg
[~2019-07-07 06:55] MED LIST changes: +CRANBERRY PO; +LEVOFLOXACIN500 MG PO; +LIPITOR20 MG PO; +SULFAMETHOXAZOL1 TA2 PO
--- NOTE | 2019-07-07 12:59 | NUR ---
PT WILL BE GOING TO ROOM 2303 INSTEAD OF MED II R/T NEED FOR RESTRAINTS FOR PT SAFETY POST PACEMAKER INSERTION.
--- NOTE | 2019-07-07 13:26 | NUR ---
called betty about admission status
--- NOTE | 2019-07-07 13:26 | NUR ---
patient arrived to unit
--- NOTE | 2019-07-07 15:46 | NUR ---
family at bedside. sip of water given for dry mouth.
--- NOTE | 2019-07-07 19:00 | NUR ---
BEDSIDE REPORT AND SHIFT ASSESSMENT COMPLETE, SEE FLOWSHEET. L CHEST DRSNG CDI, L ARM IN SLING. NO SIGNS OF ACUTE DISTRESS NOTED. DENIES NEEDS AT THIS TIME, CALL LIGHT IN REACH. WILL MONITOR.
--- NOTE | 2019-07-07 21:00 | NUR ---
PT SLEEPING. VSS, NO SIGNS OF ACUTE DISTRESS NOTED. BED IN LOW POSITION, CALL LIGHT IN REACH. WILL MONITOR.
--- NOTE | 2019-07-07 22:00 | NUR ---
PT C/O PAIN AT PACER SITEAR NOTIFIED AND NEW ORDERS RECEIVED.
--- NOTE | 2019-07-07 23:00 | NUR ---
REASSESSMENT COMPLETE, SEE FLOWSHEET. PT RESTING QUIETLY. WILL MONITOR.
[2019-07-08] VITALS (11 sets, daily range): BP systolic 131–193; BP diastolic 69–113; Ht 163.8 cm; Wt 51.9 kg
--- NOTE | 2019-07-08 01:00 | NUR ---
ASSISTED PT TO BEDSIDE COMMODE AND BACK TO BED.
--- NOTE | 2019-07-08 01:45 | NUR ---
PT OBSERVED GETTING OOB WITHOUT ASSISTANCE. INSTRUCTED PT TO CALL NURSE WHEN NEEDING TO GET UP, CONFUSION NOTED.
--- NOTE | 2019-07-08 02:45 | NUR ---
PT OOB WITHOUT ASSISTANCE, BED ALARM WENT OFF. ASSISTED BACK TO BED. B/P HIGH, WILL MONITOR.
--- NOTE | 2019-07-08 03:00 | NUR ---
REASSESSMENT COMPLETE, SEE FLOWSHEET.
--- NOTE | 2019-07-08 04:20 | NUR ---
PT ATTEMPTING TO GET OOB. ASKED HER WHERE SHE WAS GOING AND SHE SAID TO COME GET THE NURSE. I REORIENTED HER AND EXPLAINED THE IMPORTANCE OF PRESSING THE CALL LIGHT BUTTON PRIOR TO GETTING OOB.
--- NOTE | 2019-07-08 04:45 | NUR ---
L WRIST PIV D/C, 22G PIV RESITED TO L HAND.
--- NOTE | 2019-07-08 05:45 | NUR ---
ASSISTED PT TO SIT IN BEDSIDE CHAIR.
--- NOTE | 2019-07-08 06:25 | NUR ---
CHAIR ALARM WENT OFF, PT ATTEMPTING TO GET OUT OF CHAIR. ASSISTED TO BEDSIDE COMMODE. LG BM NOTED. ASSISTED BACK TO CHAIR.
--- NOTE | 2019-07-08 07:33 | NUR ---
report recieved. patient was in chair trying to get into bed. patient confused. baseline dementia. blood pressure was 161/119. heart rate was 143. morning medication given per oct. will reassess medication effectiveness. lungs cta. resited l hand IV.
--- NOTE | 2019-07-08 07:57 | OP ---
PATIENT NAME: SANDI MONTAÑO MEDICAL RECORD: [id number] :39 LOCATION:.[facility] D.2309 ADMISSION DATE: SURGEON: JORDI JOYNER MD DATE OF OPERATION: 07/07/2019 SURGEON: Jordi Joyner MD TORQUE TESTER: None. PROCEDURE PERFORMED: Insertion of single chamber permanent pacemaker. PREOPERATIVE DIAGNOSES: Sick sinus syndrome and chronic atrial fibrillation. POSTOPERATIVE DIAGNOSES: Sick sinus syndrome and chronic atrial fibrillation. ANESTHESIA: Intravenous sedation. COMPLICATIONS: None. SPECIMENS: None. CONDITION: Stable. DISPOSITION: ICU. OPERATIVE FINDINGS: Good pacing and sensing threshold. OPERATIVE INDICATION: Recurrent bradycardia and treatment for atrial fibrillation in an elderly female. PROCEDURE NOTE IN DETAIL: The patient was brought to the operating suite where intravenous sedation was given. Left chest was sterilely prepped and draped. A 1% Xylocaine used for local anesthetic. A subcutaneous pocket was created just on the surface of the pectoral muscle. Single stick left subclavian vein and a 45 cm lead was used to the extent of the lead placed in the ventricle and the lead was screwed in, good pacing and sensing threshold was noted. The suture sleeve was used to secure the lead, it was connected to the pacemaker generator. After thorough antibiotic irrigation and the pacemaker generator was sutured in the pocket, the wound was closed with 3 layers including Dermabond on the skin and the patient to recovery room stable. TRANSINT:[id number] Voice Confirmation ID: [id number] DOCUMENT ID: [id number] JORDI JOYNER MD at 0757 CC: OZIEL PHOENIX [id number] DICTATION DATE: 07/07/19 1317 HOME HEALTH CARE SOCIAL WORKER: 07/07/19 1350 REG [facility] [address] [id number]
--- NOTE | 2019-07-08 08:02 | NUR ---
VERONICA SPOKE WITH DR JOYNER. [facility] TELEPHONE ORDER
--- NOTE | 2019-07-08 08:02 | NUR ---
PAGED DR PHOENIX
--- NOTE | 2019-07-08 08:03 | NUR ---
PER DR PHOENIX TELEPHONE ORDER: GIVE ANOTHER BETAPACE.
--- NOTE | 2019-07-08 15:53 | NUR ---
CALLED CARMEL (SPOUSE) AND STATED SHE WILL BE DISCHARGING STATED HE WAS ON HIS WAY
--- NOTE | 2019-07-08 15:53 | NUR ---
DR JOYNER STATED PATIENT IS ABLE TO DISCHARGE. 10 OF APRESOLINE ORDERED AND GIVEN.
--- NOTE | 2019-07-08 16:39 | NUR ---
patient gone via wheelchair. patient left pacemaker book in bed. called patient spouse and stated nguyễn from [facility] will get it tomorrow as she is the daughter of the spouse. i will leave a note attatched at the nurses station stating this and that nguyễn is to pick remover. follw up appointment 07/30/19 at 1030. all discharge paper work with patient. discharge instructions given.
--- NOTE | 2019-07-08 20:01 | MORECARE ---
CASE MANAGEMENT DISCHARGE SUMMARY PATIENT: SANDI MONTAÑOHAM UNIT: [id number] ADM DATE: 07/08/19 AGE: 83 : 37 SEX: F ROOM/BED: D.2309 AUTHOR: STEFAN RICHARDSON PHYSICIAN: REFERRING PHYSICIAN: JORDI JOYNER MD DATE OF SERVICE: 07/08/19 Discharge Plan Patient Name: SANDI MONTAÑO Facility: [facility]:[place] : 1935 Planned Disposition: Home Anticipated Discharge Date: Discharge Date: 07/08/2019 Expected LOS: Initial Reviewer: [email or web address] Initial Review Date: 07/08/2019 Generated: 07/08/19 9:01 pm Comments DCP- Discharge Planning Updated by [email or web address]: Nelly Mcdaniels on 07/08/19 7:[address] Patient Name: SANDI MONTAÑO Admission Status: Elective Accout number: [id number] Admission Date: 07-08-2019 : 1935 Admission Diagnosis: Attending: JORDI JOYNER Current LOS: 1 Anticipated DC Date: Planned Disposition: Home Primary Insurance: MEDICARE A & B Discharge Planning Comments: CM met with patient and significant other (Porfirio) to complete initial dc planning assessment. CM educated patient on the CM role and verbal consent given by patient to complete assessment. Patient lives at home with her significant other where she is independent with her care other than having confusion / memory problems. At discharge patient plans to return home and feels this is a safe discharge. CM discussed availability of home health, rehab services, and medical equipment. Porfirio will be her semi driver home. Patient has a walker Patient denied known discharge needs at this time. CM will continue to follow and will assist as needed with dc plans/needs. Heavy Equipment Engine Mechanic: Nelly Mcdaniels Coverage Notice Reviewer: [id number] - Nelly Mcdaniels Notice Issued Date-Time: 07/08/2019 12:13 Notice Type: Medicare Outpatient Observation Notice Notice Delivered To: Family Member Relationship to Patient: Life Partner Shift Commander Name: PORFIRIO HANSEN Delivery Method: HAND - Hand Delivered Natalie Days: Prior Verbal Notification: Recipient Understood Notice: Yes Recipient Signature: Yes Med Rec Note Co-signed by Attending: Coverage Notice Comment: Patient Name: SANDI MONTAÑO Page [id number] at 2000 All edits/amendments must be made on the electronic document DICTATION DATE: 07/08/192000 NUMERICAL CONTROL LATHE OPERATOR: CHRISTA 07/08/192000 RPT#: [id number] DC DATE:07/08/19 STATUS: DIS IN [facility] [address] [place] [address] END OF REPORT
== END 2019-07-08 16:44 | disposition home or self-care (01) | DRG 259 ==
LOC: D.OPS 06:55 → D.ICU 06:55 → D.OPS 07:30 → D.PAN 07:30 → D.OPS 09:30 → D.ICU 13:00 → D.OPS 07-08 12:26 → D.ICU 07-08 12:27
PROVIDERS: ADMIT Thoracic Surgery (Cardiothoracic Vascular Surgery); ATTEND Thoracic Surgery (Cardiothoracic Vascular Surgery)
PROC: 0JH604Z Insertion of Pacemaker, Single Chamber into Chest Subcutaneous Tissue and Fascia, Open Approach (ICD-10-PCS; principal; 2019-07-07 09:30)
DX: I49.5 Sick sinus syndrome (principal); F05 Delirium due to known physiological condition; I48.20 Chronic atrial fibrillation, unspecified

== ENCOUNTER 2019-07-13 09:06 | Emergency (ER) | payer MEDICARE, BC ==
[~2019-07-13] VITALS: Ht 163.8 cm; Wt 51.8 kg
[2019-07-13 09:34] VITALS: Ht 163.8 cm; Wt 51.8 kg
[2019-07-13 10:38] LABS: APPEARANCE CLEAR (CLEAR); BACTERIA FEW /hpf (NEGATIVE); BILIRUBIN NEGATIVE (NEGATIVE); COLOR YELLOW (YELLOW); EPITHELIAL CELLS 0-5 /hpf (0-5); GLUCOSE NEGATIVE (NEGATIVE); KETONE NEGATIVE (NEGATIVE); MUCUS <1+ /lpf (NONE SEEN); NITRITE NEGATIVE (NEGATIVE); PROTEIN TRACE mg/dL (NEGATIVE); RED CELLS - URINE 0-5 /hpf (0-5); UROBILINOGEN NORMAL (NORMAL); YEAST >1+ /hpf (NONE SEEN)
[2019-07-13 10:40] LABS: HEMATOCRIT 29.9 % (36.0-48.0); HEMOGLOBIN 9.9 g/dL (12-16); MCHC 33.1 g/dL (31.0-37.0); MCV 99.7 fL (80.0-100.0); MEAN PLATELET VOLUME 10.5 fL (7.4-10.4); PLATELET COUNT 175 10x3/uL (130-400); RDW 13.5 % (11.5-14.5); WBC 8.6 10x3/uL (4.8-10.8)
[2019-07-13 10:48] LABS: ANION GAP 6.5 mmol/L (8-16); CALCIUM 10.2 mg/dL (8.5-10.1); CARBON DIOXIDE 25.3 mmol/L (21.0-32.0); CREATININE - SERUM 0.8 mg/dL (0.6-1.3); POTASSIUM - SERUM 3.8 mmol/L (3.5-5.1)
[2019-07-13 10:54] LABS: ALBUMIN 2.7 g/dL (3.4-5.0); BILIRUBIN - TOTAL 1.65 mg/dL (0.2-1.3); PROTEIN - SERUM 7.8 g/dL (6.4-8.2)
[2019-07-13 11:01] LABS: LYMPHOCYTES 29 % (15-50); MONOCYTES 27 % (2-11); NEUTROPHILS 44 % (40-80); PLATELET ESTIMATE NORMAL
[2019-07-13 11:02] LABS: HYPOCHROMASIA 2+
[2019-07-13] MEDS ORDERED: MACROBID100 MG PO (12:15)
[2019-07-13 12:59] VITALS: BP 146/96
== END 2019-07-13 13:00 | disposition home or self-care (01) ==
LOC: D.ER 09:06
PROVIDERS: Emergency Medicine
DX: R53.1 Weakness (principal); D53.9 Nutritional anemia, unspecified; R41.0 Disorientation, unspecified; Z86.73 Personal history of transient ischemic attack (TIA), and cerebral infarction without residual deficits; Z87.440 Personal history of urinary (tract) infections; E87.1 Hypo-osmolality and hyponatremia; Z95.0 Presence of cardiac pacemaker; I25.2 Old myocardial infarction; E07.9 Disorder of thyroid, unspecified; I25.10 Atherosclerotic heart disease of native coronary artery without angina pectoris

== ENCOUNTER → 2020-03-12 12:29 | Outpatient (CLI) | payer MEDICARE, BC ==
[2019-07-13 09:34] VITALS: BMI 19.3
[~2020-03-12 12:29] MED LIST changes: +MACROBID100 MG PO
== END | disposition home or self-care (01) ==
LOC: D.MRI 12:29
PROVIDERS: ATTEND Psychiatry & Neurology Neurology
DX: F03.90 Unspecified dementia, unspecified severity, without behavioral disturbance, psychotic disturbance, mood disturbance, and anxiety (principal)

== ENCOUNTER 2020-11-05 19:04 | Emergency (ER) | payer MEDICARE, BC ==
[~2020-11-05] VITALS: Ht 165.1 cm; Wt 50.0 kg
[2020-11-05 19:38] VITALS: Ht 165.1 cm; Wt 50.0 kg
[2020-11-05 22:14] VITALS: BP 170/60
== END 2020-11-05 22:15 | disposition home or self-care (01) ==
LOC: D.ER 19:04
DX: R11.2 Nausea with vomiting, unspecified (principal); R10.9 Unspecified abdominal pain; I25.2 Old myocardial infarction; Z86.73 Personal history of transient ischemic attack (TIA), and cerebral infarction without residual deficits; K59.00 Constipation, unspecified